=== PATIENT | female | born 1940 | race Caucasian/White ===

== ENCOUNTER → 2018-02-15 03:42 | Outpatient (CLI) | payer MEDICARE, OTHER, SELFPAY ==
[2018-02-15 10:40] LABS: CREATININE 1.22 mg/dL (0.55-1.02); Estimated GFR 42.74 (mL/min/1.73m2)
== END ==
PROVIDERS: PCP Family Medicine; Visit Provider Family Medicine
DX: E78.5 Hyperlipidemia, unspecified (principal)
CPT/HCPCS: 36415; 82565

== ENCOUNTER → 2018-02-18 00:21 | Outpatient (CLI) | payer MEDICARE, OTHER, SELFPAY ==
--- NOTE | 2018-02-18 09:43 | DI.REPORT_ITS ---
SYMPTOM/DIAGNOSIS: LUMBAR RADICULOPATHY M54.16, L2-4 PAIN, LEG PAIN MRI LUMBAR SPINE: Routine noncontrast examination was performed. There is spinal fixation seen at L5-S1. The conus medullaris has a normal appearance and location. At L5-S1 there is no focal disc herniation or central spinal canal stenosis. Mild bilateral neural foraminal stenosis is present. At L4-L5 there is a mild diffuse disc bulge. No focal disc herniation or central spinal canal stenosis is present. No significant neural foraminal stenosis is seen. At L3-L4 there is disc desiccation. End plate degenerative signal changes are present. There is mild diffuse disc bulge. There are hypertrophic changes of the facets and ligamentum flavum. No significant central spinal canal stenosis is present. There is mild narrowing of the neural foramen bilaterally. At L2-L3 there is a diffuse disc bulge. There are hypertrophic changes of the facets and ligamentum flavum causing mild narrowing of the central spinal canal. There is no significant neural foraminal stenosis. At L1-L2 there is a mild diffuse disc bulge. Disc desiccation is present. No focal disc herniation, central spinal canal or neural foraminal stenosis is seen. Following contrast administration no significant abnormal enhancement is identified. IMPRESSION: Multi-level degenerative changes in the lumbar spine resulting in multi-level central spinal canal neural foraminal stenosis as described above.
--- NOTE | 2018-02-18 10:30 | DI.REPORT_ITS ---
SYMPTOM/DIAGNOSIS: SEVERE T11-12 PAIN, THORACIC SPINE PAIN M54.56 MRI THORACIC SPINE: Routine noncontrast examination was performed. There is normal signal in the spinal cord. There is a right convex curvature of the thoracic spine. Mild degenerative changes are seen in the thoracic spine with end plate osteophytes and end plate degenerative signal change noted. No central spinal canal or neural foraminal stenosis is seen in the thoracic spine. There are several small disc bulges seen throughout the thoracic spine. IMPRESSION: 1. No central spinal canal or neural foraminal stenosis is seen in the thoracic spine. 2. Mild to moderate degenerative changes seen in the thoracic spine. 3. Right convex curvature of the thoracic spine.
[2018-02-18] MEDS: Gadoterate meglumine 20 ML VIAL 8 ML IVP (11:35)
== END ==
PROVIDERS: PCP Family Medicine; Visit Provider Family Medicine
DX: M54.16 Radiculopathy, lumbar region (principal); M54.6 Pain in thoracic spine; Z47.89 Encounter for other orthopedic aftercare; M51.26 Other intervertebral disc displacement, lumbar region; M51.16 Intervertebral disc disorders with radiculopathy, lumbar region; M51.14 Intervertebral disc disorders with radiculopathy, thoracic region
CPT/HCPCS: 72146; 72158

== ENCOUNTER → 2018-03-03 09:46 | Outpatient (CLI) | payer MEDICARE, OTHER, SELFPAY ==
[2018-03-08 10:40] LABS: Misc Referral (MAYO) SEE COMMENTS
== END ==
PROVIDERS: PCP Family Medicine; Visit Provider Internal Medicine Hematology & Oncology
DX: C92.10 Chronic myeloid leukemia, BCR/ABL-positive, not having achieved remission (principal)
CPT/HCPCS: 36415; 81206

== ENCOUNTER 2018-03-08 09:00 | Outpatient (RCR) | payer MEDICARE, OTHER, SELFPAY ==
--- NOTE | 2018-02-09 10:47 | IE_ITS ---
Date: February 09, 2018 Referring: Tana Adler M.D. M.D. Diagnosis: acute right sided LBP and right sided thoracic pain SUBJECTIVE: History of Present Illness: Rubina reports an insidious onset of right sided LBP one week ago. She spent the night at a B&B, sleeping on a different bed, and thinks this may have aggravated her symptoms. Cannot really recall any injury per say. Symptoms intensified over two days, to the point where she started having intensifying LBP that turned into radiculopathy in the right LE, down the posterior lateral aspect to her ankle. Pain Rating: At time of I.E. 7/10 and at its worst 9/10 in the past 3 days. Pain Location: Right sided LB, glute/buttock radiating down the posterior lateral thigh to the ankle. Denies any foot symptoms. Current Level of Function: Unable to walk, stand or lift. Also, has discomfort after sitting for greater than 15 minutes. She has resorted to walking with a cane. Has limited ability to lift objects from floor level. She denies any bowel or bladder dysfunction. (-) cough / sneeze. Previous Treatment: N/A Social: Lives in a multi level home with her . They are retired. Comorbidities: GERD, hypertension, diverticulosis, chronic myelocytic leukemia, asthma, hyperlipidemia, impaired renal function, multi nodular goiter, neuropathy, right shoulder pain, thyroid nodule, lumbar fusion L5/S1 Medications: See patient EMR. Quality of Life: __x__ Fair Standardized Measures: MOLBPDQ: __56%__ OBJECTIVE: Posture: The patient presents with decreased lumbar lordosis, level iliac crests and tends to shift her weight in stance to the left LE, but with a (-) lateral shift. Gait: Antalgic with weight bearing on the right and decreased stance phase on the right with use of a cane. She was educated in proper cane use, as she was initially using it in her right hand. Palpation: Pain with PAs to L3/4. Pain with palpation through the glute medius and piriformis on the right. Also, increased tone through the lumbar paraspinals on the right. Hypo mobility detected with PAs through the lower thoracic and upper lumbar spine; T10 through L3. ROM: Active lumbar spine ROM into flexion 6 fingertips to floor with a pulling sensation through the low back, however no reproduction of radiculopathy. Extension 10 with complaints of central LBP without radiculopathy. Side bending 4 fingertips to the lateral knee joint line right ; 2 1/2 fingertips to the lateral knee joint line left. Rotation is 60 bilaterally with tightness reported at end range. Hip ROM is WFL. Strength: 4/5 bilateral LEs with pain with resisted hip flexion and unilateral heel raise on the right. She is able to heel walk and toe walk. Neuro: The patient reports intact sensation to light touch throughout bilateral LEs. DTRs are +2 knee jerk bilaterally and +1 ankle jerk bilaterally. Myotomes are congruent bilaterally; no deficits. Special Tests: (-) dural tension testing with SLR or slump testing. (+) quadrant compression testing on the right. Diagnostics: Xrays reveal interval worsening of degenerative disc changes at L3 /4 and questionable L4/5 compared to xrays in 2016. Treatment: IE: 78207 x1 Unattended estim: 84565 x1 Patient Education: I.E. followed by integrated dry needling (esteban fee for service). The patient read and signed dry needling information and consent for treatment today. She was educated in the definition of dry needling risks and benefits as well as typical response and expected outcomes. Quantitative analysis: right deep radial nerve 2/4, left deep radial nerve 2/4 , right saphenous nerve 3/4; left saphenous nerve 2/4 = 9/16 indicating an average responder to dry needling, needing up to 16 treatment with their effects lasting 4 to 6 months. Homeostatic points used today: bilateral superior cluneal and inferior gluteal 3 as well as symptomatic points: 3 through the glute medius along with the medial and lateral piriformis trigger points with 3 needles on the right. Also , applied estim connecting paraspinal sites L3 through L5 with 2. On the right , estim was applied from L3 to trigger point in the lateral distal hamstring x8 min. She then received moist heat with estim to the low back x10 minutes in prone. Direct treatment time: 11:00 A.M. til 12:00 P.M. ASSESSMENT: Patient is a 77-year-old female, referred for PT services with the diagnosis of acute right sided LBP and right sided sciatica. Patient presents with clinical signs and symptoms consistent with this diagnosis, as demonstrated by the following impairment level findings: impaired joint mobility, motor function, muscle performance and ROM associated with spinal disorder Impairments are contributing to the following functional limitations: as listed above Patient is assessed as: __x__ Low 02350 complexity, based on the following: History: (list): See comorbidities and social history. Examination: (list): See above for functional limitations and impairments. Presentation: Stable and uncomplicated Decision-Making: Low complexity ____ Patient requires skilled PT intervention to remediate the above functional limitations to return to: __x__ Return to full functional mobility Prognosis: ___ __x__ Fair G-Codes (fill in modifier after appropriate code): Patient's primary functional limitation is in the category of: __x__ Mobility - walking and moving around : [id number] Projected goal: __x__ Mobility - walking and moving around: [id number] based on the MOLBPQ STG: __6__ weeks. 1) decrease pain by 50% 2) decrease right LE radiculopathy by 50% 3) patient independent in HEP 4) improve standing tolerance to greater than 15 minutes without pain LTG: __12__ weeks. 1) return to full, painfree functional mobility 2) patient independent in symptom management 3) decrease MOLBPQ to less than 25% PLAN: Patient to be seen 2x per week, for 12 weeks, adjusting frequency of visits per patient symptoms and response to treatment. Treatment to include: Manual therapy - 48183 - soft tissue mobs, integrated dry needling Consider use of ultrasound (57908) to the glute medius, continuous, @1.0 watt per cm sq. Therapeutic exercise - 73223 - core stabilization Unattended estim - 64949- applied w/moist heat for pain control The patient is in agreement with the above POC, and is to be discharged when the above goals have been met. Thank you for this referral. Please do not hesitate to contact me with any questions or concerns regarding this patient's plan of care. Please sign, date and return to our clinic with your approval..................................... Tana Adler M.D.
--- NOTE | 2018-02-11 08:00 | PTTR_ITS ---
DATE: 02/11/18 SUBJECTIVE: Rubina indicates today that she continues to be very uncomfortable. Nights have been particularly miserable for her. States she did travel to dinner yesterday evening and utilized a cold pack the entire trip and on the way home, did have to take a pain pill to tolerate the ride home. States she will be contacting Dr. Adler's office on Wednesday to see if she can go ahead and get the consult to Dr. Freeman started. Manual therapy: ([id number]). Did receive soft tissue mobilization throughout the R upper to low back and buttock, while in L sidelying with pillow between knees and under head. This did include tendon massage along the vertebra and medial scapular border, as well as along the iliac crest and sacral border/ posterior greater troch. Trigger point work throughout the piriformis, gluts, QL region and also cross friction along the mid thoracic and lumbar paraspinal was also performed. Did utilize facial stretching throughout the low back region and buttock while in the same position. * x Electrical Stim Unattended - 11112: Ended with IFC and spot cold to the R low back/buttock with global moist heat throughout the remaining back while in sidelying position x15 mins. Direct treatment time: 20 mins Total treatment time: 35 mins SG/dl
--- NOTE | 2018-02-14 15:48 | PTTR_ITS ---
DATE: 02/14/18 SUBJECTIVE: Rubina states she saw Dr. Adler who is indeed ordering her a MRI as well as setting her up with Dr. Freeman at [facility]. She is having a MRI of both the thoracic and lumbar spines. Reports no change in her symptoms. Still having difficulty sitting and/or standing. Position of comfort is lying down. Typically feels O.K. in the morning when first waking up, but symptoms intensify as she starts walking, performing housework and self ADLs. OBJECTIVE: Manual therapy: ([id number]). Manual distraction via leg pulls followed by gentle Grade 2 and Grade 3 PA mobs to the lower thoracic and lumbar spine, segmental rotational mobs at Grades 2 and 3, L1 through L4. Also, performed soft tissue mobs throughout bilateral lumbar and thoracic paraspinals, iliac crests, QL and PRT through bilateral glute medius and piriformis. * x Electrical Stim Unattended - [id number]: applied to the back x15 minutes in prone. Direct treatment time: 1:10 til 2:00 P.M. Assessment: No significant symptom change. Plan: Continue as indicated above progressing with stabilization supine exercises. MM/gc
--- NOTE | 2018-02-16 09:00 | PTTR_ITS ---
DATE: 02/16/18 Co-treat with supervising PT, Arnaud Marcial. OBJECTIVE: Manual therapy: ([id number]). Mobilization of soft tissue throughout the entire back while in prone. Utilized tendon massage along the iliac crest, lumbar and thoracic vertebrae, medial scap border and sacral border / posterior greater troch, with focus on the right. TPM to the upper traps and rhomboids. CFM to the right lower thoracic paraspinals and gluts. * Ended session with cryotherapy x 10 minutes to entire back and buttocks while in prone, at no charge. Direct treatment time: 15 minutes Total treatment time: 25 minutes, post time spent with supervising PT.
--- NOTE | 2018-02-16 13:38 | PTTR_ITS ---
DATE: 02/16/18 SUBJECTIVE: Rubina states she started her Prednisone taper, and feels 80% improved. Denies any radiculopathy. Still feels a heaviness around her low back region, but has no radiculopathy to speak of. She has a MRI Wednesday, and is looking forward to a consultation with Dr. Celis at [facility] in the next couple of weeks. We had a long discussion regarding symptom presentation regarding her DDD, trying to decrease the inflammation around the nerve roots, as this likely did not happen overnight. If she can get better foraminal clearance by decreasing the inflammation then she may not need to be as aggressively thinking about surgery. If she is able to maintain symptoms with use of Prednisone, and holds up well without surgery she may want to consider having any prescription of Prednisone to take with her to [facility] just in case she has an exacerbation of symptoms. She will discuss this with her PCP. OBJECTIVE: Manual therapy: ([id number]). Right LE distraction via leg pulls followed by Mulligan style SLR. Then performed PA mobs Grades 2 and 3 through the lumbar spine and some sacral decompression. Also, performed bent knee fall outs and bilateral knee to chest in supine. She then rec'd soft tissue mobs performed by the [facility]. For details see her note. Direct treatment time: 30 minutes Assessment: Prednisone is offering excellent symptom reduction in her radiculopathy and central low back pain. We discussed cutting back on her muscle relaxant as well as weaning from her narcotics. She is a little hesitant to do so at this time. Plan: Follow up with Rubina next week 1x as she is decreasing from 2 to 1 tablets for her steroidal taper. Will also be able to review her MRI results. MM/gc
--- NOTE | 2018-02-23 09:00 | PTTR_ITS ---
DATE: 02/23/18 SUBJECTIVE: Rubina states that the Prednisone is wearing off and she is starting to experience more back pain and actually experiencing some L radicular symptoms into her buttock. Uncertain as to whether or not this is related to the way she has compensated with her walking. She has not heard back from Dr. Freeman's office at [facility] for consultation there. Manual therapy: ([id number]). Manual distraction via leg pulls individual LE's, (-) dural tension testing with SLR or slump test on either LE. Does have mild pain with resisted hamstring strength test on the L at 4+/5. Also mild pain with hamstring stretch on L reproducing some of her lower buttock discomfort. We work on some hold/relax hamstring stretching followed by PA mobilizations to the lumbar spine grade 2 and 3 as well as rotational mobilizations in prone. Total treatment time: 30 mins, with continued care with Angelia Marquez PTA ( see her note for specifics) A: Patient reports intensifying symptoms as she is weaning off her Prednisone. Is really anxious to get in with Dr. Freeman as she is convinced she is a surgical candidate and this will correct her issues. I do discuss initiating some postural stabilization which she is agreeable to and will begin this next visit. MM/dl
--- NOTE | 2018-02-23 09:30 | PTTR_ITS ---
DATE: 02/23/18 Co-treat with supervising PT, Arnaud Marcial. OBJECTIVE: Manual therapy: ([id number]). Mobilization of mid to low back / bilateral buttock and left hamstring. This included tendon massage along the thoracic / lumbar vertebrae, iliac crest, sacral borders and posterior greater trochanters. TPM to bilateral QLs, glut med / max and piriformis, and CFM to attachment of left hamstring. Fascial stretching throughout the entire back, buttocks and left hamstrings while in prone. Due to complaints of neck tension in the last few days brief TPM to bilateral upper traps, lev scap and scalenes and gentle soft tissue stretching to these regions was performed while in supine, at no charge. Declined need for cryotherapy at conclusion of session, indicated she was feeling pretty good. Direct treatment time: 25 minutes, with 10 minutes at no charge Total treatment time: 25 minutes
--- NOTE | 2018-03-04 16:00 | PTTR_ITS ---
DATE: 03/04/18 SUBJECTIVE: Indicated she was put on Gabapentin and Symbolia earlier in the week. Not sure if this is any better than what she has been on. Seeing a surgeon at [facility] mid March. OBJECTIVE: Manual therapy: ([id number]). Mobilization of lumbar region consisting of supine unilateral leg pulls, prone grade 1-2 PA mobs and segmental rotational mobs. While in prone patient received STM throughout the mid-low back and buttock regions. This included tendon massage along the lower thoracic / lumbar vertebrae, iliac crest and right sacral border, CFM to lumbar paraspinals and fascial stretching throughout the entire mid-low back and right buttock. Instructed in supine and seated TA activation exercise, having patient hold contraction for 30 seconds each. Given written instructions, see copy of instructions in file. Able to perform this exercise appropriately while in supine while in clinic today without discomfort. * Ended session with cryotherapy x 10 minutes to low back and right buttock. Direct treatment time: 20 minutes Total treatment time: 30 minutes
--- NOTE | 2018-03-08 14:36 | PTTR_ITS ---
DATE: 03/08/18 SUBJECTIVE: Rubina states that she is doing a little better in regards to pain with the new meds. She is looking forward to her appt with the spine clinic. OBJECTIVE: Manual therapy: ([id number]). LE distractions via leg pulls as well as Mulligan SLR. Myofascial leg pulls. She went into prone and received PA mobs at grade I/II. STM t/o entire low back and pelvic brim region and into upper buttocks. CFM over bilateral paraspinals, pelvic brim and sacral borders. Myofascial stretching and tendon massage. She ended with cryo x 10 min while in the prone position. Direct treatment time: 30 min Total treatment time: 40 min
== END 2018-03-11 23:59 | disposition home or self-care (01) ==
LOC: PT 09:00
PROVIDERS: PCP Family Medicine; Referring Provider Family Medicine; Visit Provider Family Medicine
DX: M54.41 Lumbago with sciatica, right side (principal)
CPT/HCPCS: 97014; 97140; 97161; G8978

== ENCOUNTER 2018-04-29 00:34 | Outpatient (CLI) | payer MEDICARE, OTHER, SELFPAY ==
--- NOTE | 2018-04-29 08:36 | DI.MRI_ITS ---
SYMPTOM/DIAGNOSIS: BALANCE PROBLEM, R26.89, ? CERVICAL MYELOPATHY, G95.9, NUMBNESS IN FINGERS, R20.0 CERVICAL SPINE MRI: MRI examination of the cervical spine was performed according to the usual protocol. Current examination is compared with previous examination of 2014. The previous examination is of higher technical quality due to significant motion artifact on today's examination. Note is again made of disc osteophyte complex prominence on the right at C 3-4 with moderate right neural foraminal narrowing. At C 4-5, there is prominence of the disc osteophyte complex and bilateral neural foraminal narrowing, right greater than left. At C 5-6, again there are prominent endplate osteophytes causing bilateral neural foraminal narrowing, no gross central canal spinal stenosis although there is effacement of the anterior CSF space. At C 6-7, there is bilateral neural foraminal narrowing and again effacement of the anterior CSF space without true central canal spinal stenosis. No other significant findings. IMPRESSION: Degenerative changes causing multi level neural foraminal narrowing as described above. Borderline diameter of central spinal canal at C 5-6 and C 6-7. No cervical spinal cord deformity or signal abnormality is seen. No gross interval change from 09/18/2014.
== END 2018-04-29 00:54 ==
PROVIDERS: PCP Family Medicine; Visit Provider Neurological Surgery
DX: R26.89 Other abnormalities of gait and mobility (principal); R20.0 Anesthesia of skin; M50.322 Other cervical disc degeneration at C5-C6 level
CPT/HCPCS: 72141

== ENCOUNTER 2018-06-13 09:29 | Outpatient (CLI) | payer MEDICARE, OTHER, SELFPAY ==
[2018-06-16 14:10] LABS: BCR/ABL1, p210 Result see interpretation; Specimen Type EDTA WHOLE BLOOD
== END 2018-06-13 09:49 ==
PROVIDERS: Nurse Practitioner Family; PCP Family Medicine; Visit Provider Internal Medicine Hematology & Oncology
DX: C92.10 Chronic myeloid leukemia, BCR/ABL-positive, not having achieved remission (principal)
CPT/HCPCS: 36415; 81206

== ENCOUNTER 2018-06-20 10:20 | Outpatient (CLI) | payer MEDICARE, OTHER, SELFPAY ==
[2018-06-20 13:07] LABS: HCT 39.6 % (36.0-46.0); HGB 12.5 g/dL (12.0-15.5); Mean Corp. HGB Concentration 31.6 g/dL (32.0-36.0); Mean Corpuscular Hemoglobin 26.9 pg (27.0-33.0); Mean Corpuscular Volume 85.2 fL (80-95); Mean Platelet Volume 10.2 fL (8.0-11.0); Platelet Count 194 x1000/uL (130-400); RBC 4.65 m/cumm (4.00-5.20); RBC Distribution Width 15.8 % (11.7-14.6); White Blood Cell Count 4.85 k/cumm (4.4-10.8)
[2018-06-20 14:07] LABS: ALT 18 U/L (12-78); AST 27 U/L (15-37); Albumin 3.7 g/dL (3.4-5.0); Alkaline Phosphatase 71 U/L (46-116); BUN 21 mg/dL (7-18); Bilirubin, Total 0.5 mg/dL (0.2-1.0); CREATININE 0.99 mg/dL (0.55-1.02); Calcium 9.3 mg/dL (8.5-10.1); Chloride 103 mmol/L (98-107); Estimated GFR 54.39 (mL/min/1.73m2); Glucose 114 mg/dL (70-100); Potassium 4.3 mmol/L (3.5-5.1); Sodium 141 mmol/L (136-145); TSH (W/Ref FT4) 0.34 uIU/mL (0.358-3.74); Total Protein 6.9 g/dL (6.4-8.2)
[2018-06-20 14:25] LABS: FREE T4 0.98 ng/dL (0.76-1.46)
== END 2018-06-20 10:40 ==
PROVIDERS: PCP Family Medicine; Visit Provider Family Medicine
DX: R53.1 Weakness (principal); R11.2 Nausea with vomiting, unspecified; I10 Essential (primary) hypertension
CPT/HCPCS: 80053; 85027; 84439; 84443

== ENCOUNTER 2018-07-26 01:58 | Outpatient (CLI) | payer MEDICARE, OTHER, SELFPAY ==
[2018-07-28 11:56] LABS: Specimen Type WHOLE BLOOD EDTA
[2018-07-29 10:03] LABS: BCR/ABL1, p210 Result see interpretation
== END 2018-07-26 02:18 ==
PROVIDERS: PCP Family Medicine; Visit Provider Internal Medicine Hematology & Oncology
DX: C92.10 Chronic myeloid leukemia, BCR/ABL-positive, not having achieved remission (principal)
CPT/HCPCS: 36415; 81206

== ENCOUNTER 2018-08-18 02:50 | Outpatient (CLI) | payer MEDICARE, OTHER, SELFPAY ==
--- NOTE | 2018-08-18 | PFT_ITS ---
PULMONARY FUNCTION TEST REPORT Patient identification Rubina Pizarro DATE OF 40 DATE OF SERVICE 08/18/2018 REQUESTING PROVIDER - Tana Adler M.D. INTERPRETATION OF STUDY Spirometry shows mild obstructive airways disease with no bronchodilator response. LUNG VOLUMES - Lung volumes show no evidence of restriction. DIFFUSION CAPACITY- Moderately reduced, which is normal when corrected to alveolar volume. Likely represents a somewhat suboptimal patient effort. AIRWAY RESISTANCE - Normal. IMPRESSION Borderline mild obstructive airways disease with no significant bronchodilator response. There also appears to be moderate diffusion defect, which is normal when corrected to alveolar volume, however, it likely represents a somewhat suboptimal patient effort. When this study was compared to previous one from , the patient has a 520 cc improvement in FVC. FEV1 has improved by 300 cc. Clinical correlation recommended. Lorri Frausto M.D. BO/elizabeth T 08/22/2018
[2018-08-18] MEDS: Inhaler, Assist Device 1 EACH MC (15:25)
[2018-08-18] MEDS: Albuterol HFA 18 GM 200 PUFF INH IH (15:25)
== END 2018-08-18 03:10 ==
PROVIDERS: PCP Family Medicine; Visit Provider Family Medicine
DX: J45.909 Unspecified asthma, uncomplicated (principal); J06.9 Acute upper respiratory infection, unspecified
CPT/HCPCS: 94060; 94150; 94726; 94729

== ENCOUNTER 2018-10-06 00:51 | Outpatient (CLI) | payer MEDICARE, OTHER, SELFPAY ==
[2018-10-06 11:37] LABS: Abs Immature Grans 0.01 k/cumm (0.0-0.09); Absolute Basophil Count 0.02 k/cumm (0.0-0.2); Absolute Monocyte Count 0.25 k/cumm (0.11-0.7); Absolute Neutrophil Count 2.57 k/cumm (1.2-6.7); Basophils % 0.5; Eosinophils % 2.4; HCT 43.3 % (36.0-46.0); HGB 13.7 g/dL (12.0-15.5); Immature Grans % 0.2; Lymphocytes % 28.9; Mean Corp. HGB Concentration 31.6 g/dL (32.0-36.0); Mean Corpuscular Hemoglobin 27.3 pg (27.0-33.0); Mean Corpuscular Volume 86.4 fL (80-95); Mean Platelet Volume 11.1 fL (8.0-11.0); Platelet Count 187 x1000/uL (130-400); RBC 5.01 m/cumm (4.00-5.20); RBC Distribution Width 15.6 % (11.7-14.6); White Blood Cell Count 4.15 k/cumm (4.4-10.8)
[2018-10-06 11:49] LABS: ALT 16 U/L (12-78); AST 20 U/L (15-37); Albumin 3.7 g/dL (3.4-5.0); Alkaline Phosphatase 67 U/L (46-116); BUN 24 mg/dL (7-18); Bilirubin, Total 0.4 mg/dL (0.2-1.0); CREATININE 1.03 mg/dL (0.55-1.02); Chloride 103 mmol/L (98-107); Estimated GFR 51.82 (mL/min/1.73m2); Glucose 204 mg/dL (70-100); Potassium 4.1 mmol/L (3.5-5.1); Sodium 139 mmol/L (136-145); Total Protein 6.9 g/dL (6.4-8.2)
[2018-11-03 09:20] LABS: Specimen Type Peripheral blood
== END 2018-10-06 01:11 ==
PROVIDERS: PCP Family Medicine; Visit Provider Internal Medicine Hematology & Oncology
DX: C92.10 Chronic myeloid leukemia, BCR/ABL-positive, not having achieved remission (principal)
CPT/HCPCS: 80053; 81206; 85025

== ENCOUNTER 2018-10-27 00:06 | Outpatient (CLI) | payer MEDICARE, OTHER, SELFPAY ==
--- NOTE | 2018-10-27 14:42 | DI.US_ITS ---
SYMPTOMS/DIAGNOSIS: THYROID NODULE, E04.1 THYROID NODULE: Thyroid ultrasound was performed according to the usual protocol. Right thyroid lobe measures 42 x 17 x 12 mm. Left thyroid lobe measures 37 x 11 x 18 mm. There is a 4.3 cm in greatest diameter lower pole right thyroid lobe mass with heterogeneous internal appearance and some possible calcifications. This shows mildly increased vascularity. A 10 mm in diameter left thyroid lobe mid lobe mass is also seen, which is heterogeneous in appearance and contains some calcifications. CONCLUSION: Bilateral dominant thyroid nodules containing calcifications. Thyroid carcinoma not excluded. Biopsy recommended.
== END 2018-10-27 00:26 ==
PROVIDERS: PCP Family Medicine; Visit Provider Otolaryngology
DX: E04.1 Nontoxic single thyroid nodule (principal); D44.0 Neoplasm of uncertain behavior of thyroid gland
CPT/HCPCS: 76536

== ENCOUNTER 2018-11-03 02:58 | Outpatient (CLI) | payer MEDICARE, OTHER, SELFPAY ==
[2018-11-03 11:45] LABS: ALT 17 U/L (12-78); AST 20 U/L (15-37); Abs Immature Grans 0.03 k/cumm (0.0-0.09); Absolute Basophil Count 0.03 k/cumm (0.0-0.2); Absolute Eosinophil Count 0.17 k/cumm (0.0-0.7); Absolute Lymphocyte Count 1.72 k/cumm (1.2-3.4); Absolute Monocyte Count 0.39 k/cumm (0.11-0.7); Absolute Neutrophil Count 4.39 k/cumm (1.2-6.7); Albumin 3.5 g/dL (3.4-5.0); Alkaline Phosphatase 54 U/L (46-116); Anion Gap 12.3 mmol/L (3-11); BUN 28 mg/dL (7-18); Basophils % 0.4; Bilirubin, Total 0.4 mg/dL (0.2-1.0); CO2 23.7 mmol/L (21.0-32.0); CREATININE 1.06 mg/dL (0.55-1.02); Calcium 9.2 mg/dL (8.5-10.1); Chloride 104 mmol/L (98-107); Eosinophils % 2.5; Estimated GFR 50.14 (mL/min/1.73m2); Glucose 128 mg/dL (70-100); HCT 40.6 % (36.0-46.0); Immature Grans % 0.4; Lymphocytes % 25.6; Mean Corpuscular Hemoglobin 28.4 pg (27.0-33.0); Mean Corpuscular Volume 88.6 fL (80-95); Mean Platelet Volume 10.8 fL (8.0-11.0); Monocytes % 5.8; Neutrophils % 65.3; Platelet Count 168 x1000/uL (130-400); Potassium 4.1 mmol/L (3.5-5.1); RBC 4.58 m/cumm (4.00-5.20); RBC Distribution Width 15.2 % (11.7-14.6); Sodium 140 mmol/L (136-145); Total Protein 6.7 g/dL (6.4-8.2); White Blood Cell Count 6.73 k/cumm (4.4-10.8)
[2018-11-11 13:38] LABS: Specimen Type Peripheral blood
== END 2018-11-03 03:18 ==
PROVIDERS: PCP Family Medicine; Visit Provider Internal Medicine Hematology & Oncology
DX: C92.10 Chronic myeloid leukemia, BCR/ABL-positive, not having achieved remission (principal)
CPT/HCPCS: 36415; 80053; 81206; 85025

== ENCOUNTER 2018-12-22 02:09 | Outpatient (CLI) | payer MEDICARE, OTHER, SELFPAY ==
[2018-12-28 13:09] LABS: HGB 13.7 g/dL (12.0-15.5); Mean Corp. HGB Concentration 31.9 g/dL (32.0-36.0); Mean Corpuscular Hemoglobin 28.1 pg (27.0-33.0); Mean Corpuscular Volume 88.1 fL (80-95); Platelet Count 178 x1000/uL (130-400); RBC 4.88 m/cumm (4.00-5.20); RBC Distribution Width 14.1 % (11.7-14.6); White Blood Cell Count 5.03 k/cumm (4.4-10.8)
[2018-12-28 13:10] LABS: Albumin 3.6 g/dL (3.4-5.0); Alkaline Phosphatase 77 U/L (46-116); BUN 21 mg/dL (7-18); Bilirubin, Total 0.4 mg/dL (0.2-1.0); CREATININE 1.09 mg/dL (0.55-1.02); Calcium 9.2 mg/dL (8.5-10.1); Estimated GFR 48.55 (mL/min/1.73m2); Glucose 184 mg/dL (70-100); Mean Platelet Volume 10.5 fL (8.0-11.0); Potassium 4.2 mmol/L (3.5-5.1); Sodium 139 mmol/L (136-145); Total Protein 6.9 g/dL (6.4-8.2)
[2018-12-28 13:11] LABS: ALT 15 U/L (12-78); AST 18 U/L (15-37); Anion Gap 10.5 mmol/L (3-11); CO2 25.5 mmol/L (21.0-32.0); Chloride 103 mmol/L (98-107); TSH (W/Ref FT4) 0.46 uIU/mL (0.358-3.74)
[2018-12-29 09:31] LABS: Specimen Type Peripheral blood
== END 2018-12-22 02:29 ==
PROVIDERS: PCP Family Medicine; Visit Provider Internal Medicine Hematology & Oncology
DX: C92.10 Chronic myeloid leukemia, BCR/ABL-positive, not having achieved remission (principal); E04.2 Nontoxic multinodular goiter
CPT/HCPCS: 36415; 80053; 81206; 85027; 84443

== ENCOUNTER → 2018-12-27 08:05 | Outpatient (BNVA) | payer MEDICARE, OTHER, SELFPAY | PROVIDERS: PCP Family Medicine; Referring Provider Family Medicine; Visit Provider Psychiatry & Neurology Neurology | DX: G56.01 Carpal tunnel syndrome, right upper limb (principal); I10 Essential (primary) hypertension | CPT/HCPCS: 95908; 99204; 99214 ==

== ENCOUNTER → 2019-01-23 13:11 | Outpatient (BNVA) | payer MEDICARE, OTHER, SELFPAY | PROVIDERS: PCP Family Medicine; Referring Provider Family Medicine; Visit Provider Student in an Organized Health Care Education/Training Program | DX: G56.01 Carpal tunnel syndrome, right upper limb (principal); M25.531 Pain in right wrist; I10 Essential (primary) hypertension | CPT/HCPCS: 99203; 99214 ==

== ENCOUNTER 2019-02-01 18:10 | Emergency (ER) | payer MEDICARE, OTHER, SELFPAY ==
[2019-02-01 18:16] VITALS: BP 129/74; PULSE 96; RESP 18; TEMP 36.4; O2SAT 96
--- NOTE | 2019-02-01 18:23 | W.ED.GENAD ---
Discharge Plan Disposition Patient Disposition: HOME Condition: Stable Discharge Details Chief Complaint: Orthopedic Clinical Impression: Contusion of left shoulder, Contusion of arm, left Primary Care Provider: Tana Adler ED Provider: Evangelina Merlos Home Meds and New Rx's Prescriptions: Continued duloxetine 60 mg capsule,delayed release(DR/EC) 60 mg PO DAILY Qty: 90 RF: 11 multivitamin 1 EACH tablet 1 ea PO DAILY RF: 0 calcium carbonate-vitamin D3 [Caltrate with Vitamin D3] 1 EACH tablet 1 ea PO BID RF: 0 acetaminophen [Tylenol Extra Strength] 500 MG tablet 2 tab PO TID PRNRF: 0 triamcinolone acetonide 0.1 % cream 1 applic TP BID Qty: 80 RF: 4 potassium chloride 10 mEq capsule, extended release 10 meq PO BID Qty: 180 RF: 12 fluticasone propionate 50 mcg/actuation spray,suspension 1 spray NS BID Qty: 18.2 RF: 12 omeprazole 40 mg capsule,delayed release(DR/EC) 40 mg PO DAILY Qty: 90 RF: 4 trospium 60 mg capsule,extended release 24hr 60 mg PO QAM Qty: 90 RF: 5 estradiol [Vagifem] 10 mcg tablet 10 mcg VG TWICE A WEEK Qty: 24 RF: 4 Discharge Instructions Instructions: Contusion in Adults (ED) Additional Instructions: Rest and ice left shoulder and upper arm as much as possible. Wear the sling for comfort and to encourage rest. Alternate Tylenol and Motrin as needed and directed for pain. If your symptoms do not improve or worsen, follow-up with orthopedics. Return to the emergency department if you develop any significant worsening or new concerning symptoms for reevaluation and possible CT imaging. Referrals: Leighton Clements MD [ [facility] STAFF PHYSICIAN] - Discharge Data Discharge Date/Time-TO BE ENTERED AT DEPARTURE: 02/01/19 19:45 Discharge Physician: Evangelina Merlos Medical Decision Making 78-year-old female presents with left shoulder and upper arm pain status post mechanical fall prior to arrival. Denies head injury, LOC, chest, abdomen, neck, back or other extremity pain or injury. She has chronic neck pain he states is no worse than usual. Significant tenderness to left shoulder and left upper arm without bony deformity. Neurovascularly intact. No midline C-spine tenderness. Left chest nontender. Superficial abrasions to bilateral knees but no bony deformity. We will give a dose of ibuprofen and sent for left humerus x-ray. Tetanus up-to-date. Humerus x-ray negative for fracture. Patient reassessed and states she feels better. Due to patient's significant level pain on arrival, offered a CT of her upper extremity to assess for an occult fracture but she is declining this at this time. She would rather have a sling placed as the treatment is the same likely for humerus fracture or contusion. She states she is followed by Dr. Clements and will follow up with him for reevaluation as needed. She is instructed to alternate Tylenol and Motrin, rest, ice, wear sling and to return here with any concerns. She declined any other additional pain medication. Medical Records Medical records reviewed: Yes I reviewed the patient's medical records. Imaging Data Radiologic Study: Radiologist's impression: XR Left Humerus EXAM DATE/TIME: 02/01/2019 6:31 PM CLINICAL HISTORY: 78 years old, female; Injury or trauma; Fall; Initial encounter; Blunt trauma (contusions or hematomas; Elbow; Left; Injury date: 02/01/2019 TECHNIQUE: Imaging protocol: XR Left humerus Views: 2 or more views. COMPARISON: US LEFT EXTREMITY ULTRASOUND 03/12/2017 11:10 FINDINGS: Bones/joints: There is degenerative changes of the acromioclavicular joint. There is degenerative changes of the glenohumeral joint with inferior projecting osteophytes. There is heterotopic bone along the medial aspect of the proximal humerus. Soft tissues: Normal. IMPRESSION: 1. No evidence for acute bony injury humerus. 2. Degenerative changes of the glenohumeral joint and the acromioclavicular joint. HPI General Mode of arrival: wheelchair. Date/Time Provider Initiated Documentation: 02/01/19 18:16. Limitations to Documentation: no limitations. Information obtained by: patient. HPI Narrative: Patient is a 78-year-old female presents the ED with complaint of left shoulder pain since a mechanical fall at home just prior to arrival. Patient states she was walking when she was trying to bring her puppies inside and lost her footing and fell in the gravel driveway on her left shoulder. She denies head injury, LOC, vomiting, chest pain, abdominal pain, neck or back pain. She admits to abrasions to both knees but denies any significant knee pain. She is unsure of her tetanus status. Related Data Home Medications Medication Instructions Recorded Confirmed calcium carbonate-vitamin D3 1 ea PO BID 11/14/12 02/02/19 [Caltrate with Vitamin D3] multivitamin 1 ea PO DAILY 11/14/12 02/02/19 acetaminophen [Tylenol Extra 2 tab PO TID PRN 08/17/16 02/02/19 Strength] triamcinolone acetonide 0.1 % 1 applic TP BID #80 gm 08/06/18 02/02/19 topical cream potassium chloride 10 mEq 10 meq PO BID #180 tab 09/15/18 02/02/19 capsule,extended release fluticasone propionate 50 1 spray NS BID #18.2 gm 10/10/18 02/02/19 mcg/actuation nasal spray,suspension omeprazole 40 mg capsule,delayed 40 mg PO DAILY #90 tab-cap 10/24/18 02/02/19 release duloxetine 60 mg capsule,delayed 60 mg PO DAILY #90 tab-cap 11/08/18 02/02/19 release trospium 60 mg capsule,extended 60 mg PO QAM #90 cap 12/14/18 02/02/19 release 24 hr estradiol 10 mcg vaginal tablet 10 mcg VG TWICE A WEEK #24 tab-cap 12/15/18 02/02/19 Previous Rx's Medication Instructions Recorded triamcinolone acetonide 0.1 % 1 applic TP BID #80 gm 08/06/18 topical cream potassium chloride 10 mEq 10 meq PO BID #180 tab 09/15/18 capsule,extended release fluticasone propionate 50 1 spray NS BID #18.2 gm 10/10/18 mcg/actuation nasal spray,suspension omeprazole 40 mg capsule,delayed 40 mg PO DAILY #90 tab-cap 10/24/18 release duloxetine 60 mg capsule,delayed 60 mg PO DAILY #90 tab-cap 11/08/18 release trospium 60 mg capsule,extended 60 mg PO QAM #90 cap 12/14/18 release 24 hr estradiol 10 mcg vaginal tablet 10 mcg VG TWICE A WEEK #24 tab-cap 12/15/18 Allergies Allergy/AdvReac Type Severity Reaction Status Date / Time iodine Allergy Intermediate hives, IV Verified 02/02/19 13:30 black flies Allergy Severe Hives/swell Uncoded 02/01/19 18:22 ing General Stated Complaint: Orthopedic DEANNA: 3 Review of Systems Review of Systems All systems reviewed & are unremarkable except as noted in HPI and below Constitutional Reports as per HPI, Denies chills and Denies fever(s) Eyes Denies blurry vision ENT Denies dizziness, Denies sore throat and Denies throat swelling Cardiovascular Denies chest pain and Denies dyspnea Respiratory Denies cough and Denies dyspnea Gastrointestinal Denies abdominal pain, Denies diarrhea and Denies vomiting Genitourinary Denies hematuria and Denies dysuria Musculoskeletal Denies back pain and Denies numbness Comments: L shoulder and upper arm pain Integumentary/Breasts Denies lesions and Denies rash Neurologic Denies dizziness, Denies focal weakness and Denies numbness Allergic/Immunologic Denies throat swelling [facility] Medical History (Updated 02/02/19 @ 13:41 by Fawn Andrew) Abnormal ECG (Resolved) 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) Asthma Asthma (Chronic 09/13/12) Atrophic vaginitis (Chronic) Campylobacter diarrhea (Resolved 05/18/16) Carpal tunnel syndrome (Resolved) Carpal tunnel syndrome (Chronic 06/10/02) Carpal tunnel syndrome of right wrist (Acute) 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) Chronic myeloid leukemia in remission (Chronic) Depressive disorder (Chronic) Diverticulosis of colon without diverticulitis (Chronic 11/08/08) Elevated fasting glucose (Resolved 05/07/14) Enteritis due to Campylobacter species (Resolved 05/18/16) Essential hypertension (Chronic 11/15/12) Facet arthropathy, lumbar (Resolved 08/07/14) Gastroesophageal reflux disease with esophagitis (Chronic) H/O sigmoidoscopy (Resolved) History of infection of total joint prosthesis of knee Hyperlipidemia (Chronic 11/15/12) Impaired fasting glucose (Chronic 05/07/14) Impaired renal function disorder (Chronic) Knee pain (Resolved 06/10/03) Leg edema, left (Chronic 12/02/17) Lumbar disc disease with radiculopathy (Chronic 11/19/14) Lung nodule seen on imaging study (Resolved 03/27/14) Mass of wrist (Chronic) Meniere disease (Resolved) Menieres disease (Chronic) Multinodular goiter (Chronic 04/11/14) Nausea & vomiting (Resolved) Neuropathy (Chronic 06/24/15) Other diseases of stomach and duodenum (Resolved 09/29/17) Other specified arthropathy, other specified sites (Resolved) Plantar fasciitis (Resolved) Plantar fasciitis (Chronic 03/18/10) PMR (polymyalgia rheumatica) (Resolved) Polymyalgia rheumatica (Chronic 06/10/07) Pyogenic arthritis of knee (Resolved) Sepsis (Resolved) Shoulder pain (Resolved 06/10/03) Thyroid nodule (Chronic 09/30/17) Tubular adenoma of colon (Chronic 06/28/14) Surgical History (Updated 02/02/19 @ 13:41 by Fawn Andrew) Appendectomy Arthroplasty of knee BACK SURGERY (~11/2014) Cholecystectomy (~1985) Colonoscopy - MAC (09/29/17) EGD - MAC (09/29/17) H/O arthroscopy of knee (Resolved) H/O surgical procedure (Resolved) Hysterectomy, Laproscopic (~1972) Replacement of total knee joint Rotator Cuff Repair (~2004) S/P appendectomy (Resolved) S/P cholecystectomy (Resolved) S/P laparoscopic hysterectomy (Resolved) S/P right rotator cuff repair (Resolved) S/P tonsillectomy and adenoidectomy (Resolved) S/P total knee replacement (Resolved) Sigmoidoscopy (~2000) Status post appendectomy (Resolved) Status post cholecystectomy (Resolved) Status post laparoscopic hysterectomy (Resolved) Status post rotator cuff repair (Resolved) Status post tonsillectomy and adenoidectomy (Resolved) Status post total bilateral knee replacement (Resolved) Status post total knee replacement (Resolved) Tonsillectomy and adenoidectomy Family History (Updated 02/02/19 @ 13:41 by Fawn Andrew) Mother Dementia Cancer Father Heart disease Hyperlipidemia Sister No problems noted. Brother No problems noted. Maternal Grandfather No problems noted. Paternal Grandfather No problems noted. Maternal Grandmother Neoplasm Grandmother No problems noted. Son No problems noted. Daughter No problems noted. Social History Smoking/Tobacco Use Status: Never Alcohol Intake: current Alcohol Intake frequency: a few times a week Alcohol type: wine and hard liquor Drug use: Never Substance use type: does not use Caregiver/Support person: No Household members: spouse Housing: house Pets and animals: Yes Pets and animals: dog(s) Sexually active: Yes Do you think of yourself as: straight/heterosexual Current gender identity: female What is your relationship status?: How often do you talk on the phone with friends or family?: three or more times per week How often do you get together with friends or relatives?: decline to answer How often do you attend anabaptism or caodaism services?: decline to answer Do you belong to any clubs or organized social groups?: yes Panel score (0-1 are the most socially isolated patients): 3 What type of physical activity do you participate in: none Frequency: does not exercise Leann/Yazidi: Pentecostal Special leann needs: No Do you feel safe at home: Yes Do you feel safe in your relationship?: Yes Exam Const General: cooperative, healthy appearing and no acute distress HENMT Head: normal to inspection Face and sinus: normal facial exam Eyes General: appearance normal, both eyes and all related structures EOM: EOM intact bilaterally Neck Neck: normal visual inspection and No submandibular swelling Lymphatic: no lymphadenopathy noted Chest Chest: normal inspection of the chest and no tenderness Resp Effort & Inspection: normal respiratory effort and able to speak in complete sentences Auscultation: clear to auscultation bilaterally Cardio Rate: regular rate Rhythm: regular rhythm GI Inspection: normal to inspection Palpation: soft, not firm, not rigid and nontender Auscultation: normal bowel sounds Skin General skin exam: no rashes or lesions noted Neuro General: alert, awake and oriented x3 Cognition: normal cognition Speech: speech normal Motor: muscle tone normal throughout Sensory Exam: no sensory deficits noted Extrem Other: Tenderness to palpation left anterior and lateral shoulder as well as left upper proximal and distal arm. Psych Appearance: grossly normal Mental Status: mental status grossly normal Speech and Movement: speech and movement normal Affect: normal affect Course Vital Signs Temperature 97.5 F L 02/01/19 18:16 Pulse 96 H 02/01/19 18:16 Respiratory Rate 18 02/01/19 18:16 Blood Pressure 129/74 02/01/19 18:16 Pulse Oximetry 96 02/01/19 18:16 Temperature 97.5 F L 02/01/19 18:16 Temperature Source Temporal Artery Scan 02/01/19 18:16 Pulse 96 H 02/01/19 18:16 Respiratory Rate 18 02/01/19 18:16 Blood Pressure 129/74 02/01/19 18:16 Pulse Oximetry 96 02/01/19 18:16 Oxygen Delivery Method Room Air 02/01/19 18:16 Oxygen Flow Rate 0 02/01/19 18:16
[2019-02-01] MEDS: Ibuprofen 600 MG TAB PO (18:41)
--- NOTE | 2019-02-01 18:55 | DI.RAD_ITS ---
SYMPTOM/DIAGNOSIS: S/P FALL ON TO LT SHOULDER, R/O FRACTURE LEFT HUMERUS: No fracture IMPRESSION: Degenerative changes of the shoulder. No acute abnormality.
[2019-02-01 19:08] VITALS: BP 139/77; PULSE 84; RESP 20; O2SAT 98
--- NOTE | 2019-02-01 19:10 | DI.VRAD_ITS ---
EXAM: XR Left Humerus EXAM DATE/TIME: 02/01/2019 6:31 PM CLINICAL HISTORY: 78 years old, female; Injury or trauma; Fall; Initial encounter; Blunt trauma (contusions or hematomas; Elbow; Left; Injury date: 02/01/2019 TECHNIQUE: Imaging protocol: XR Left humerus Views: 2 or more views. COMPARISON: US LEFT EXTREMITY ULTRASOUND 03/12/2017 11:10 FINDINGS: Bones/joints: There is degenerative changes of the acromioclavicular joint. There is degenerative changes of the glenohumeral joint with inferior projecting osteophytes. There is heterotopic bone along the medial aspect of the proximal humerus. Soft tissues: Normal. IMPRESSION: 1. No evidence for acute bony injury humerus. 2. Degenerative changes of the glenohumeral joint and the acromioclavicular joint. Dictated and Authenticated by: Lian Rousseau MD. Ordering:GILL Hutchinson MD
[2019-02-01 19:37] VITALS: BP 107/70; PULSE 85; RESP 16; O2SAT 95
== END 2019-02-01 19:45 | disposition home or self-care (01) ==
PROVIDERS: Emergency Provider Physician Assistant; PCP Family Medicine
DX: S40.022A Contusion of left upper arm, initial encounter (principal); S40.012A Contusion of left shoulder, initial encounter; W18.30XA Fall on same level, unspecified, initial encounter; S80.211A Abrasion, right knee, initial encounter; S80.212A Abrasion, left knee, initial encounter; I10 Essential (primary) hypertension
CPT/HCPCS: 99283; 73060; L3650

== ENCOUNTER 2019-02-09 10:44 | Day surgery (SDC) | payer MEDICARE, OTHER, SELFPAY ==
--- NOTE | 2019-02-09 09:55 | W.PM.DSUDISC ---
Discharge Plan Disposition Patient Disposition: HOME Condition: Good Discharge Details Reason For Visit: Right Carpal Tunnel Syndrome Attending Provider: Leighton Clements Primary Care Provider: Tana Adler Home Meds and New Rx's Prescriptions: New hydrocodone-acetaminophen 5-325 mg tablet 1 tab PO Q6H PRN (Reason: severe pain) Qty: 4 RF: 0 acetaminophen 500 mg tablet 500 mg PO Q6H PRN (Reason: pain) Qty: 60 RF: 0 ibuprofen 600 mg tablet 600 mg PO TID PRN (Reason: pain) Qty: 60 RF: 0 Continued duloxetine 60 mg capsule,delayed release(DR/EC) 60 mg PO DAILY Qty: 90 RF: 11 multivitamin 1 EACH tablet 1 ea PO DAILY RF: 0 calcium carbonate-vitamin D3 [Caltrate with Vitamin D3] 1 EACH tablet 1 ea PO BID RF: 0 acetaminophen [Tylenol Extra Strength] 500 MG tablet 2 tab PO TID PRNRF: 0 triamcinolone acetonide 0.1 % cream 1 applic TP BID Qty: 80 RF: 4 potassium chloride 10 mEq capsule, extended release 10 meq PO BID Qty: 180 RF: 12 fluticasone propionate 50 mcg/actuation spray,suspension 1 spray NS BID Qty: 18.2 RF: 12 omeprazole 40 mg capsule,delayed release(DR/EC) 40 mg PO DAILY Qty: 90 RF: 4 trospium 60 mg capsule,extended release 24hr 60 mg PO QAM Qty: 90 RF: 5 estradiol [Vagifem] 10 mcg tablet 10 mcg VG TWICE A WEEK Qty: 24 RF: 4 Discharge Instructions Stand Alone Forms: Tyree Freeman Tunnel Release Referrals: Leighton Clements MD [ [facility] STAFF PHYSICIAN] - Activity:: Elevate Remove Dressings/Wound Care:: 48 hours Shower/Bathe:: 48 hours Diet:: As Tolerated DS: Diagnosis Discharge Diagnosis (1) Carpal tunnel syndrome of right wrist: Status: Acute
[2019-02-09 11:06] VITALS: BP 139/86; PULSE 99; RESP 16; TEMP 36.3; O2SAT 97
[2019-02-09] MEDS: Lactated Ringers 1,000 ML 80 ML IV (11:36)
[2019-02-09] MEDS: ceFAZolin 2 GM/50 ML BAG IVPB (12:50)
[2019-02-09] MEDS: Lidocaine 1% Pres-Free 5 ML VIAL (13:01)
[2019-02-09] MEDS: Sodium Bicarbonate 50 MEQ/50 ML VIAL (13:01)
[2019-02-09 13:52] VITALS: BP 145/89; PULSE 84; RESP 16; TEMP 36.5; O2SAT 97
[2019-02-09] MEDS: HYDROcodone 5/Acetaminophen 325 TAB PO (13:58)
[2019-02-09 14:28] VITALS: BP 150/93; PULSE 81; RESP 14
--- NOTE | 2019-02-10 07:26 | W.PM.OP ---
Date of service: 02/09/19 Time of Service: 14:26 Operative Note DATE OF PROCEDURE: 02/10/19 PRE-OP DIAGNOSIS: Right Carpal Tunnel Syndrome POST-OP DIAGNOSIS: same PROCEDURE: Right Endoscopic Carpal Tunnel Release SURGEON: Leighton Clements ANESTHESIA: GETLucio ESTIMATED BLOOD LOSS: 0 PATHOLOGY: none sent TOURNIQUET TIME: 6 COMPLICATIONS: None Patient was transported to: same day Patient's condition: stable Indications: I have seen Rubina in clinic for symptoms of carpal tunnel syndrome. The numbness, tingling, and pain limited function. Clinical exam findings with nerve conduction tests confirmed the diagnosis of carpal tunnel syndrome. Nonoperative measures such as bracing, time, activity modifications had been tried but disability and pain persisted. I discussed carpal tunnel release with the patient. I reviewed the risks of the procedure to include, but not limited to, bleeding, infection, pain, stiffness, incomplete release, damage to nerves or vessels, persistent numbness, recurrence. Despite these risks, the patient elected to proceed. Findings: There was tightened carpal tunnel. This was dilated and released successfully with the endoscopic with increased space within the tunnel. The antebrachial fascia was released proximally freeing the median nerve at the wrist. Procedure Description: Rubina was greeted in the preoperative holding area where the correct side was identified and marked. The consent was reviewed with the patient and signed. The history and physical was updated. All questions were answered. Rubina was taken back to the operating room. The patient was placed into the supine position on the operating room table with the right arm on an arm board. A nonsterile tourniquet was placed high onto the arm. All bony prominences were well padded. Prophylactic antibiotics in the form of cefazolin were administered. The right arm was then prepped with Chloraprep and draped in a standard fashion with stockinette and extremity drape. A timeout to confirm correct identity, side and site, procedure, allergies, anesthesia, and medical concerns was performed. The surgical site was marked in the volar wrist creases in line with the radial border of the fourth ray. This area was anesthetized with approximately 6cc of 1% Lidocaine. The limb was then exsanguinated with an Esmarch. The skin was incised with a 15 blade, approximately 1cm. The skin only was cut and the deeper tissue was dissected bluntly with a tenotomy scissor, avoiding passing nerve and venous structures. The fascia was penetrated and opened bluntly. A two-prong skin hook was placed under this proximal fascial edge. A series of hamate finders were used to identify and dilate the carpal tunnel. Synovial elevator was used to free synovial attachments to the underside of the transverse carpal ligament. My thumb was kept in the palm to elsy the distal extent of the carpal tunnel and correctly position the hand. The Microaire endoscope was inserted without difficulty and without resistance. Excellent visualization showed horizontally running fibers of the transverse carpal ligament (TCL). The distal extent of the TCL was visualized and the end of the scope palpated with the thumb. The blade was elevated and withdrawn from distal to proximal. The TCL was split into two flaps. The endoscope was reinserted to confirm complete release and any remnant ligament was incised. The scope was withdrawn and the proximal aspect of the carpal tunnel was grossly inspected and appeared release with the median nerve visible. The antebrachial fascia at the level of the wrist was then freed from the overlying skin and then the underlying median nerve with blunt dissection. This was transected longitudinally for about 3cm proximal to the wrist incision. The wound was then irrigated with easy flow of irrigant distally and proximally. The incision was closed with a single 4-0 Nylon suture. The wound was dressed with Xeroform, Gauze, Kerlix and Darrian. The tourniquet was deflated with the initial dressing and held with some pressure. Blood flow returned easily to all digits with capillary refill less than 2 seconds. The patient tolerated the procedure well and was returned to the Same Day Surgery area in a stable condition suffering no known complication.
== END 2019-02-09 14:49 | disposition home or self-care (01) ==
LOC: SUR 10:45
PROVIDERS: PCP Family Medicine; Visit Provider Student in an Organized Health Care Education/Training Program
PROC: 01N54ZZ Release Median Nerve, Percutaneous Endoscopic Approach (ICD-10-PCS; CPT 29848; principal; 2019-02-09 12:15)
DX: G56.01 Carpal tunnel syndrome, right upper limb (principal); I10 Essential (primary) hypertension; K21.9 Gastro-esophageal reflux disease without esophagitis
CPT/HCPCS: 29848; J0690; L3650

== ENCOUNTER → 2019-02-17 09:23 | Outpatient (BNVA) | payer MEDICARE, OTHER, SELFPAY | PROVIDERS: PCP Family Medicine; Referring Provider Family Medicine; Visit Provider Student in an Organized Health Care Education/Training Program | DX: G56.01 Carpal tunnel syndrome, right upper limb (principal); M75.82 Other shoulder lesions, left shoulder; W18.30XA Fall on same level, unspecified, initial encounter | CPT/HCPCS: 20610; 99213; J1040 ==

== ENCOUNTER 2019-02-28 02:13 | Outpatient (CLI) | payer MEDICARE, OTHER, SELFPAY ==
[2019-03-15 15:45] LABS: Indication for Study See Comments
[2019-03-15 15:46] LABS: BCR-ABL1 p210 FusionTranscript See Comments; Specimen Type Peripheral blood
[2019-03-15 15:47] LABS: BCR-ABL1 Interpretation See Comments
[2019-03-15 15:48] LABS: Limitations and Disclaimers See Comments
== END 2019-02-28 02:33 ==
LOC: LOS 02:13 → LBO 10:25
PROVIDERS: PCP Family Medicine; Visit Provider Nurse Practitioner Family
DX: C92.10 Chronic myeloid leukemia, BCR/ABL-positive, not having achieved remission (principal)
CPT/HCPCS: 36415; 81206

== ENCOUNTER 2019-03-09 22:50 | Outpatient (REF) | payer MEDICARE, OTHER, SELFPAY ==
[2019-03-09 19:22] LABS: Bilirubin Negative (Negative); Blood Trace-intact (Negative); Clarity Cloudy (Clear); Glucose Negative (Negative); Ketones Trace mg/dL (Negative); Leukocyte Esterase Moderate (Negative); Nitrite Positive (Negative); Specific Gravity 1.025 (1.005-1.025); Urobilinogen 0.2 EU/dL (Up TO 0.2); pH 5.5 (5-8)
[2019-03-09 19:55] LABS: Bacteria Packed HPF (Negative); C & S Indicated? Yes; WBC >50 HPF (0-5)
== END 2019-03-09 23:10 ==
LOC: LBN 22:50
PROVIDERS: PCP Family Medicine; Visit Provider Family Medicine
DX: R30.0 Dysuria (principal)
CPT/HCPCS: 87077; 81003; 81015; 87086; 87186

== ENCOUNTER 2019-03-24 09:48 | Outpatient (CLI) | payer MEDICARE, OTHER, SELFPAY ==
--- NOTE | 2019-03-24 14:18 | DI.MRI_ITS ---
SYMPTOMS/DIAGNOSIS: ACUTE WORSENING CERVICALGIA, BRISK UPPER EXTREMITY DEEP TENDON REFLEXES, ATAXIA, LEFT ARM SYMPTOMS, ? CERVICAL MYELOPATHY MRI OF THE CERVICAL SPINE: Comparison is made with April,. T1, T2, STIR and T2 3D sagittal and gradient-echo axial sequences were performed. The exam is somewhat limited by patient motion. The C2-3 level is unremarkable. There are degenerative changes around the dens. There are endplate osteophytes and facet degenerative changes throughout. There is right neural foraminal narrowing at C3-4. At C4-5, there are osteophytes, which are eccentric to the right and cause bilateral neural foraminal narrowing, right greater than left. At C5-6, there is severe bilateral neural foraminal narrowing. At C6-7, there is also severe bilateral neural foraminal narrowing. No disc herniation is seen at any level. There is no significant central canal stenosis. The cord signal appears normal. A hemangioma is seen at T2. IMPRESSION: Stable degenerative disc changes and facet degenerative changes causing multilevel neural foraminal narrowing.
== END 2019-03-24 10:08 ==
PROVIDERS: PCP Family Medicine; Visit Provider Nurse Practitioner Family
DX: M54.2 Cervicalgia (principal); R27.0 Ataxia, unspecified; R29.2 Abnormal reflex; M47.812 Spondylosis without myelopathy or radiculopathy, cervical region
CPT/HCPCS: 72141

== ENCOUNTER → 2019-04-03 09:31 | Outpatient (BNVA) | payer MEDICARE, OTHER, SELFPAY | PROVIDERS: PCP Family Medicine; Referring Provider Family Medicine; Visit Provider Student in an Organized Health Care Education/Training Program | DX: Z98.890 Other specified postprocedural states (principal); M75.82 Other shoulder lesions, left shoulder | CPT/HCPCS: 99213 ==

== ENCOUNTER 2019-05-08 01:49 | Outpatient (CLI) | payer MEDICARE, OTHER, SELFPAY ==
--- NOTE | 2019-05-08 16:26 | DI.DEXA_ITS ---
EXAM: XR DEXA BONE DENSITY W/WO FRANCESCA INDICATION: on prednisone Z79.52 SQL SSRS SSIS DEVELOPER USE OF STEROIDS, M51.16 INTERVERTEBRAL DISC. COMPARISON: LUMBAR SPINE COMPLETE from 02/07/2018 XR humerus LT from 02/01/2019 TECHNIQUE: 2D digital imaging was performed. FINDINGS: The lateral spine shows anterior wedging of the T12 vertebral body. Posterior spinal surgery is seen at L5-S1. Evaluation of the left hip shows a total T-score of 0.1 and a Z-score of 2.1. This is wi thin normal limits. This compares with a total T-score of 2.2 from 2007. Evaluation of the lumbar s pine shows a total T-score of 1.9 and a Z-score 4.5. This is also within normal limits. This compar es with a total T-score of 0.9 from 2007. IMPRESSION: No evidence of osteoporosis.No compression fracture deformities.
== END 2019-05-08 02:09 ==
PROVIDERS: PCP Family Medicine; Visit Provider Family Medicine
DX: M51.16 Intervertebral disc disorders with radiculopathy, lumbar region (principal); Z79.52 Long term (current) use of systemic steroids; Z98.890 Other specified postprocedural states
CPT/HCPCS: 77080

== ENCOUNTER 2019-05-23 09:52 | Outpatient (CLI) | payer MEDICARE, OTHER, SELFPAY ==
--- NOTE | 2019-05-23 06:00 | DI.RAD_ITS ---
EXAM: XR PAIN CLINIC CERVICAL SP 2V CLINICAL HISTORY: cervical medial branch clock#1 left, cervical spondylosis TECHNIQUE: Realtime digital imaging was performed. Fluoro time: 23.1 sec, 5.26 mGy COMPARISON: No exams were available for comparison FINDINGS: Fluoroscopy was utilized by Dr. Fletcher during the performance of a cervical medial branch block. Please refer to the procedure report for complete details.
[2019-05-23 09:55] VITALS: BP 112/71; PULSE 55; RESP 16; TEMP 36.5; O2SAT 96
--- NOTE | 2019-05-23 10:10 | PDOC.PAIN ---
Pain Clinic Procedure Note Procedure Note Procedure Note: PROCEDURE NOTE CERVICAL MEDIAL BRANCH BLOCKS Date of Service: May 23, 2019 Patient: BOYD HOLLOWAY Provider: MD VALERY SANDOVALCy HOLLOWAY has been referred [facility] for cervical medial branch blocks. Pre-operative diagnosis: cervical spondylosis Post-operative diagnosis: same as above COMMENTS: patient has worsening neck pain with radiation to trapezius with neck extension BOYD was interviewed and the medical record were reviewed. There were no medical, pharmacologic, radiographic or other structural contraindications to attempting fluoroscopically guided local anesthetic cervical medial branch blocks. Risks and potential side effects were discussed. We also discussed the potential benefit(s) of the procedure with BOYD, and her voiced concerns were addressed. After she was completely informed about the procedure, the printed consent form was signed. A standard time-out procedure was performed. BOYD was placed in the lateral decubitus position on the fluoroscopy table with the effected side up. Automated blood pressure cuff and pulse oximeter were applied. The skin entry points for approaching the anatomic target points of the segmental medial branches of Left C4, C5, C6 were identified with fluoroscopy and marked. The skin at the target site area was thoroughly prepared with Chlorhexadine. The skin was then drapped. Next, a 25 gauge 1.5 spinal needle was placed under fluoroscopic guidance down on to the target point (the articular pillar) for each respective segmental medial branch. Position was confirmed in A/P and leteral views. Aspiration revealed no blood or clear fluid. Due to documented omnipaque allergy, no contrast was used for this procedure. Next, 0.25 ml of preservative-free 0.5% bupivicaine was injected at each level. BOYD's vital signs were stable throughout the procedure and were as recorded in the docflowsheet by the nursing staff. Provacative testing using the Modified Greenfield's facet loading test Left side Directly before the block VAS (0-10) = 10/10 5 minutes after the block VAS (0-10) = 0/10 Percentage relief obtained with this diagnostic block 100% Any improved physical functioning directly after the blocks? able to rotate her neck and extend her neck without pain on the left side Follow up plans and appointments were discussed with BOYD. BOYD was instructed to keep careful note of how the usual pain was modified by these injections. Specifically, the patient was asked to keep a pain diary for the next 24 hours using a numeric pain scale of 0-10 and report these results at the follow-up visit. Post procedure instruction was given as documented in the nursing documentation and having met discharge criteria, she was discharged from the [facility]. Based on the medial branches blocked today, if they patient has adequate relief and we are able to proceed to radiofrequency ablation, the treatment should result in the denervation of the Left C4-5, C5-6. We would expect to denervate a total of 2 facets during the radiofrequency ablation. COMMENTS: She will call back with her 0-4 hour post-procedure pain scores. I personally performed the entire procedure. Donnie Fletcher MD ABPN-subspecialty board certification in Pain Medicine Attending Physician - Pain Management
[2019-05-23 10:44] VITALS: BP 118/75; PULSE 87; RESP 16; O2SAT 99
[2019-05-23] MEDS: Bupivacaine 0.5% Pres-Free 10 ML VIAL IJ (10:48)
== END 2019-05-23 10:12 ==
PROVIDERS: PCP Family Medicine; Visit Provider Internal Medicine
DX: M47.812 Spondylosis without myelopathy or radiculopathy, cervical region (principal)
CPT/HCPCS: 64490; 64491; 72040

== ENCOUNTER 2019-06-20 13:07 | Outpatient (CLI) | payer MEDICARE, OTHER, SELFPAY ==
[2019-06-20 13:12] VITALS: BP 127/62; PULSE 58; RESP 16; TEMP 36.6; O2SAT 99
--- NOTE | 2019-06-20 13:41 | PDOC.PAIN_ITS ---
Pain Clinic Procedure Note Procedure Note Procedure Note: CERVICAL MEDIAL BRANCH BLOCKS BOYD HOLLOWAY has been referred to the [facility] for cervical medial branch blocks. pre-operative diagnosis: cervical spondylosis without radiculopathy or myelopathy post-operative diagnosis: cervical spondylosis without radiculopathy or myelopathy COMMENTS: patient received significant pain relief from prior left sided cervical medial branch nerve block. Patient was interviewed and the medical record reviewed. There were no medical, pharmacologic, radiographic or other structural contraindications to attempting fluoroscopically guided local anesthetic cervical medial branch blocks. Risks and expected side effects as well as potential benefit of the procedure were reviewed and voiced concerns addressed. The printed consent form was signed and witnessed. Standard time-out procedure was performed. Patient was placed in the lateral decubitus position on the fluoroscopy table and automated blood pressure cuff and pulse oximeter applied. The skin entry po ints for approaching the anatomic target points of the segmental medial branches of left C4, C5, C6 were identified with fluoroscopy and marked. Following thorough Chlorhexadine preparation of the skin and draping and 1% lidocaine infiltration of the skin entry points and subcutaneous tissues, a 25 gauge spinal needle was placed under fluoroscopic guidance down on to the target point for each respective segmental medial branch. Position was confirmed in A/P and leteral views. Due to iodine allergy, no omnipaque was used. This revealed appropriate spread and no vascular uptake. At each point 0.3ml 2% lidocaine was injected. Vital signs were stable throughout the procedure and were as recorded in the docflowsheet by the nursing staff. Follow up plans and appointments were discussed and patient was instructed to keep careful note of how the usual pain was modified by these injections. Specifically, the patient was asked to keep a pain diary for the next 24 hours using a numeric pain scale of 0-10 and report these results at the follow-up visit. Post procedure instruction was given as documented in the nursing documentation and having met discharge criteria, and was discharged from the [facility]. Based on the medial branches blocked today, if they patient has adequate relief and we are able to proceed to radiofrequency ablation, the treatment should result in the denervation of the left C4-5, C5-6. We would expect to denervate a total of 2 facets during the radiofrequency ablation. COMMENTS: patient tolerated procedure well without issue. Post-procedure pain level reported as 0 out of 10. Donnie Fletcher MD Pain Management CC: Tana Adler MD, DC
--- NOTE | 2019-06-20 14:44 | DI.RAD_ITS ---
EXAM: XR PAIN CLINIC CERVICAL SP 2V CLINICAL HISTORY: Cervical Medical Branch Block #2 L. TECHNIQUE: Fluoroscopy was provided for the referring physician for guidance with performing injecti on procedure. COMPARISON: No exams were available for comparison FINDINGS: Please see procedure note for details. Fluoro Time: 60.4 seconds
[2019-06-20 14:52] VITALS: BP 103/79; PULSE 92; RESP 16; O2SAT 95
[2019-06-20] MEDS: Lidocaine 2% Pres-Free 5 ML VIAL IJ (14:54)
== END 2019-06-20 13:27 ==
PROVIDERS: PCP Family Medicine; Visit Provider Internal Medicine
DX: M47.812 Spondylosis without myelopathy or radiculopathy, cervical region (principal)
CPT/HCPCS: 64490; 64491; 72040

== ENCOUNTER 2019-06-27 08:12 | Outpatient (CLI) | payer MEDICARE, OTHER, SELFPAY ==
[2019-06-27 08:22] VITALS: BP 110/70; PULSE 68; RESP 18; TEMP 36.3; O2SAT 94
--- NOTE | 2019-06-27 08:56 | PDOC.PAIN ---
Pain Clinic Procedure Note Procedure Note Procedure Note: Cervical Radiofrequency with Coolief Machine PROCEDURE NOTE Date of Service: June 27, 2019 Patient: BOYD HOLLOWAY Provider: Donnie Fletcher Pre Operative Diagnosis: cervical spondylosis Post Operative Diagnosis: same as above PROCEDURE: 1. C4-5 facet joint radiofrequency denervation 2. C5-6 facet joint radiofrequency denervation BOYD HOLLOWAY was brought to the operating room and placed on the exam table in a comfortable prone position. The place for the needle placement was obtained by manual palpation as well as radiographic confirmation. The sterile field was prepped by chlorhexidine and sterile drapes. Local anesthesia, both superficial and deep was provided by local infiltration of 5 ml Lidocaine 1%. Using fluoroscopic guidance, A 17g 50mm radiofrequency introducer needle with a 2 mm active tip was placed overlying the left C4 cervical vertebra from the posterior approach and was advanced until bony contact was felt with the articular pillar. The needle was walked off the pillar, maintaining contact with the bone. Attempted aspiration revealed no blood or cerebrospinal fluid. Radiographs were then made in AP and lateral. Motor testing was then performed with 2.0 volts and no upper extremity motor stimulation was observed. 1 cc of the 2% Lidocaine was injected through the RF needle. A radiofrequency lesion of the left medial branch of C4 was then performed at 80 degrees Celsius for 2 minutes and 30 seconds. The same procedure was repeated for left C5 and C6 medial branches. POST PROCEDURE EVALUATION: patient tolerated procedure without issue. She received a total of 1mg of IV Versed and 50mcg of IV Fentanyl. Follow up plans and appointments were discussed with the BOYD . Post procedure instruction was given as documented in nursing documentation and having met discharge criteria, BOYD was discharged from the [facility]. COMMENTS: No complications. F/U with our office as needed. I personally performed this entire procedure. Donnie Fletcher MD Attending Physician
[2019-06-27] MEDS: Lactated Ringers 1,000 ML 80 ML IV (09:00)
[2019-06-27] MEDS: fentaNYL 100 MCG/2 ML VIAL IVP ×2 (09:13→09:24)
[2019-06-27] MEDS: Midazolam 2 MG/2 ML VIAL IVP (09:13)
[2019-06-27 09:45] VITALS: BP 147/89; PULSE 88; RESP 15; O2SAT 100
[2019-06-27] MEDS: Dexamethasone Sod. Phos./Pres-Free 10 MG/ML VIAL IJ (09:57)
[2019-06-27] MEDS: Lidocaine 2% Pres-Free 5 ML VIAL IJ (09:57)
--- NOTE | 2019-06-27 10:23 | DI.RAD_ITS ---
EXAM: XR PAIN CLINIC CERVICAL SP 2V CLINICAL HISTORY: Dx: Cervical Spondylosis,CERVICAL RADIOFREQUENCY ABLATION TECHNIQUE: Fluoroscopy was provided for the referring physician for guidance with performing injecti on procedure. COMPARISON: No exams were available for comparison FINDINGS: Please see procedure note for details. FLUORO TIME: 53.7 seconds
== END 2019-06-27 08:32 ==
PROVIDERS: PCP Family Medicine; Visit Provider Internal Medicine
DX: M47.812 Spondylosis without myelopathy or radiculopathy, cervical region (principal)
CPT/HCPCS: 64634; 64633; 72040; J2250; J3010

== ENCOUNTER 2019-07-14 01:49 | Outpatient (CLI) | payer MEDICARE, OTHER, SELFPAY ==
[2019-07-14 09:58] LABS: Abs Immature Grans 0.01 k/cumm (0.0-0.09); Absolute Basophil Count 0.02 k/cumm (0.0-0.2); Absolute Eosinophil Count 0.19 k/cumm (0.0-0.7); Absolute Lymphocyte Count 1.46 k/cumm (1.2-3.4); Absolute Monocyte Count 0.42 k/cumm (0.11-0.7); Absolute Neutrophil Count 3.63 k/cumm (1.2-6.7); Basophils % 0.3; Eosinophils % 3.3; HCT 42.3 % (36.0-46.0); HGB 13.7 g/dL (12.0-15.5); Immature Grans % 0.2 %; Lymphocytes % 25.5; Mean Corp. HGB Concentration 32.4 g/dL (32.0-36.0); Mean Corpuscular Hemoglobin 29.3 pg (27.0-33.0); Mean Corpuscular Volume 90.6 fL (80-95); Mean Platelet Volume 10.5 fL (8.0-11.0); Monocytes % 7.3; Neutrophils % 63.4; Platelet Count 196 x1000/uL (130-400); RBC 4.67 m/cumm (4.00-5.20); RBC Distribution Width 14.3 % (11.7-14.6); White Blood Cell Count 5.73 k/cumm (4.4-10.8)
[2019-07-14 11:38] LABS: ALT 15 U/L (14-59); AST 20 U/L (15-37); Albumin 3.7 g/dL (3.4-5.0); Alkaline Phosphatase 67 U/L (46-116); Anion Gap 10.6 mmol/L (3-11); BUN 26 mg/dL (7-18); Bilirubin, Total 0.5 mg/dL (0.2-1.0); CO2 25.4 mmol/L (21.0-32.0); CREATININE 0.92 mg/dL (0.55-1.02); Calcium 9.2 mg/dL (8.5-10.1); Chloride 106 mmol/L (98-107); Estimated GFR 59.04 (mL/min/1.73m2); Glucose 146 mg/dL (74-106); Potassium 4.4 mmol/L (3.5-5.1); Sodium 142 mmol/L (136-145)
[2019-07-18 18:12] LABS: BCR/ABL1, p210 Result see interpretation
== END 2019-07-14 02:09 ==
PROVIDERS: PCP Family Medicine; Visit Provider Internal Medicine Hematology & Oncology
DX: C92.10 Chronic myeloid leukemia, BCR/ABL-positive, not having achieved remission (principal)
CPT/HCPCS: 36415; 80053; 81206; 85025

== ENCOUNTER 2019-08-16 11:06 | Emergency (ER) | payer MEDICARE, OTHER, SELFPAY ==
[2019-08-16] VITALS (53 sets, daily range): BP systolic 77–129; BP diastolic 31–94; PULSE 138–165; RESP 2–30; TEMP 33–36.6; O2SAT 82–99
--- NOTE | 2019-08-16 11:39 | DI.RAD_ITS ---
EXAM: XR PORTABLE CHEST AP INDICATION: SOB. COMPARISON: CHEST 2 VIEWS PA,LAT from 11/30/2015 THORACIC SPINE from 02/07/2018 TECHNIQUE: 2D digital imaging was performed. FINDINGS: The heart size is at the upper limits of normal. There is prominence of the pulmonary vasculature. Infiltrates are seen in the lower lobes bilaterally. The left costophrenic angle is obscured and a s mall pleural effusion cannot be excluded. No pneumothorax is identified. There is a mild right conv ex scoliosis of the thoracic spine. Degenerative changes are seen in the shoulders bilaterally. IMPRESSION: Prominence of the pulmonary vasculature and left pleural effusion. This may represent pulmonary bre a. Bilateral basilar infiltrates. This may represent atelectasis or pneumonia.
[2019-08-16] MEDS: diphenhydrAMINE 50 MG/ML VIAL (11:46)
[2019-08-16] MEDS: methylPREDNISolone SUCC 125 MG VIAL (11:46)
[2019-08-16] MEDS: FAMOTIDINE 20 MG/50 ML BAG (11:47)
[2019-08-16 11:51] LABS: BE (Venous) -1.8 mmol/L (-3-3); HCO3 (Venous) 24 mmol/L (22-28); O2 Sat (Venous) 38 % (70-80); TCO2 (Venous) 23 mmol/L (22-29); pCO2 (Venous) 46 mm/Hg (34-47); pH (Venous) 7.33 (7.35-7.45); pO2 (Venous) 25 mm/Hg (28-44)
[2019-08-16 11:53] LABS: Lactate 1.7 mmol/L (0.6-1.4)
[2019-08-16] MEDS: Ondansetron 4 MG/2 ML VIAL (11:55)
--- NOTE | 2019-08-16 11:56 | ED.GENADUL_ITS ---
Discharge Plan Disposition Patient Disposition: [facility] Condition: Critical Discharge Details Chief Complaint: SOB Clinical Impression: Pleural effusion, Tachycardia, Breath shortness Primary Care Provider: Tana Adler ED Provider: John Adkins Home Meds and New Rx's Prescriptions: No Action duloxetine 60 mg capsule,delayed release(DR/EC) 60 mg PO DAILY Qty: 90 RF: 11 fluticasone propionate 50 mcg/actuation spray,suspension 1 spray NS BID PRNRF: 0 multivitamin 1 EACH tablet 1 ea PO DAILY RF: 0 calcium carbonate-vitamin D3 [Caltrate with Vitamin D3] 1 EACH tablet 1 ea PO BID RF: 0 potassium chloride 10 mEq capsule, extended release 10 meq PO BID Qty: 180 RF: 12 omeprazole 40 mg capsule,delayed release(DR/EC) 40 mg PO DAILY Qty: 90 RF: 4 estradiol [Vagifem] 10 mcg tablet 10 mcg VG TWICE A WEEK Qty: 24 RF: 4 diclofenac sodium 1 % gel 4 gm TP QID PRN (Reason: neck pain) 6 Days Qty: 100 RF: 11 Shingrix Adjuvant Component-PF Suspension 1 ml IM ONCE Qty: 0.5 RF: 1 acetaminophen 500 mg tablet 500 mg PO Q6H PRN (Reason: pain) Qty: 60 RF: 0 ibuprofen 600 mg tablet 600 mg PO TID PRN (Reason: pain) Qty: 60 RF: 0 triamcinolone acetonide 0.1 % cream 1 applic TP BID PRNRF: 0 Medical Decision Making This is a 79-year-old female with a past medical history of previous leukemia which is been in remission for a few years, mild asthma for which she takes no breathing treatments, mild reflux, hypertension high cholesterol who also has atrophic vaginitis and gets intravaginal estrogen pills. She presents today for evaluation of notable shortness of breath for the last 2 to 3 days, is mild 24 to 48 hours ago however over the last 24 hours it became significantly worse with severe shortness of breath even with sitting upright or trying to move. She denies any red flags of long trips surgeries or procedures. She does have a family history of blood clots. She does admit to mild fevers nightly, but none during the day. Cough is nonproductive. Exam demonstrates notably dyspneic patient, oxygen saturations in the are in the mid 80s. Pulse is in the 160s. EKG shows sinus tachycardia. Bedside ultrasound although limited does show evidence of notable distention of the right ventricle and right atria, as well as left ventricle for that matter. Reduced ejection fraction is present, elevated heart rate. No pericardial effusion. IVC measurement demonstrates an IVC 3 cm which transitions to 2.8 cm on inspiration. Differential is broad, ACS potential but I feel that there likely is heart strain potentially secondary to pulmonary embolism. Recurrence of her leukemia with her night sweats is certainly also on the differential. Pneumonia and bronchitis is of concern to. We will give a 250 cc bolus and reassess for change, will give a breathing treatment, started on supplemental oxygen get a CT for further assessment. I am going to hold off on cardiac rate management with medication at this time for concern that this may potentially lead to worsening blood pressures. 1:[address] scan demonstrates notable evidence of large pleural effusions, worse on the right than the left. There is also evidence of pulmonary edema. No evidence of pulmonary embolism. Laboratory work-up shows negative influenza testing, no white count, normal hemoglobin. Electrolytes stable. Lactate only 1.7. Troponin is normal, proBNP only slightly elevated at 3800, TSH normal. With the notable pleural effusion I feel this is likely the cause of her shortness of breath. Thoracentesis was performed after speaking with the surgeon Dr. Whalen. I was able to get 800 cc of clear yellow pleural fluid off. Concerned that this may certainly be a malignant effusion with a history of leukemia. The patient has a notable subjective improvement of her symptoms after this. Oxygenation improved. She still remains tachycardic. We will add 2.5 mg of IV metoprolol. We will admit the patient. 2:57 PM This patient's work of breathing is notably improved, her oxygenation still remains tenuous. Oxygen saturations are in the mid 90s currently. She is on high flow on 4 L. The patient feels much better at this time. Unfortunately the patient's heart rate did not improve with this at all. Blood pressure remained unchanged. Although she is feeling much better subjectively. The patient was given 2.5 mg metoprolol, however this did not change her heart rate. It did bring her blood pressure down notably to the high 90s. We decided to hold off on any additional rate control. The patient's laboratory work-up is otherwise unremarkable. We did speak with hospitalist here, and unfortunately we have no ICU beds that are currently available. We have contacted [facility] and I spoke with the resident classification and treatment director Dr. Hung, as well as the fellow Dr. Mckenzie, he agrees with the assessment and plan. Additionally they agreed on holding off any additional rate control at this time, and agreed to hold off on adenosine. Patient will be transferred to the ICU. I have extensively reviewed the treatment plan with the patient. I have addressed all patient concerns at this time. I have also discussed the plan with the admitting physician and they agree with the current assessment and plan and have agreed to assume responsibility for the patient. All parties demonstrate verbal understanding and agreement with our assessment and plan at this time. At time of transfer the patient was reassessed and continued to show no signs requiring requiring intubation, or rapidly declining mental status. The patient is appropriate for transfer to the higher level of care. For transport. EKG 11: 14 Rate 163, TN 90, QTc 425, QRS 92, sinus tachycardia, no significant ST elevation or depression, does appear to be inverted T waves in V5 and V6, no evidence of STEMI. Exam type: diagnostic Indication for exam: Tachycardia, fluid assessment Views obtained and pictures saved: subxiphoid view of the IVC as it enters the right atrium on inspiration and exhalation. Diameter was measured approximately 2 cm from the atrial caval junction. Findings and interpretations: all views were adequate. The IVC measures 3 cm and collapses <50% indicating the CVP is estimated at >20 mmhg. >20 CVP = >2.5cm with no change on inspiration The patient tolerated the procedure well and there were no complications. FINDINGS: The heart size is at the upper limits of normal. There is prominence of the pulmonary vasculature. Infiltrates are seen in the lower lobes bilaterally. The left costophrenic angle is obscured and a small pleural effusion cannot be excluded. No pneumothorax is identified. There is a mild right convex scoliosis of the thoracic spine. Degenerative changes are seen in the shoulders bilaterally. IMPRESSION: Prominence of the pulmonary vasculature and left pleural effusion. This may represent pulmonary edema. Bilateral basilar infiltrates. This may represent atelectasis or pneumonia. IMPRESSION: 1. No evidence of pulmonary embolism. 2. Cardiomegaly. Bilateral pleural effusions. Findings suspicious for congestive heart failure. 3. Bilateral basilar pulmonary infiltrates. This may represent pulmonary edema or pneumonia. 4. Findings were discussed with the Emergency Department on the date of the examination. 5. Indeterminate hypodensities in the liver. Follow-up as clinically appropriate. Incidental finding. FINDINGS: The heart size and pulmonary vasculature are stable. The bilateral basilar infiltrates are unchanged. There is a persistent left pleural effusion. No pneumothorax is identified. There is a right convex scoliosis of the thoracic spine. IMPRESSION: No evidence of a pneumothorax following thoracentesis. HPI General Date/Time Provider Initiated Documentation: 08/16/19 11:14 . HPI Narrative: This is a 79-year-old female who has a past medical history of previous leukemia for which she has been in remission for few years, asthma, hypertension, previous high cholesterol no longer on cholesterol medicines, who presents today for evaluation of cough, shortness of breath over the last 2 to 3 days that is notably worsened over the last 24 hours. Cough is relatively nonproductive. Shortness of breath was only mild before, however yesterday became severe with even sitting up or walking at all. She denies any previous DVTs or blood clots, but does have a family history of it. She denies long trips surgeries or procedures. She does admit to some mild achiness in her legs bilaterally. She denies hemoptysis, vomiting or diarrhea. She admits to mild chest achiness but no significant chest pain. She does admit to a chest tightness when she does try to breathe though. She denies any history of symptoms like this in the past. She denies previous cardiac disease. She denies any other complaints at this time. Of note she does have an IV contrast allergy that occurred 40 years ago and all she had was hives, no angioedema or difficulty breathing. Related Data Home Medications Medication Instructions Recorded Confirmed calcium carbonate-vitamin D3 1 ea PO BID 11/14/12 08/16/19 [Caltrate with Vitamin D3] multivitamin 1 ea PO DAILY 11/14/12 08/16/19 potassium chloride 10 mEq 10 meq PO BID #180 tab 09/15/18 08/16/19 capsule,extended release omeprazole 40 mg capsule,delayed 40 mg PO DAILY #90 tab-cap 10/24/18 08/16/19 release duloxetine 60 mg capsule,delayed 60 mg PO DAILY #90 tab-cap 04/30/19 02/05/20 release estradiol 10 mcg vaginal tablet 10 mcg VG TWICE A WEEK #24 tab-cap 12/15/18 08/16/19 acetaminophen 500 mg PO Q6H PRN #60 tab 02/09/19 08/16/19 ibuprofen 600 mg PO TID PRN #60 tab 02/09/19 08/16/19 diclofenac sodium 1 % topical gel 4 gm TP QID PRN 6 Days #100 gm 04/12/19 08/16/19 fluticasone propionate 50 1 spray NS BID PRN gm 04/25/19 08/16/19 mcg/actuation nasal spray,suspension adjuvant AS01B (PF)vial 1 of 2 1 ml IM ONCE #0.5 ml 07/25/19 08/16/19 triamcinolone acetonide 1 applic TP BID PRN 08/16/19 08/16/19 Previous Rx's Medication Instructions Recorded potassium chloride 10 mEq 10 meq PO BID #180 tab 09/15/18 capsule,extended release omeprazole 40 mg capsule,delayed 40 mg PO DAILY #90 tab-cap 10/24/18 release duloxetine 60 mg capsule,delayed 60 mg PO DAILY #90 tab-cap 11/08/18 release estradiol 10 mcg vaginal tablet 10 mcg VG TWICE A WEEK #24 tab-cap 12/15/18 acetaminophen 500 mg PO Q6H PRN #60 tab 02/09/19 ibuprofen 600 mg PO TID PRN #60 tab 02/09/19 diclofenac sodium 1 % topical gel 4 gm TP QID PRN 6 Days #100 gm 04/12/19 adjuvant AS01B (PF)vial 1 of 2 1 ml IM ONCE #0.5 ml 07/25/19 Allergies Allergy/AdvReac Type Severity Reaction Status Date / Time iodine Allergy Intermediate hives, IV Verified 08/16/19 12:24 black flies Allergy Severe Hives/swell Uncoded 08/16/19 12:24 ing General Stated Complaint: SOB DEANNA: 2 Review of Systems All systems reviewed & are unremarkable except as noted in HPI and below PFSH Medical History (Updated 08/16/19 @ 15:20 by John Adkins DO) Abnormal ECG (Resolved) 02/23/13 Asthma 02/02/19: Pt denies having asthma. 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 -BR Facet arthropathy, lumbar (Resolved 08/07/14) Gastroesophageal reflux disease with esophagitis (Chronic) H/O sigmoidoscopy (Resolved) 07/12/00 History of infection of total joint prosthesis of knee Hyperlipidemia (Chronic 11/15/12) Impaired fasting glucose (Resolved 05/07/14) Impaired renal function disorder (Chronic) Knee pain (Resolved 06/10/03) S/P knee replacement Leg edema, left (Chronic 12/02/17) Lumbar disc disease with radiculopathy (Chronic 11/19/14) fusion planned 11/23 Lung nodule seen on imaging study (Resolved 03/27/14) negative CT 04/2014 Mass of wrist (Resolved) 02/02/19: Skin tag to left wrist that was removed, per pt. -BR Meniere disease (Resolved) occasional episodes Menieres disease (Inactive) Multinodular goiter (Chronic 04/11/14) calcified mass - bx recommmended 04/24 Nausea & vomiting (Resolved) Neuropathy (Chronic 06/24/15) Other diseases of stomach and duodenum (Resolved 09/29/17) 09/29/17-FOCAL INTESTINAL METAPLASIA;DR. CEBALLOS Other specified arthropathy, other specified sites (Resolved) 08/07/14 facet arthropathy, lumbar Plantar fasciitis (Resolved) 03/18/10 Plantar fasciitis (Chronic 03/18/10) PMR (polymyalgia rheumatica) (Resolved) 06/10/07 on prednisone Polymyalgia rheumatica (Inactive 06/10/07) Pyogenic arthritis of knee (Resolved) 12/13/16 due to unspecified organism, unspecified unilaterally Sepsis (Resolved) Shoulder pain (Resolved 06/10/03) right shoulder bursitis; AC DJD; Left MRI:full thickness right rotator cuff tear Thyroid nodule (Inactive 09/30/17) Tubular adenoma of colon (Chronic 06/28/14) Weakness (Inactive) Surgical History (Updated 07/25/19 @ 05:51 by Tana Adler MD, DC) Appendectomy Arthroplasty of knee B/L BACK SURGERY (~11/2014) Rods placed Carpal tunnel syndrome of right wrist (Resolved 02/10/19) Cholecystectomy (~1985) Colonoscopy - MAC (09/29/17) 05/28/14 EGD - MAC (09/29/17) H/O arthroscopy of knee (Resolved) B/L H/O surgical procedure (Resolved) A. ROTATOR CUFF SURGERY B. APPENDECTOMY C. HYSTERECTOMY D. CHOLECYSTECTOMY E. BILATERAL KNEE REPLACEMENT F. BACK SURGERY Hysterectomy, Laproscopic (~1972) Replacement of total knee joint B/L, LEFT WITH REVISION 04/2014 Rotator Cuff Repair (~2004) (Right) S/P appendectomy (Resolved) S/P cholecystectomy (Resolved) 07/12/85 S/P laparoscopic hysterectomy (Resolved) S/P right rotator cuff repair (Resolved) 07/12/04 S/P tonsillectomy and adenoidectomy (Resolved) S/P total knee replacement (Resolved) LEFT Sigmoidoscopy (~2000) Status post appendectomy (Resolved) Status post cholecystectomy (Resolved) Status post laparoscopic hysterectomy (Resolved) Status post rotator cuff repair (Resolved) Status post tonsillectomy and adenoidectomy (Resolved) Status post total bilateral knee replacement (Inactive) Status post total knee replacement (Resolved) LEFT Tonsillectomy and adenoidectomy Family History (Updated 02/02/19 @ 13:41 by Fawn Andrew) Mother , 91 Dementia Cancer 02/02/19: Pt denies cancer in mother. -BR Father , [place] at age 57. Heart disease [place] Hyperlipidemia Sister No problems noted. Brother No problems noted. Maternal Grandfather No problems noted. Paternal Grandfather No problems noted. Maternal Grandmother Neoplasm BREAST Grandmother No problems noted. Son No problems noted. Daughter No problems noted. Social History Smoking/Tobacco Use Status: Never Alcohol Intake: current Alcohol Intake frequency: a few times a week Alcohol type: wine Drug use: Never Substance use type: does not use Details: last night wine 1 glass Caregiver/Support person: No Household members: spouse Housing: house Pets and animals: Yes Pets and animals: dog(s) Sexually active: Yes Do you think of yourself as: straight/heterosexual Current gender identity: female What is your relationship status?: How often do you talk on the phone with friends or family?: three or more times per week How often do you get together with friends or relatives?: decline to answer How often do you attend alevism or mormonism services?: decline to answer Do you belong to any clubs or organized social groups?: yes Panel score (0-1 are the most socially isolated patients): 3 What type of physical activity do you participate in: none Frequency: does not exercise Leann/Restorationist: Roman Catholic Special leann needs: No Do you feel safe at home: Yes Do you feel safe in your relationship?: Yes Exam Narrative Exam Narrative: 1.Const: Well-nourished, Well-developed, appearing stated age 2.Eyes: PERRL, no conjunctival injection, and symmetrical lids. 3.ENT: Atraumatic external nose and ears. Moist MM. Neck: Symmetric, trachea midline, No thyromegaly. 4.CVS: +S1/S2, No murmurs or gallops. Peripheral pulses 2+ and equal in all extremities. Brisk capillary refill in all extremities. 5.RESP: Notable respiratory distress, shortness of breath with the slightest exertion. However she is able to speak in full sentences well. Clear to auscultation bilaterally. No wheezes rales or rhonchi 6.GI: Soft, Nontender/Nondistended, No hepatosplenomegaly. No guarding or rebound. 7.MSK: Normocephalic/Atraumatic, Extremities w/o deformity or ttp No cyanosis or clubbing, Normal movement of all extremities, trace +1 pitting edema bilaterally. No calf tenderness. 8.Skin: Warm, Dry. No rashes or lesions. 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 Sensation grossly intact, no focal neurologic deficits. 10.Psych: (AAO) x3. Appropriate mood and affect Course Vital Signs Vital signs: Vital Signs Temperature 36.6 C 08/16/19 11:13 Pulse 161 H 08/16/19 11:13 Respiratory Rate 29 H 08/16/19 11:13 Blood Pressure 119/87 08/16/19 11:13 Pulse Oximetry 93 L 08/16/19 11:13 Temperature 36.6 C 08/16/19 11:13 Temperature Source Skin 08/16/19 11:13 Pulse 161 H 08/16/19 11:13 Respiratory Rate 25 H 08/16/19 11:24 Respiratory Effort 08/16/19 11:24 Respiratory Depth Shallow 08/16/19 11:24 Respiratory Pattern Tachypnea 08/16/19 11:24 Blood Pressure 119/87 08/16/19 11:13 Blood Pressure Position Sitting 08/16/19 11:13 Pulse Oximetry 93 L 08/16/19 11:13 Oxygen Delivery Method Room Air 08/16/19 11:13 Oxygen Flow Rate 0 08/16/19 11:13 Lab/Test Results Lab/Test Results: 08/16/19 11:34 Nasopharynx Influenza Types A,B Antigen - Pending 08/16/19 11:30 Blood Blood Culture - Pending 08/16/19 11:30 Blood Blood Culture - Pending Laboratory Tests Range/Units 08/16/19 08/16/19 11:23 11:23 VBG pH (7.35-7.45) 7.33 L VBG pCO2 (34-47) mm/Hg 46 VBG pO2 (28-44) mm/Hg 25 L VBG HCO3 (22-28) mmol/L 24 VBG Total CO2 (22-29) mmol/L 23 VBG O2 Saturation (70-80) % 38 L VBG Base Excess (-3-3) mmol/L -1.8 Lactate (0.6-1.4) mmol/L 1.7 H Procedures Other Description: Thoracentesis Procedure: Thoracentesis Indication: Pleural Effusion A time-out was completed verifying correct patient, procedure, site, positioning, and special equipment if applicable. The patient?s right side was prepped and draped in a sterile manner after the appropriate infiltration level was confirmed by ultrasound. 1% lidocaine was used anesthetize the surrounding skin. A finder needle was then used to locate fluid and clear yellow fluid was obtained. A 10-blade scalpel used to make the incision. The thoracentesis catheter was then threaded without difficulty. The patient had 800 mL of clear yellow fluid removed. A post-procedure chest x-ray was ordered and the fluid will be sent for several studies. Estimated Blood Loss: 1ml The patient tolerated the procedure well and there were no complications.
[2019-08-16 12:02] LABS: Abs Immature Grans 0.01 k/cumm (0.0-0.09); Absolute Basophil Count 0.04 k/cumm (0.0-0.2); Absolute Eosinophil Count 0.15 k/cumm (0.0-0.7); Absolute Lymphocyte Count 1.28 k/cumm (1.2-3.4); Absolute Monocyte Count 0.55 k/cumm (0.11-0.7); Absolute Neutrophil Count 6.57 k/cumm (1.2-6.7); Basophils % 0.5; Eosinophils % 1.7; HCT 41.4 % (36.0-46.0); Immature Grans % 0.1 %; Lymphocytes % 14.9; Mean Corp. HGB Concentration 31.4 g/dL (32.0-36.0); Mean Corpuscular Hemoglobin 28.7 pg (27.0-33.0); Mean Corpuscular Volume 91.4 fL (80-95); Mean Platelet Volume 11.7 fL (8.0-11.0); Monocytes % 6.4; Neutrophils % 76.4; Platelet Count 227 x1000/uL (130-400); RBC 4.53 m/cumm (4.00-5.20); RBC Distribution Width 14.4 % (11.7-14.6)
[2019-08-16] MEDS: Normal Saline 500 ML IV (12:04)
--- NOTE | 2019-08-16 12:13 | DI.CT_ITS ---
EXAM: CT CHEST PE CTA CLINICAL HISTORY: RIGHT HEART STRAIN, HYPOXIC, CP. TECHNIQUE: Imaging Protocol: Axial CT angiography was performed with multi-slice acquisition and mu lti-planar and/or 3D reconstructions. CONTRAST MATERIAL: Intravenous: Omnipaque 350 Contrast volume:100 mL COMPARISON: ABD PELVIS WITH CONTRAST from 08/19/2009 XR PORTABLE CHEST AP from 08/16/2019 FINDINGS: Pulmonary Arteries: No evidence of filling defect to suggest pulmonary emboli. Tracheobronchial tree: Patent where visualized. Mediastinum and Cristin: No dominant adenopathy or fluid collection. Pulmonary parenchyma: Bilateral basilar infiltrates. No architectural distortion. Pleura: Moderately large bilateral pleural effusions. No pneumothorax. Heart: Moderate cardiomegaly. Mild coronary artery calcification. No significant pericardial effusi on. No evidence of right heart strain. Aorta: Thoracic aorta non-dilated. Upper abdomen: Hypodensities in the liver, which are indeterminate. Bones: Degenerative changes. IMPRESSION: 1. No evidence of pulmonary embolism. 2. Cardiomegaly. Bilateral pleural effusions. Findings suspicious for congestive heart failure. 3. Bilateral basilar pulmonary infiltrates. This may represent pulmonary edema or pneumonia. 4. Findings were discussed with the Emergency Department on the date of the examination. 5. Indeterminate hypodensities in the liver. Follow-up as clinically appropriate. Incidental finding . DATA REPOSITORY: All CT scans at this facility are submitted to the National Radiology Data Registry (NRDR) Dose Index Registry (DIR) with the [employer] (ACR). RADIATION OPTIMIZATION: All CT scans at this facility use at least one of these dose optimization te chniques: automated exposure control; mA and/or kV adjustment per patient size (includes targeted exa ms where dose is matched to clinical indication); or iterative reconstruction.
[2019-08-16 12:16] LABS: INR 1.1 (0.9-1.1); PTT Activated 26.1 sec (21.0-31.4); Prothrombin Time 11.2 sec (9.3-11.0)
[2019-08-16 12:17] LABS: ALT 20 U/L (14-59); AST 22 U/L (15-37); Albumin 3.8 g/dL (3.4-5.0); Alkaline Phosphatase 67 U/L (46-116); Anion Gap 11.2 mmol/L (3-11); BUN 19 mg/dL (7-18); Bilirubin, Total 0.8 mg/dL (0.2-1.0); CO2 24.8 mmol/L (21.0-32.0); CREATININE 0.98 mg/dL (0.55-1.02); Calcium 9.1 mg/dL (8.5-10.1); Chloride 106 mmol/L (98-107); Estimated GFR 54.75 (mL/min/1.73m2); Glucose 196 mg/dL (74-106); NT-proBNP 3849 pg/mL (<300); Potassium 3.8 mmol/L (3.5-5.1); Sodium 142 mmol/L (136-145); Total Protein 7.3 g/dL (6.4-8.2); Troponin I < 0.05 ng/Ml (<0.06)
[2019-08-16] MEDS: Omnipaque 350 MG/ML 100 ML BTL IJ (12:19)
[2019-08-16] MEDS: Normal Saline - Diluent 50 ML VIAL IV (12:20)
[2019-08-16] MEDS: Albuterol/Ipratropium 3 ML UPD VIAL UPD (12:45)
[2019-08-16] MEDS: Metoprolol 5 MG/5 ML VIAL 2.5 MG IVP (13:50)
[2019-08-16 14:00] LABS: Source PLEURAL
[2019-08-16 14:01] LABS: Clarity CLOUDY; Nucleated Cells 477 /MM3 (0-0)
--- NOTE | 2019-08-16 14:02 | DI.RAD_ITS ---
EXAM: XR PORTABLE CHEST AP INDICATION: POST RIGHT-SIDED THORACENTESIS. COMPARISON: XR PORTABLE CHEST AP from 08/16/2019 TECHNIQUE: 2D digital imaging was performed. FINDINGS: The heart size and pulmonary vasculature are stable. The bilateral basilar infiltrates are unchanged . There is a persistent left pleural effusion. No pneumothorax is identified. There is a right con vex scoliosis of the thoracic spine. IMPRESSION: No evidence of a pneumothorax following thoracentesis.
[2019-08-16 14:05] LABS: Mononuclear Cells 89 % (0-0); Other Cells 2 0 (0-0); Polynuclear Cells 9 % (0-0)
[2019-08-16 14:58] LABS: Troponin I < 0.05 ng/Ml (<0.06)
[2019-08-16 22:17] LABS: Glucose, Fluid 169 mg/dL (See Note)
[2019-08-17 16:55] LABS: Amylase, BF 15 U/L; Fluid Type PLEURAL
[2019-08-17 16:56] LABS: Fluid Type PLEURAL
== END 2019-08-16 15:42 | disposition short-term general hospital (02) ==
PROVIDERS: Emergency Provider Student in an Organized Health Care Education/Training Program; PCP Family Medicine
DX: J90 Pleural effusion, not elsewhere classified (principal); R00.0 Tachycardia, unspecified; R06.02 Shortness of breath; J45.909 Unspecified asthma, uncomplicated; I10 Essential (primary) hypertension
CPT/HCPCS: 32554; 36410; 36415; 71275; 80053; 82805; 87040; 87449; 89051; 93005; 94640; 96374; 96375; 99285; 71045; 81373; 82150; 83605; 83880; 84157; 84443; 84484; 85025; 85610; 85730; 87070; 87205; 93010; J1200; J2405; J2930; J3490; J7620

== ENCOUNTER 2019-09-04 11:27 | Observation (INO) | payer MEDICARE, OTHER, SELFPAY ==
[2019-09-04] VITALS (105 sets, daily range): BP systolic 63–111; BP diastolic 21–74; PULSE 60–154; RESP 12–30; TEMP 36.1–36.8; O2SAT 88–100
--- NOTE | 2019-09-04 11:45 | DI.RAD_ITS ---
EXAM: XR PORTABLE CHEST AP CLINICAL HISTORY: SOB, CP, afib RVR, recent pleural effusions TECHNIQUE: COMPARISON: XR PORTABLE CHEST AP from 08/16/2019 FINDINGS: Examination is compared to prior film of August 16. Previously noted left pleural effusion appear s smaller or absent on today's frontal film. Mild cardiomegaly noted. Lungs are grossly clear as vi sualized. IMPRESSION: No evidence of acute process. PA and lateral views would be more helpful in evaluating any possible residual pleural effusion.
[2019-09-04 12:00] LABS: Abs Immature Grans 0.01 k/cumm (0.0-0.09); Absolute Basophil Count 0.02 k/cumm (0.0-0.2); Absolute Eosinophil Count 0.12 k/cumm (0.0-0.7); Absolute Lymphocyte Count 1.46 k/cumm (1.2-3.4); Absolute Monocyte Count 0.45 k/cumm (0.11-0.7); Absolute Neutrophil Count 3.66 k/cumm (1.2-6.7); Basophils % 0.3; Eosinophils % 2.1; HCT 41.7 % (36.0-46.0); HGB 13.7 g/dL (12.0-15.5); Immature Grans % 0.2 %; Lymphocytes % 25.5; Mean Corp. HGB Concentration 32.9 g/dL (32.0-36.0); Mean Corpuscular Hemoglobin 29.1 pg (27.0-33.0); Mean Corpuscular Volume 88.7 fL (80-95); Mean Platelet Volume 11.4 fL (8.0-11.0); Monocytes % 7.9; Platelet Count 227 x1000/uL (130-400); RBC Distribution Width 13.9 % (11.7-14.6); White Blood Cell Count 5.72 k/cumm (4.4-10.8)
[2019-09-04] MEDS: Normal Saline 1,000 ML 30 ML IV (12:00)
[2019-09-04 12:20] LABS: PTT Activated 25.5 sec (21.0-31.4); Prothrombin Time 10.4 sec (9.3-11.0)
[2019-09-04 12:21] LABS: ALT 18 U/L (14-59); AST 19 U/L (15-37); Albumin 3.6 g/dL (3.4-5.0); Alkaline Phosphatase 58 U/L (46-116); Anion Gap 10.6 mmol/L (3-11); BUN 36 mg/dL (7-18); Bilirubin, Total 0.4 mg/dL (0.2-1.0); CO2 25.4 mmol/L (21.0-32.0); Chloride 107 mmol/L (98-107); Estimated GFR 47.91 (mL/min/1.73m2); Glucose 195 mg/dL (74-106); NT-proBNP 4834 pg/mL (<300); Potassium 4.3 mmol/L (3.5-5.1); Sodium 143 mmol/L (136-145); Total Protein 7.4 g/dL (6.4-8.2)
[2019-09-04 12:29] LABS: Troponin I < 0.05 ng/Ml (<0.06)
[2019-09-04] MEDS: Propofol 200 MG/20 ML VIAL 70 MG IVP (12:36)
--- NOTE | 2019-09-04 12:41 | ED.GENADUL_ITS ---
Discharge Plan Disposition Patient Disposition: [facility] INPATIENT Condition: Improving Discharge Details Chief Complaint: Dizzy/Sync Clinical Impression: Atrial fibrillation with rapid ventricular response, Acute hypotension Admit Date/Time: 09/04/19 12:56 Admit Provider: Juan Pablo Rosario Attending Provider: Juan Pablo Rosario Primary Care Provider: Tana Adler ED Provider: John Adkins Discharge Data Discharge Date/Time-TO BE ENTERED AT DEPARTURE: 09/04/19 14:33 Medical Decision Making Upon my evaluation, this patient had a high probability of imminent or life- threatening deterioration, which required my direct attention, intervention, and personal management. I have personally provided 45 minutes of critical care time exclusive of time spent on separately billable procedures. Time includes review of laboratory data, radiology results, discussion with consultants, and monitoring for potential decompensation. Interventions were performed as documented. Patient has history of atrial fibrillation new onset, she was seen here over 2 weeks ago, notable pleural effusions which were drained, eventually transferred to [facility] with continued A. fib with RVR unresponsive to metoprolol, esmolol drip, or digoxin. She was eventually cardioverted there 2 weeks ago. Started on Eliquis. 7 days ago her home metoprolol dose was decreased from 50 to 25 mg. Last night she became dizzy palpitations mild central chest pain. On arrival to the ED heart rate in the 180s, pressure low. Known EF of 35%. Bedside ultrasound showed no pericardial effusion, pleural effusion, or other abnormalities. Discussed case with Dr. juares, decision was made for cardioversion. Successfully cardioverted with 50 mg of propofol and 120 J synchronized. Return to sinus rhythm. Patient feeling better, blood pressure soft. Given 250 cc bolus. Discussed case with hospitalist Dr. Rosario, I have extensively reviewed the treatment plan with the patient. I have addressed all patient concerns at this time. I have also discussed the plan with the admitting physician and they agree with the current assessment and plan and have agreed to assume responsibility for the patient. All parties demonstrate verbal understanding and agreement with our assessment and plan at this time. Time out was taken to identify the correct patient, procedure, and site. Risks and benefits were discussed with the patient and consent was obtained. The cardioversion pads are placed in the front to back orientation overlying the heart. After appropriate analgesia and anesthesia are obtained, the defibrillator is synchronized to the patient's heart rhythm. 120 J of energy are delivered and the patient's rhythm converted to normal sinus. The patient tolerated the procedure. There were no complications. A post cardioversion EKG is obtained which shows normal sinus rhythm FINDINGS: Examination is compared to prior film of August 16. Previously noted left pleural effusion appears smaller or absent on today's frontal film. Mild cardiomegaly noted. Lungs are grossly clear as visualized. IMPRESSION: No evidence of acute process. PA and lateral views would be more helpful in evaluating any possible residual pleural effusion. Ordered By: John Adkins DO EKG 11: 34 Rate 161, atrial fibrillation with rapid ventricular response, no significant ST elevations or depressions, no evidence of STEMI. EKG 12: 46 Rate 104, sinus tachycardia, no significant ST elevations or depressions, inverted T wave is present in V1. Sinus rhythm post cardioversion. HPI General Date/Time Provider Initiated Documentation: 09/04/19 11:29 . HPI Narrative: Pleasant 79-year-old female who presents for palpitations and lightheadedness. 3 weeks ago I personally saw the patient here in the ED, she had 2 very large pleural effusions, 1 of which was drained, persistent A. fib with a heart rate in the 150s unresponsive to metoprolol, she was eventually transferred to [facility] where she failed metoprolol secondary to notable drops in pressure, esmolol drip, digoxin, eventually requiring subsequent electrical cardioversion which she handled very well. She was started on metoprolol at home, 7 days ago she had her metoprolol dose cut from 50 mg to 25 mg. She has been taking Eliquis daily as directed without missing any doses. She presents today for evaluation of mild chest pain that occurred last night when she was standing up, in association with mild lightheadedness. She denies any significant shortness of breath fever, chills, significant crushing chest pain, especially in comparison with her last visit. She denies any vomiting or diarrhea and has been taking all of her medications as directed. No other complaints at this time. No other modifying factors. Related Data Home Medications Medication Instructions Recorded Confirmed calcium carbonate-vitamin D3 1 ea PO DAILY 11/14/12 09/04/19 [Caltrate with Vitamin D3] multivitamin 1 ea PO DAILY 11/14/12 09/04/19 omeprazole 40 mg capsule,delayed 40 mg PO DAILY #90 tab-cap 10/24/18 09/04/19 release duloxetine 60 mg capsule,delayed 60 mg PO DAILY #90 tab-cap 11/08/18 09/04/19 release estradiol 10 mcg vaginal tablet 10 mcg VG TWICE A WEEK #24 tab-cap 12/15/18 09/04/19 acetaminophen 500 mg PO Q6H PRN #60 tab 02/09/19 09/04/19 fluticasone propionate 50 1 spray NS BID PRN gm 04/25/19 09/04/19 mcg/actuation nasal spray,suspension adjuvant AS01B (PF)vial 1 of 2 1 ml IM ONCE #0.5 ml 07/25/19 08/28/19 triamcinolone acetonide 1 applic TP BID PRN 08/16/19 09/04/19 apixaban 5 mg tablet 5 mg PO BID 08/28/19 09/04/19 cetirizine 10 mg tablet 10 mg PO DAILY tab 08/28/19 09/04/19 furosemide 20 mg tablet 10 mg PO DAILY tab 08/28/19 09/04/19 lisinopril 5 mg tablet 5 mg PO DAILY 08/28/19 09/04/19 metoprolol succinate 25 mg 25 mg PO DAILY 08/28/19 09/04/19 tablet,extended release 24 hr Previous Rx's Medication Instructions Recorded omeprazole 40 mg capsule,delayed 40 mg PO DAILY #90 tab-cap 10/24/18 release duloxetine 60 mg capsule,delayed 60 mg PO DAILY #90 tab-cap 11/08/18 release estradiol 10 mcg vaginal tablet 10 mcg VG TWICE A WEEK #24 tab-cap 12/15/18 acetaminophen 500 mg PO Q6H PRN #60 tab 02/09/19 adjuvant AS01B (PF)vial 1 of 2 1 ml IM ONCE #0.5 ml 07/25/19 Allergies Allergy/AdvReac Type Severity Reaction Status Date / Time iodine Allergy Intermediate hives, IV Verified 09/04/19 13:11 black flies Allergy Severe Hives/swell Uncoded 09/04/19 13:11 ing General Stated Complaint: Dizzy/Sync DEANNA: 2 Review of Systems All systems reviewed & are unremarkable except as noted in HPI and below PFSH Medical History (Updated 09/04/19 @ 16:14 by John Adkins DO) Abnormal ECG (Resolved) 02/23/13 Asthma 02/02/19: Pt denies having asthma. 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 -BR Facet arthropathy, lumbar (Resolved 08/07/14) Gastroesophageal reflux disease with esophagitis (Chronic) H/O sigmoidoscopy (Resolved) 07/12/00 History of infection of total joint prosthesis of knee Hyperlipidemia (Chronic 11/15/12) Impaired fasting glucose (Resolved 05/07/14) Impaired renal function disorder (Chronic) Knee pain (Resolved 06/10/03) S/P knee replacement Leg edema, left (Chronic 12/02/17) Lumbar disc disease with radiculopathy (Chronic 11/19/14) fusion planned 11/23 Lung nodule seen on imaging study (Resolved 03/27/14) negative CT 04/2014 Mass of wrist (Resolved) 02/02/19: Skin tag to left wrist that was removed, per pt. -BR Meniere disease (Resolved) occasional episodes Menieres disease (Inactive) Multinodular goiter (Chronic 04/11/14) calcified mass - bx recommmended 04/24 Nausea & vomiting (Resolved) Neuropathy (Chronic 06/24/15) Other diseases of stomach and duodenum (Resolved 09/29/17) 09/29/17-FOCAL INTESTINAL METAPLASIA;DR. CEBALLOS Other specified arthropathy, other specified sites (Resolved) 08/07/14 facet arthropathy, lumbar Plantar fasciitis (Resolved) 03/18/10 Plantar fasciitis (Chronic 03/18/10) PMR (polymyalgia rheumatica) (Resolved) 06/10/07 on prednisone Polymyalgia rheumatica (Inactive 06/10/07) Pyogenic arthritis of knee (Resolved) 06/23/16 due to unspecified organism, unspecified unilaterally Sepsis (Resolved) Shoulder pain (Resolved 06/10/03) right shoulder bursitis; AC DJD; Left MRI:full thickness right rotator cuff tear Thyroid nodule (Inactive 09/30/17) Tubular adenoma of colon (Chronic 06/28/14) Weakness (Inactive) Surgical History (Updated 07/25/19 @ 05:51 by Tana Adler MD, DC) Appendectomy Arthroplasty of knee B/L BACK SURGERY (~11/2014) Rods placed Carpal tunnel syndrome of right wrist (Resolved 02/10/19) Cholecystectomy (~1985) Colonoscopy - MAC (09/29/17) 05/28/14 EGD - MAC (09/29/17) H/O arthroscopy of knee (Resolved) B/L H/O surgical procedure (Resolved) A. ROTATOR CUFF SURGERY B. APPENDECTOMY C. HYSTERECTOMY D. CHOLECYSTECTOMY E. BILATERAL KNEE REPLACEMENT F. BACK SURGERY Hysterectomy, Laproscopic (~1972) Replacement of total knee joint B/L, LEFT WITH REVISION 04/2014 Rotator Cuff Repair (~2004) (Right) S/P appendectomy (Resolved) S/P cholecystectomy (Resolved) 07/12/85 S/P laparoscopic hysterectomy (Resolved) S/P right rotator cuff repair (Resolved) 07/12/04 S/P tonsillectomy and adenoidectomy (Resolved) S/P total knee replacement (Resolved) LEFT Sigmoidoscopy (~2000) Status post appendectomy (Resolved) Status post cholecystectomy (Resolved) Status post laparoscopic hysterectomy (Resolved) Status post rotator cuff repair (Resolved) Status post tonsillectomy and adenoidectomy (Resolved) Status post total bilateral knee replacement (Inactive) Status post total knee replacement (Resolved) LEFT Tonsillectomy and adenoidectomy Family History (Updated 02/02/19 @ 13:41 by Fawn Andrew) Mother , 91 Dementia Cancer 02/02/19: Pt denies cancer in mother. -BR Father , [place] at age 57. Heart disease [place] Hyperlipidemia Sister No problems noted. Brother No problems noted. Maternal Grandfather No problems noted. Paternal Grandfather No problems noted. Maternal Grandmother Neoplasm BREAST Grandmother No problems noted. Son No problems noted. Daughter No problems noted. Social History Smoking/Tobacco Use Status: Never Alcohol Intake: current Alcohol Intake frequency: a few times a week Alcohol type: wine Drug use: Never Substance use type: does not use Details: last night wine 1 glass Caregiver/Support person: No Household members: spouse Housing: house Pets and animals: Yes Pets and animals: dog(s) Sexually active: Yes Do you think of yourself as: straight/heterosexual Current gender identity: female What is your relationship status?: How often do you talk on the phone with friends or family?: three or more times per week How often do you get together with friends or relatives?: decline to answer How often do you attend buddhist or gnosticism services?: decline to answer Do you belong to any clubs or organized social groups?: yes Panel score (0-1 are the most socially isolated patients): 3 What type of physical activity do you participate in: none Frequency: does not exercise Leann/Orthodoxy: Orthodox Special leann needs: No Do you feel safe at home: Yes Do you feel safe in your relationship?: Yes Exam Narrative Exam Narrative: 1.Const: Well-nourished, Well-developed, appearing stated age 2.Eyes: PERRL, no conjunctival injection, and symmetrical lids. 3.ENT: Atraumatic external nose and ears. Moist MM. Neck: Symmetric, trachea midline, No thyromegaly. 4.CVS: +S1/S2, No murmurs or gallops. Peripheral pulses 2+ and equal in all extremities. Brisk capillary refill in all extremities. 5.RESP: Unlabored respiratory effort. Clear to auscultation bilaterally. No wheezes rales or rhonchi 6.GI: Soft, Nontender/Nondistended, No hepatosplenomegaly. No guarding or rebound. 7.MSK: Normocephalic/Atraumatic, Extremities w/o deformity or ttp No cyanosis or clubbing, Normal movement of all extremities 8.Skin: Warm, Dry. No rashes or lesions. 9.Neuro: will call order clerk II-XII grossly intact. Sensation grossly intact, no focal neurologic deficits. 10.Psych: (AAO) x3. Appropriate mood and affect Course Vital Signs Vital signs: Vital Signs Temperature 36.1 C L 09/04/19 11:34 Pulse 148 H 09/04/19 11:34 Respiratory Rate 18 09/04/19 11:34 Blood Pressure 102/65 09/04/19 11:34 Pulse Oximetry 97 09/04/19 11:34 Temperature 36.1 C L 09/04/19 11:34 Temperature Source Skin 09/04/19 11:34 Pulse 84 09/04/19 12:16 Pulse 121 H 09/04/19 12:16 Respiratory Rate 16 09/04/19 12:16 Blood Pressure 111/72 09/04/19 12:16 Blood Pressure Mean 81 09/04/19 12:16 Blood Pressure Position Sitting 09/04/19 11:34 Pulse Oximetry 99 09/04/19 12:16 Respiratory End-tidal CO2 26 09/04/19 12:16 Oxygen Delivery Method Room Air 09/04/19 11:48 Oxygen Flow Rate 0 09/04/19 11:48 Lab/Test Results Lab/Test Results: Laboratory Tests Range/Units 09/04/19 09/04/19 09/04/19 11:35 11:35 11:35 WBC (4.4-10.8) k/cumm 5.72 RBC (4.00-5.20) m/cumm 4.70 Hgb (12.0-15.5) g/dL 13.7 Hct (36.0-46.0) % 41.7 MCV (80-95) fL 88.7 MCH (27.0-33.0) pg 29.1 MCHC (32.0-36.0) g/dL 32.9 RDW (11.7-14.6) % 13.9 Plt Count (130-400) x1000/uL 227 MPV (8.0-11.0) fL 11.4 H Immature Gran % % 0.2 Neutrophils % 64.0 Lymphocytes % 25.5 Monocytes % 7.9 Eosinophils % 2.1 Basophils % 0.3 Absolute Neutrophils (1.2-6.7) k/cumm 3.66 Absolute Lymphocytes (1.2-3.4) k/cumm 1.46 Absolute Monocytes (0.11-0.7) k/cumm 0.45 Absolute Eosinophils (0.0-0.7) k/cumm 0.12 Absolute Basophils (0.0-0.2) k/cumm 0.02 PT (9.3-11.0) sec 10.4 INR (0.9-1.1) 1.0 APTT (21.0-31.4) sec 25.5 Sodium (136-145) mmol/L 143 Potassium (3.5-5.1) mmol/L 4.3 Chloride (98-107) mmol/L 107 Carbon Dioxide (21.0-32.0) mmol/L 25.4 Anion Gap (3-11) mmol/L 10.6 BUN (7-18) mg/dL 36 H Creatinine (0.55-1.02) mg/dL 1.10 H Estimated GFR/1.73 m2 (mL/min/1.73m2) 47.91 Glucose (74-106) mg/dL 195 H Calcium (8.5-10.1) mg/dL 10.0 Total Bilirubin (0.2-1.0) mg/dL 0.4 AST (15-37) U/L 19 ALT (14-59) U/L 18 Alkaline Phosphatase (46-116) U/L 58 Troponin I (<0.06) ng/Ml < 0.05 NT-Pro-B Natriuret Pep (<300) pg/mL 4834 H Total Protein (6.4-8.2) g/dL 7.4 Albumin (3.4-5.0) g/dL 3.6 Procedures Other Description: Time out was taken to identify the correct patient, procedure, and site. Risks and benefits were discussed with the patient and consent was obtained. The cardioversion pads are placed in the front to back orientation overlying the heart. After appropriate analgesia and anesthesia are obtained with 50 mg of propofol, the defibrillator is synchronized to the patient's heart rhythm. 150 J of energy are delivered and the patient's rhythm converted to normal sinus. The patient tolerated the procedure. There were no complications. A post cardioversion EKG is obtained which shows normal sinus rhythm.
--- NOTE | 2019-09-04 12:42 | RESPIRATORY ---
RT called to ER for a cardioversion, sucking and Ambu bad hooked up pre procedure. At 12:34 pre-procedure: HR 105-136, SpO2 98% on 2L, RR 16-24, CO2 24-29 and BP 83/58. Post cardiorversion: HR 100, SpO2 98% CO2 27, RR 21 and BP 92/49 @ 12:40.
[2019-09-04] MEDS: Normal Saline 250 ML IV ×2 (12:54→13:42)
--- NOTE | 2019-09-04 15:40 | W.PM.HP.N ---
Date of service: 09/04/19 Time of Service: 15:40 Assessment and Plan Assessment and plan (1) Atrial fibrillation with rapid ventricular response: Status: Acute Assessment and plan: Patient is now status post DCC cardioversion. She is chronically anticoagulated with Eliquis. I will start her on amiodarone at 400 mg p.o. twice daily for maintenance of sinus rhythm. Patient is agreeable to short-term treatment with amiodarone pending further evaluation by cardiology. Patient may be a candidate for catheter ablation. Is unclear as to whether or not she is a candidate for mitral valve repair as well. I spoke with Dr. Rodrick Bradford regarding her care and he will see her in the morning for cardiology consultation. 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 Is unclear as to whether or not she is a candidate for mitral valve repair. She had a cardiac catheterization that showed no hemodynamically significant obstructive disease. I will have her follow-up with cardiology to determine her candidacy for mitral valve repair. During her hospitalization at [facility] was felt that some of her cardiomyopathy may been tachycardia mediated. Would be worthwhile performing a repeat echocardiogram once she is remained in sinus rhythm for some time. To see how much of her ejection fraction improves with maintenance of sinus rhythm. Qualifiers: Cardiomyopathy type: other Qualified Code(s): I42.8 - Other cardiomyopathies (3) Mitral regurgitation: Status: Chronic Assessment and plan: Await cardiology evaluation to determine appropriateness for mitral valve repair Qualifiers: Cardiac valve disease etiology: etiology unspecified Qualified Code(s): I34.0 - Nonrheumatic mitral (valve) insufficiency History of Present Illness History of Present Illness Chief Complaint: Palpitations dizziness and dyspnea Narrative: 79-year-old female with a past medical history of paroxysmal atrial fibrillation and nonischemic cardiomyopathy secondary to severe mitral regurgitation. She was transferred to an [facility] from [facility] after presenting in acute congestive heart failure and rapid atrial fibrillation. She was noted to be hypoxemic with oxygen saturation in the 80s. Patient is atrial fibrillation was managed in our emergency department IV Lopressor. Surgery was consulted regarding the large right pleural effusion for which patient underwent thoracentesis. Patient was subsequently transferred to [facility] for further management was performed. Patient was hospitalized from August 16, 2019 through August 23, 2019 for which her CHF was managed with IV and subsequently oral Lasix. Her atrial fibrillation was attempted to be controlled with an esmolol drip which was discontinued due to hypotension she was then loaded with digoxin and she actually went from atrial flutter at 2-1 to a variable atrial flutter heart rate in the 70s to 100 teens. She was started on low-dose captopril. Formal TTE showed left ventricular ejection fraction of 30% with global hypokinesis and dilated LV. She also has severe mitral rotation. Because of her difficult to control atrial flutter she underwent cardioversion and was started on anticoagulation prior to the cardioversion including heparin infusion which was transition to Lovenox and subsequently she was placed on apixaban. She remained in normal sinus rhythm post cardioversion and her digoxin was discontinued. She was then started on oral metoprolol. During her hospitalization she was seen by Dr. Michael Turner who performed a cardiac catheterization on August 21, 2019 this demonstrated non-hemodynamically significant obstructive coronary artery disease, with her left main coronary free of disease in her LAD showing 40% single discrete stenosis in the midsegment LAD. Circumflex is small. RCA shows this 20% single discrete stenosis in the midsegment. Patient now presents the emergency department with acute onset of diaphoresis dizziness nausea and palpitations. She was found to be in rapid atrial fibrillation with a heart rate in the 180s and systolic blood pressure in the 80s. She underwent DCC cardioversion in the emergency department by Dr. John Adkins. Laboratory work-up included a CBC that was unremarkable. CMP was also unremarkable except for glucose of 195. Magnesium was low at 1.4 for which she is receiving a 4 g bolus. Troponin levels were less than 0.05?2 sets. proBNP was elevated at 4800. And her TSH is low at 0.01. She is now admitted overnight on observation for treatment of her recurrent rapid atrial fibrillation. I discussed her case with Dr. Rodrick Bradford regarding antidysrhythmic therapy. Were to start the patient on amiodarone 400 mg p.o. twice daily. Patient did have some reservations because she had a friend whose developed blindness from high deposits from amiodarone. I explained the patient's options including loading dose of Tikosyn which would require 3-day stay only monitor for QTC prolongation. I suggested short-term use of amiodarone therapy until cardiology can reevaluate her for candidacy for an ablation therapy and/or mitral regurgitation repair Review of Systems All systems reviewed & are unremarkable except as noted in HPI and below [facility] Medical History Abnormal ECG (Resolved) 02/23/13 Asthma 02/02/19: Pt denies having asthma. 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 -BR Facet arthropathy, lumbar (Resolved 08/07/14) Gastroesophageal reflux disease with esophagitis (Chronic) H/O sigmoidoscopy (Resolved) 07/12/00 History of infection of total joint prosthesis of knee Hyperlipidemia (Chronic 11/15/12) Impaired fasting glucose (Resolved 05/07/14) Impaired renal function disorder (Chronic) Knee pain (Resolved 06/10/03) S/P knee replacement Leg edema, left (Chronic 12/02/17) Lumbar disc disease with radiculopathy (Chronic 11/19/14) fusion planned 11/23 Lung nodule seen on imaging study (Resolved 03/27/14) negative CT 04/2014 Mass of wrist (Resolved) 02/02/19: Skin tag to left wrist that was removed, per pt. -BR Meniere disease (Resolved) occasional episodes Menieres disease (Inactive) Multinodular goiter (Chronic 04/11/14) calcified mass - bx recommmended 04/24 Nausea & vomiting (Resolved) Neuropathy (Chronic 06/24/15) Other diseases of stomach and duodenum (Resolved 09/29/17) 09/29/17-FOCAL INTESTINAL METAPLASIA;DR. CEBALLOS Other specified arthropathy, other specified sites (Resolved) 08/07/14 facet arthropathy, lumbar Plantar fasciitis (Resolved) 03/18/10 Plantar fasciitis (Chronic 03/18/10) PMR (polymyalgia rheumatica) (Resolved) 06/10/07 on prednisone Polymyalgia rheumatica (Inactive 06/10/07) Pyogenic arthritis of knee (Resolved) 06/23/16 due to unspecified organism, unspecified unilaterally Sepsis (Resolved) Shoulder pain (Resolved 06/10/03) right shoulder bursitis; AC DJD; Left MRI:full thickness right rotator cuff tear Thyroid nodule (Inactive 09/30/17) Tubular adenoma of colon (Chronic 06/28/14) Weakness (Inactive) Surgical History Appendectomy Arthroplasty of knee B/L BACK SURGERY (~11/2014) Rods placed Carpal tunnel syndrome of right wrist (Resolved 02/10/19) Cholecystectomy (~1985) Colonoscopy - MAC (09/29/17) 05/28/14 EGD - MAC (09/29/17) H/O arthroscopy of knee (Resolved) B/L H/O surgical procedure (Resolved) A. ROTATOR CUFF SURGERY B. APPENDECTOMY C. HYSTERECTOMY D. CHOLECYSTECTOMY E. BILATERAL KNEE REPLACEMENT F. BACK SURGERY Hysterectomy, Laproscopic (~1972) Replacement of total knee joint B/L, LEFT WITH REVISION 04/2014 Rotator Cuff Repair (~2004) (Right) S/P appendectomy (Resolved) S/P cholecystectomy (Resolved) 07/12/85 S/P laparoscopic hysterectomy (Resolved) S/P right rotator cuff repair (Resolved) 07/12/04 S/P tonsillectomy and adenoidectomy (Resolved) S/P total knee replacement (Resolved) LEFT Sigmoidoscopy (~2000) Status post appendectomy (Resolved) Status post cholecystectomy (Resolved) Status post laparoscopic hysterectomy (Resolved) Status post rotator cuff repair (Resolved) Status post tonsillectomy and adenoidectomy (Resolved) Status post total bilateral knee replacement (Inactive) Status post total knee replacement (Resolved) LEFT Tonsillectomy and adenoidectomy Family History Mother , 91 Dementia Cancer 02/02/19: Pt denies cancer in mother. -BR Father , [place] at age 57. Heart disease [place] Hyperlipidemia Sister No problems noted. Brother No problems noted. Maternal Grandfather No problems noted. Paternal Grandfather No problems noted. Maternal Grandmother Neoplasm BREAST Grandmother No problems noted. Son No problems noted. Daughter No problems noted. Social History Smoking/Tobacco Use Status: Never Alcohol Intake: current Alcohol Intake frequency: a few times a week Alcohol type: wine Drug use: Never Substance use type: does not use Details: last night wine 1 glass Caregiver/Support person: No Household members: spouse Housing: house Pets and animals: Yes Pets and animals: dog(s) Sexually active: Yes Do you think of yourself as: straight/heterosexual Current gender identity: female What is your relationship status?: How often do you talk on the phone with friends or family?: three or more times per week How often do you get together with friends or relatives?: decline to answer How often do you attend judaism or hindu services?: decline to answer Do you belong to any clubs or organized social groups?: yes Panel score (0-1 are the most socially isolated patients): 3 What type of physical activity do you participate in: none Frequency: does not exercise Leann/Hinduism: Jainism Special leann needs: No Do you feel safe at home: Yes Do you feel safe in your relationship?: Yes Meds Home Medications and Allergies Home Medications Medication Instructions Recorded Confirmed Type calcium carbonate-vitamin D3 1 ea PO DAILY 11/14/12 09/04/19 History [Caltrate with Vitamin D3] multivitamin 1 ea PO DAILY 11/14/12 09/04/19 History omeprazole 40 mg capsule,delayed 40 mg PO DAILY #90 tab-cap 10/24/18 09/04/19 Rx release duloxetine 60 mg capsule,delayed 60 mg PO DAILY #90 tab-cap 11/08/18 09/04/19 Rx release estradiol 10 mcg vaginal tablet 10 mcg VG TWICE A WEEK #24 tab-cap 12/15/18 09/04/19 Rx acetaminophen 500 mg PO Q6H PRN #60 tab 02/09/19 09/04/19 Rx fluticasone propionate 50 1 spray NS BID PRN gm 04/25/19 09/04/19 History mcg/actuation nasal spray,suspension adjuvant AS01B (PF)vial 1 of 2 1 ml IM ONCE #0.5 ml 07/25/19 08/28/19 Rx triamcinolone acetonide 1 applic TP BID PRN 08/16/19 09/04/19 History apixaban 5 mg tablet 5 mg PO BID 08/28/19 09/04/19 History cetirizine 10 mg tablet 10 mg PO DAILY tab 08/28/19 09/04/19 History furosemide 20 mg tablet 10 mg PO DAILY tab 08/28/19 09/04/19 History lisinopril 5 mg tablet 5 mg PO DAILY 08/28/19 09/04/19 History metoprolol succinate 25 mg 25 mg PO DAILY 08/28/19 09/04/19 History tablet,extended release 24 hr Allergies Allergy/AdvReac Type Severity Reaction Status Date / Time iodine Allergy Intermediate hives, IV Verified 09/04/19 13:11 black flies Allergy Severe Hives/swell Uncoded 09/04/19 13:11 ing Exam Narrative Exam Narrative: Elderly female who is alert and oriented person place time circumstance lying in bed in semi-parnell position. HEENT is unremarkable. Neck is supple nontender no JVD no thyromegaly no cervical lymphadenopathy. Lungs are clear to auscultation. Heart is regular with a harsh grade 3 to grade 4/6 holosystolic murmur over the apex with no thrill or heave. Abdomen soft and nontender with normal active bowel sounds no organomegaly no palpable masses no bruits. Lower extremities without peripheral cyanosis or edema. Neurologic exam grossly intact. Results Imaging Chest x-ray: report reviewed EKG: image reviewed Labs Result diagrams: 09/04/19 11:35 09/04/19 11:35 Labs: Laboratory Results - last 24 hr 09/04/19 09/04/19 09/04/19 11:35 11:35 11:35 WBC 5.72 RBC 4.70 Hgb 13.7 Hct 41.7 MCV 88.7 MCH 29.1 MCHC 32.9 RDW 13.9 Plt Count 227 MPV 11.4 H Immature Gran % 0.2 Neutrophils % 64.0 Lymphocytes % 25.5 Monocytes % 7.9 Eosinophils % 2.1 Basophils % 0.3 Absolute Neutrophils 3.66 Absolute Lymphocytes 1.46 Absolute Monocytes 0.45 Absolute Eosinophils 0.12 Absolute Basophils 0.02 PT 10.4 INR 1.0 APTT 25.5 Sodium 143 Potassium 4.3 Chloride 107 Carbon Dioxide 25.4 Anion Gap 10.6 BUN 36 H Creatinine 1.10 H Estimated GFR/1.73 m2 47.91 Glucose 195 H Calcium 10.0 Total Bilirubin 0.4 AST 19 ALT 18 Alkaline Phosphatase 58 Troponin I < 0.05 NT-Pro-B Natriuret Pep 4834 H Total Protein 7.4 Albumin 3.6 Last Vital Signs Temp 36.7 C 09/04/19 14:28 Pulse 99 H 09/04/19 14:28 Resp 19 09/04/19 14:28 BP 93/50 L 09/04/19 14:28 Pulse Ox 99 09/04/19 14:28
[2019-09-04 15:44] LABS: Troponin I < 0.05 ng/Ml (<0.06)
[2019-09-04 16:08] LABS: Magnesium 1.4 mg/dL (1.8-2.4)
[2019-09-04 16:43] LABS: TSH 0.01 uIU/mL (0.36-3.74)
[2019-09-04] MEDS: MAGNESIUM SULFATE 4 GM/100 ML BAG IVPB (16:56)
--- NOTE | 2019-09-04 17:58 | INITIAL_ITS ---
Care Management Initial Assess REASON FOR HOSPITALIZATION:: AFIB with [facility] PAST MEDICAL HISTORY/PAST SURGICAL HISTORY:: Abnormal ECG, asthma, atrophic vaginitis, campylobacter diarrhea, carpal tunnel syndrome, cervical disc disorder with myelopathy, chronic myeloid leukemia in remission, depressive disorder, diverticulosis of colon without diverticulitis, elevated fasting glucose, enteritis due to campylobacter species, essential hypertension, facet arthropathy, lumbar, GERD with esophagitis, sigmoidoscopy, total knee joint prosthesis infection, impaired renal function disorder, lumbar disc disease with radiculopathy, meniere disease, multinodular goiter, nausea and vomitting, neuropathy, plantar fascitis, PMR, pyogenic knee arthritis, tubular adenoma of colon, weakness, thyroid nodule, appendectomy, back surgery with katelynn placement, carpal tunnel syndrome of right wrist, cholecystectomy, colonoscopy, EGD, rota tor cuff surgery, laparoscopic hysterectomy, replacement of total knee joints bilaterally, T&A PREVIOUS FUNCTIONAL STATUS/SOCIAL/FAMILY SUPPORTS:: Rubina resides in [place] with her , Reuben and their dogs. They moved to [place] about 20 yrs ago when they retired. They have two adult sons and and two daughters who all live out of state, but they maintain phone contact. She is usually active and independent despite chronic LBP, but she had marked deterioration in her functional status and has frequent falls. CURRENT FUNCTIONAL STATUS:: Rubina is currently admitted observation to ICU for parental IV ABX and further monitoring. Per MD, she may discharge home with giselle with close follow up with Dr. Steinberg. will continue to follow and assess Rubina for further discharge considerations. ADVANCE DIRECTIVES:: Document on file at [facility], Reuben as agent, daughter Park Toussaint as alternate. Has patient been provided with information about the portal?: Yes Did the patient sign up for the portal?: No CODE STATUS:: Full Code INSURANCE COVERAGE / FINANCIAL ISSUES:: Medicare. for Life CURRENT HOME/COMMUNITY SERVICES/EQUIPMENT:: Privately hired homemaker, walker, crutches and raised toilet seat. PRIMARY CARE PHYSICIAN:: Tana Adler MD POTENTIAL DISCHARGE NEEDS:: PT/OT evaluations. Follow up appointments. PATIENT/FAMILY EDUCATION NEEDS:: Discuss Ask Me Three questions with patient to assure patient understanding of reason for hospitalization and knowledge of what to do for self care at home. Review discharge instructions regarding meds and activity levels. ANTICIPATED BARRIERS TO DISCHARGE:: None identified at this time. TRANSPORTATION:: Via private vehicle with with her PLAN:: Rubina will return home when ready per MD. Anticipate she will be evaluated by PT/OT prior to discharge to evaluate skilled service need. She will follow up with her PCP, Dr. Steinberg, and plan of care as prescribed. She will transport via private vehicle with her .
[2019-09-04] MEDS: Amiodarone 200 MG TAB 400 MG PO (19:55)
[2019-09-04] MEDS: Acetaminophen 325 MG TAB PO (19:56)
[2019-09-04] MEDS: Apixaban 5 MG TAB PO (23:32)
[2019-09-04] MEDS: Normal Saline Flush 10 ML SYR (23:33)
[2019-09-05] VITALS (11 sets, daily range): BP systolic 95–109; BP diastolic 49–59; PULSE 79–103; RESP 12–24; TEMP 36.7–37.2; O2SAT 84–98
[2019-09-05] MEDS: Omeprazole 20 MG CAPCR PO (08:09)
[2019-09-05] MEDS: Apixaban 5 MG TAB PO (08:09)
[2019-09-05] MEDS: Amiodarone 200 MG TAB 400 MG PO (08:09)
--- NOTE | 2019-09-05 08:39 | W.CARDCONSUL ---
Date of service: 09/05/19 Time of Service: 08:39 Assessment and Plan Assessment and plan (1) Mitral regurgitation: Status: Chronic Assessment and plan: 1. Nonischemic cardiomyopathy. Likely multifactorial as she has nonobstructive coronary disease, and exposure to chemotherapy remotely as well as this history of atrial fibrillation and atrial flutter. She also has moderate to severe mitral regurgitation which is likely secondary to a cardiomyopathy. ?Continue metoprolol ?Continue lisinopril with hope of increasing this dose as outpatient ?Will plan to start spironolactone as an outpatient ?We will discuss mitral regurgitation below. 2. Moderate to severe mitral regurgitation: It is unclear if this is primary or secondary MR. Her LV is not significantly dilated. She does have significant trouble with fluid but this is primarily in the setting of A. fib with RVR. I think it would be worth having her see the valve team down at [facility] especially in the setting of likely receiving an atrial fibrillation ablation. ?When she follows up in clinic we will discuss these referrals ?Continue furosemide ?Beta-marcus as above 3. History of atrial flutter as well as atrial fibrillation on this admission. Per the [facility] notes she was atrial flutter and EKG certainly confirms that. Here on this admission is very much irregular and likely atrial fibrillation instead. We discussed the potential options of antiarrhythmics versus ablation as she really does not tolerate a fast heart rate very well at all. She agreed to start amiodarone in the short-term with a plan for ablation eventually. ?Start amiodarone load (I usually do 400 mg twice daily x1 week then 400 mg daily x1 week then 200 mg daily onwards). ?She will need a TSH, AST and ALT as well as an eye examination and PFTs at the initiation of amiodarone. Some of this can be done as an outpatient. ?We will see patient in clinic and discuss referral for ablation at that point. Please have patient see me in the next 3 to 4 weeks as an outpatient new visit. Qualifiers: Cardiac valve disease etiology: etiology unspecified Qualified Code(s): I34.0 - Nonrheumatic mitral (valve) insufficiency (2) Atrial fibrillation with rapid ventricular response: Status: Acute (3) Cardiomyopathy: Status: Acute Qualifiers: Cardiomyopathy type: other Qualified Code(s): I42.8 - Other cardiomyopathies History of Present Illness History of Present Illness Chief Complaint: Dizziness Narrative: Ms. Pizarro is a 79-year-old female with past medical history significant for atrial fibrillation, nonischemic cardiomyopathy (ejection fraction 30-35%%), severe mitral regurgitation and CKD who was recently admitted to [facility] with severe shortness of breath. Briefly she came to the emergency room here at [facility] and was found to be hypoxic. She had a thoracentesis done and drained 800 cc of fluid. She was also found to be in A. Flutter with RVR so she was given an metoprolol bolus and became hypotensive. She was then transferred to [facility] on BiPAP. There she was cardioverted with success and diuresed. She was started on digoxin which was stopped before discharge. Coronary catheterization showed nonobstructive coronary disease. It was felt that her cardiomyopathy was due either to tachycardia or remote history of chemotherapy. She was discharged home and did well for about 10 days but was readmitted to the hospital here with recurrence of atrial fibrillation (not flutter this time). She was successfully cardioverted in the emergency room but brought in for observation. She has now been in normal sinus rhythm for over 24 hours and is feeling well. She currently denies palpitations lightheadedness or dizziness. She has no shortness of breath. She says her lower extremity edema has improved. Review of Systems All systems reviewed & are unremarkable except as noted in HPI and below PFSH Medical History Abnormal ECG (Resolved) 02/23/13 Asthma 02/02/19: Pt denies having asthma. 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 -BR Facet arthropathy, lumbar (Resolved 08/07/14) Gastroesophageal reflux disease with esophagitis (Chronic) H/O sigmoidoscopy (Resolved) 07/12/00 History of infection of total joint prosthesis of knee Hyperlipidemia (Chronic 11/15/12) Impaired fasting glucose (Resolved 05/07/14) Impaired renal function disorder (Chronic) Knee pain (Resolved 06/10/03) S/P knee replacement Leg edema, left (Chronic 12/02/17) Lumbar disc disease with radiculopathy (Chronic 11/19/14) fusion planned 11/23 Lung nodule seen on imaging study (Resolved 03/27/14) negative CT 04/2014 Mass of wrist (Resolved) 02/02/19: Skin tag to left wrist that was removed, per pt. -BR Meniere disease (Resolved) occasional episodes Menieres disease (Inactive) Multinodular goiter (Chronic 04/11/14) calcified mass - bx recommmended 04/24 Nausea & vomiting (Resolved) Neuropathy (Chronic 06/24/15) Other diseases of stomach and duodenum (Resolved 09/29/17) 09/29/17-FOCAL INTESTINAL METAPLASIA;DR. CEBALLOS Other specified arthropathy, other specified sites (Resolved) 08/07/14 facet arthropathy, lumbar Plantar fasciitis (Resolved) 03/18/10 Plantar fasciitis (Chronic 03/18/10) PMR (polymyalgia rheumatica) (Resolved) 06/10/07 on prednisone Polymyalgia rheumatica (Inactive 06/10/07) Pyogenic arthritis of knee (Resolved) 06/23/16 due to unspecified organism, unspecified unilaterally Sepsis (Resolved) Shoulder pain (Resolved 06/10/03) right shoulder bursitis; AC DJD; Left MRI:full thickness right rotator cuff tear Thyroid nodule (Inactive 09/30/17) Tubular adenoma of colon (Chronic 06/28/14) Weakness (Inactive) Surgical History Appendectomy Arthroplasty of knee B/L BACK SURGERY (~11/2014) Rods placed Carpal tunnel syndrome of right wrist (Resolved 02/10/19) Cholecystectomy (~1985) Colonoscopy - MAC (09/29/17) 05/28/14 EGD - MAC (09/29/17) H/O arthroscopy of knee (Resolved) B/L H/O surgical procedure (Resolved) A. ROTATOR CUFF SURGERY B. APPENDECTOMY C. HYSTERECTOMY D. CHOLECYSTECTOMY E. BILATERAL KNEE REPLACEMENT F. BACK SURGERY Hysterectomy, Laproscopic (~1972) Replacement of total knee joint B/L, LEFT WITH REVISION 04/2014 Rotator Cuff Repair (~2004) (Right) S/P appendectomy (Resolved) S/P cholecystectomy (Resolved) 07/12/85 S/P laparoscopic hysterectomy (Resolved) S/P right rotator cuff repair (Resolved) 07/12/04 S/P tonsillectomy and adenoidectomy (Resolved) S/P total knee replacement (Resolved) LEFT Sigmoidoscopy (~2000) Status post appendectomy (Resolved) Status post cholecystectomy (Resolved) Status post laparoscopic hysterectomy (Resolved) Status post rotator cuff repair (Resolved) Status post tonsillectomy and adenoidectomy (Resolved) Status post total bilateral knee replacement (Inactive) Status post total knee replacement (Resolved) LEFT Tonsillectomy and adenoidectomy Family History Mother , 91 Dementia Cancer 02/02/19: Pt denies cancer in mother. -BR Father , [place] at age 57. Heart disease [place] Hyperlipidemia Sister No problems noted. Brother No problems noted. Maternal Grandfather No problems noted. Paternal Grandfather No problems noted. Maternal Grandmother Neoplasm BREAST Grandmother No problems noted. Son No problems noted. Daughter No problems noted. Social History Smoking/Tobacco Use Status: Never Alcohol Intake: current Alcohol Intake frequency: a few times a week Alcohol type: wine Drug use: Never Substance use type: does not use Details: last night wine 1 glass Caregiver/Support person: No Household members: spouse Housing: house Pets and animals: Yes Pets and animals: dog(s) Sexually active: Yes Do you think of yourself as: straight/heterosexual Current gender identity: female What is your relationship status?: How often do you talk on the phone with friends or family?: three or more times per week How often do you get together with friends or relatives?: decline to answer How often do you attend scientologist or latter-day services?: decline to answer Do you belong to any clubs or organized social groups?: yes Panel score (0-1 are the most socially isolated patients): 3 What type of physical activity do you participate in: none Frequency: does not exercise Leann/Scientology: Spiritism Special leann needs: No Do you feel safe at home: Yes Do you feel safe in your relationship?: Yes Exam Const General: comfortable and no acute distress [facility] Head: normocephalic and atraumatic Eyes General: appearance normal, both eyes and all related structures Resp Effort & Inspection: normal respiratory effort Auscultation: clear to auscultation bilaterally Cardio Jugular venous pressure: no JVD Palpation: normal PMI Rate: regular rate Rhythm: regular rhythm Heart Sounds: S1 normal and murmur systolic holo and III/ GI Palpation: soft Auscultation: normoactive bowel sounds Skin General skin exam: no rashes or lesions noted Extrem General: normal to inspection and no clubbing, cyanosis or edema Psych Appearance: grossly normal Results Last Vital Signs Temp 36.7 C 09/05/19 03:10 Pulse 87 09/05/19 02:00 Resp 15 09/05/19 02:00 BP 97/57 L 09/05/19 02:00 Pulse Ox 88 L 09/05/19 02:00 Labs Result diagrams: 09/04/19 11:35 09/04/19 11:35 Labs: Laboratory Results - last 24 hr 09/04/19 09/04/19 09/04/19 11:35 11:35 11:35 WBC 5.72 RBC 4.70 Hgb 13.7 Hct 41.7 MCV 88.7 MCH 29.1 MCHC 32.9 RDW 13.9 Plt Count 227 MPV 11.4 H Immature Gran % 0.2 Neutrophils % 64.0 Lymphocytes % 25.5 Monocytes % 7.9 Eosinophils % 2.1 Basophils % 0.3 Absolute Neutrophils 3.66 Absolute Lymphocytes 1.46 Absolute Monocytes 0.45 Absolute Eosinophils 0.12 Absolute Basophils 0.02 PT 10.4 INR 1.0 APTT 25.5 Sodium 143 Potassium 4.3 Chloride 107 Carbon Dioxide 25.4 Anion Gap 10.6 BUN 36 H Creatinine 1.10 H Estimated GFR/1.73 m2 47.91 Glucose 195 H Calcium 10.0 Magnesium Total Bilirubin 0.4 AST 19 ALT 18 Alkaline Phosphatase 58 Troponin I < 0.05 NT-Pro-B Natriuret Pep 4834 H Total Protein 7.4 Albumin 3.6 TSH 09/04/19 09/04/19 09/04/19 15:08 15:08 15:08 WBC RBC Hgb Hct MCV MCH MCHC RDW Plt Count MPV Immature Gran % Neutrophils % Lymphocytes % Monocytes % Eosinophils % Basophils % Absolute Neutrophils Absolute Lymphocytes Absolute Monocytes Absolute Eosinophils Absolute Basophils PT INR APTT Sodium Potassium Chloride Carbon Dioxide Anion Gap BUN Creatinine Estimated GFR/1.73 m2 Glucose Calcium Magnesium 1.4 L Total Bilirubin AST ALT Alkaline Phosphatase Troponin I < 0.05 NT-Pro-B Natriuret Pep Total Protein Albumin TSH 0.01 L 09/05/19 06:25 WBC RBC Hgb Hct MCV MCH MCHC RDW Plt Count MPV Immature Gran % Neutrophils % Lymphocytes % Monocytes % Eosinophils % Basophils % Absolute Neutrophils Absolute Lymphocytes Absolute Monocytes Absolute Eosinophils Absolute Basophils PT INR APTT Sodium Potassium Chloride Carbon Dioxide Anion Gap BUN Creatinine Estimated GFR/1.73 m2 Glucose Calcium Magnesium 2.0 Total Bilirubin AST ALT Alkaline Phosphatase Troponin I NT-Pro-B Natriuret Pep Total Protein Albumin TSH
--- NOTE | 2019-09-05 09:12 | W.PM.PROGNOT ---
Date of Service Date of service: 09/05/19 Time of Service: 09:12 Assessment and Plan Assessment and plan (1) Atrial fibrillation with rapid ventricular response: Status: Acute Assessment and plan: Discharge home on amiodarone 400 mg p.o. twice daily for 2 weeks and 400 mg daily. Further adjustment to be determined by cardiology. Continue current anticoagulation with apixaban continue current dose of Toprol-XL 25 mg daily. (2) Mitral regurgitation: Status: Chronic Assessment and plan: Further evaluation for surgical repair to be determined at follow-up with her marine chronometer assembler. Qualifiers: Cardiac valve disease etiology: etiology unspecified Qualified Code(s): I34.0 - Nonrheumatic mitral (valve) insufficiency (3) Cardiomyopathy: Status: Acute Assessment and plan: Consider repeat echocardiogram in 3 to 4 weeks after she is remained in sinus rhythm to evaluate for any improvement in her cardiomyopathy. If she elects for mitral valve repair she will need a ODESSA anyway. Qualifiers: Cardiomyopathy type: other Qualified Code(s): I42.8 - Other cardiomyopathies Subjective Subjective Interval history since last seen: Patient denies any further episodes of shortness of breath dizziness lightheadedness nor any chest pain. She has been up ambulating around the intensive care unit as well as the medical/surgical floor. Review of her telemetry demonstrates a brief run of PSVT versus A. fib at a rate of about 150 bpm that lasted about 12 seconds for which she was asymptomatic. This occurred around 7:20 AM. I reviewed her case with Dr. Rodrick Bradford, marine chronometer assembler from [place]. He agrees the patient should be discharged home on tapering doses of amiodarone starting at 400 mg twice a day for 2 weeks then 400 mg daily. Patient will follow-up with Dr. Bradford in 2 weeks to discuss ablation treatment of her atrial fibrillation and consideration of mitral valve repair. Exam Narrative Exam Narrative: Pleasant elderly female who is sitting up in bed currently asymptomatic. She is alert and oriented person place time circumstance. Lungs are clear to auscultation. Heart is regular with a harsh systolic murmur over the apex. Abdomen soft and nontender. Extremities without peripheral cyanosis or edema. Objective Objective Clinical Data: Abnormal lab results 09/04/19 09/04/19 09/04/19 Range/Units 11:35 11:35 15:08 MPV 11.4 H (8.0-11.0) fL BUN 36 H (7-18) mg/dL Creatinine 1.10 H (0.55-1.02) mg/dL Glucose 195 H (74-106) mg/dL Magnesium (1.8-2.4) mg/dL NT-Pro-B Natriuret Pep 4834 H (<300) pg/mL TSH 0.01 L (0.36-3.74) uIU/mL 09/04/19 Range/Units 15:08 MPV (8.0-11.0) fL BUN (7-18) mg/dL Creatinine (0.55-1.02) mg/dL Glucose (74-106) mg/dL Magnesium 1.4 L (1.8-2.4) mg/dL NT-Pro-B Natriuret Pep (<300) pg/mL TSH (0.36-3.74) uIU/mL Vital Signs Temperature 36.7 C 09/05/19 03:10 Temperature Source Temporal Artery Scan 09/05/19 03:10 Pulse 92 H 09/05/19 08:13 Pulse 92 H 09/05/19 08:13 Respiratory Rate 16 09/05/19 08:13 Respiratory Effort Non-Labored 09/05/19 03:10 Respiratory Depth Normal 09/05/19 03:10 Respiratory Pattern Normal 09/05/19 03:10 Blood Pressure 105/53 L 09/05/19 08:13 Blood Pressure Mean 62 09/05/19 08:13 Blood Pressure Position Supine 09/05/19 03:10 Pulse Oximetry 95 09/05/19 08:56 Respiratory End-tidal CO2 24 09/04/19 13:16 Oxygen Delivery Method Room Air 09/05/19 08:56 Oxygen Flow Rate 0 09/05/19 08:56 Pain Level 0 09/05/19 03:10 Intake & Output 09/04/19 09/04/19 09/05/19 11:59 23:59 11:59 Intake Total 1128.167 / 1128.167 Output Total 825 / 825 800 / 800 Balance 303.167 / 303.167 -800 / -800 Weight 73.6 kg 73.6 kg Intake: IV 628.167 / 628.167 Oral 500 / 500 Output: Urine 825 / 825 800 / 800 Other: Urine Color Yellow Yellow Urine Appearance Clear Clear Urine Odor Normal Normal Comment mixed in stool Stool Occult Blood Negative Stool Size Small Stool Characteristics Soft Formed Voiding Methods Bedside Commode Bedside Commode Laboratory Results WBC 5.72 k/cumm (4.4-10.8) 09/04/19 11:35 RBC 4.70 m/cumm (4.00-5.20) 09/04/19 11:35 Hgb 13.7 g/dL (12.0-15.5) 09/04/19 11:35 Hct 41.7 % (36.0-46.0) 09/04/19 11:35 MCV 88.7 fL (80-95) 09/04/19 11:35 MCH 29.1 pg (27.0-33.0) 09/04/19 11:35 MCHC 32.9 g/dL (32.0-36.0) 09/04/19 11:35 RDW 13.9 % (11.7-14.6) 09/04/19 11:35 Plt Count 227 x1000/uL (130-400) 09/04/19 11:35 MPV 11.4 fL (8.0-11.0) H 09/04/19 11:35 Immature Gran % 0.2 % 09/04/19 11:35 Neutrophils % 64.0 09/04/19 11:35 Lymphocytes % 25.5 09/04/19 11:35 Monocytes % 7.9 09/04/19 11:35 Eosinophils % 2.1 09/04/19 11:35 Basophils % 0.3 09/04/19 11:35 Absolute Neutrophils 3.66 k/cumm (1.2-6.7) 09/04/19 11:35 Absolute Lymphocytes 1.46 k/cumm (1.2-3.4) 09/04/19 11:35 Absolute Monocytes 0.45 k/cumm (0.11-0.7) 09/04/19 11:35 Absolute Eosinophils 0.12 k/cumm (0.0-0.7) 09/04/19 11:35 Absolute Basophils 0.02 k/cumm (0.0-0.2) 09/04/19 11:35 PT 10.4 sec (9.3-11.0) 09/04/19 11:35 INR 1.0 (0.9-1.1) 09/04/19 11:35 APTT 25.5 sec (21.0-31.4) 09/04/19 11:35 Sodium 143 mmol/L (136-145) 09/04/19 11:35 Potassium 4.3 mmol/L (3.5-5.1) 09/04/19 11:35 Chloride 107 mmol/L (98-107) 09/04/19 11:35 Carbon Dioxide 25.4 mmol/L (21.0-32.0) 09/04/19 11:35 Anion Gap 10.6 mmol/L (3-11) 09/04/19 11:35 BUN 36 mg/dL (7-18) H 09/04/19 11:35 Creatinine 1.10 mg/dL (0.55-1.02) H 09/04/19 11:35 Estimated GFR/1.73 m2 47.91 (mL/min/1.73m2) 09/04/19 11:35 Glucose 195 mg/dL (74-106) H 09/04/19 11:35 Calcium 10.0 mg/dL (8.5-10.1) 09/04/19 11:35 Magnesium 2.0 mg/dL (1.8-2.4) 09/05/19 06:25 Total Bilirubin 0.4 mg/dL (0.2-1.0) 09/04/19 11:35 AST 19 U/L (15-37) 09/04/19 11:35 ALT 18 U/L (14-59) 09/04/19 11:35 Alkaline Phosphatase 58 U/L (46-116) 09/04/19 11:35 Troponin I < 0.05 ng/Ml (<0.06) 09/04/19 15:08 NT-Pro-B Natriuret Pep 4834 pg/mL (<300) H 09/04/19 11:35 Total Protein 7.4 g/dL (6.4-8.2) 09/04/19 11:35 Albumin 3.6 g/dL (3.4-5.0) 09/04/19 11:35 TSH 0.01 uIU/mL (0.36-3.74) L 09/04/19 15:08
--- NOTE | 2019-09-05 10:43 | W.NUTCONSULT ---
Date of service: 09/05/19 Time of Service: 10:43 Nutritional Consult ASSESSMENT: 79 year old female admitted with a fib, cardiomyopathy and CHF. Following Heart Healthy Diet with adequate intake. BMI wnl for age. Not considered at nutritional risk at this time. MONITORING AND EVALUATION: po intake, weight, labs Time Spent in Nutritional Counseling and Treatment: 0 time spent face to face
--- NOTE | 2019-09-05 12:35 | W.PM.DS.N ---
Date of service: 09/05/19 Time of Service: 12:35 DS: Diagnosis Discharge Diagnosis (1) Atrial fibrillation with rapid ventricular response: Status: Acute Asessment and Plan: Patient underwent DCC cardioversion for her rapid atrial fibrillation due to symptomatic hypotension associated with a heart rate of 180. This was performed the emergency department. Patient was monitored overnight with serial troponin levels that came back negative for acute coronary syndrome. Consultation was obtained with Dr. Rodrick Bradford and it was agreed to start the patient on amiodarone therapy to maintain sinus rhythm. Patient will take amiodarone 4 mg twice a day for 2 weeks then decrease the dose to 4 mg once a day. She will follow-up with Dr. Rodrick Bradford in the next 2 weeks to discuss catheter ablation of her atrial fibrillation pathway and to discuss mitral valve repair. Patient is to remain on her current dose of apixaban and Toprol-XL. (2) Mitral regurgitation: Status: Chronic Asessment and Plan: Follow-up as above. (3) Cardiomyopathy: Status: Acute Asessment and Plan: Continue home dose of furosemide and lisinopril. Repeat echocardiogram will be performed as an outpatient at the ediphone operator discretion. Patient will certainly need a ODESSA before any planning of the mitral valve repair. Discharge Plan Disposition Patient Disposition: HOME Condition: Improving Discharge Details Chief Complaint: Dizzy/Sync Clinical Impression: Atrial fibrillation with rapid ventricular response, Acute hypotension Reason For Visit: AFBRADLEY W RVR Admit Date/Time: 09/04/19 12:56 Admit Provider: Juan Pablo Rosario Attending Provider: Juan Pablo Rosario Primary Care Provider: Tana Adler ED Provider: John Adkins Hospital Course Hospital Course: Patient has a history of paroxysmal atrial fibrillation and nonischemic cardiomyopathy secondary to severe mitral regurgitation. She had a recent hospitalization at [facility] in which she presented with the acute congestive heart failure and rapid A. fib. She underwent DCC cardioversion at [facility] after being started on digoxin. That was discontinued prior to discharge. See my history and physical examination report for details. This hospitalization she presented with recurrent atrial fibrillation with rapid rate in the 180s and systolic pressure in the 80s. She underwent DCC cardioversion in the emergency department. Serial troponin levels were negative. proBNP was elevated at 4800 although clinically she did not appear to be in CHF. She was started on amiodarone 4 mg p.o. BID and monitored overnight. Dr. Rodrick Bradford was consulted from cardiology who agreed to follow-up with her in 2 weeks. He did briefly discuss with her benefits of catheter ablation of her atrial fibrillation/atrial flutter. I discussed with the patient initiation of Tikosyn as opposed to amiodarone. She had some reservations about the amiodarone due to a friend's who developed blindness from deposits in his eyes from amiodarone therapy. She did not want to stay in the hospital for 3-day stay while we initiated and monitored for any pro arrhythmias from Tikosyn. She was agreeable to short-term treatment with amiodarone pending catheter ablation. She will discuss mitral valve repair with Dr. Bradford upon follow-up. Home Meds and New Rx's Prescriptions: New amiodarone 400 mg tablet 400 mg PO DIRECTED Qty: 60 RF: 0 Continued duloxetine 60 mg capsule,delayed release(DR/EC) 60 mg PO DAILY Qty: 90 RF: 11 metoprolol succinate 25 mg tablet extended release 24 hr 25 mg PO DAILY RF: 0 furosemide 20 mg tablet 10 mg PO DAILY RF: 0 Eliquis 5 mg tablet 5 mg PO BID RF: 0 lisinopril 5 mg tablet 5 mg PO DAILY RF: 0 cetirizine 10 mg tablet 10 mg PO DAILY RF: 0 fluticasone propionate 50 mcg/actuation spray,suspension 1 spray NS BID PRNRF: 0 multivitamin 1 EACH tablet 1 ea PO DAILY RF: 0 calcium carbonate-vitamin D3 [Caltrate with Vitamin D3] 1 EACH tablet 1 ea PO DAILY RF: 0 omeprazole 40 mg capsule,delayed release(DR/EC) 40 mg PO DAILY Qty: 90 RF: 4 estradiol [Vagifem] 10 mcg tablet 10 mcg VG TWICE A WEEK Qty: 24 RF: 4 Shingrix Adjuvant Component-PF Suspension 1 ml IM ONCE Qty: 0.5 RF: 1 acetaminophen 500 mg tablet 500 mg PO Q6H PRN (Reason: pain) Qty: 60 RF: 0 triamcinolone acetonide 0.1 % cream 1 applic TP BID PRNRF: 0 Discharge Instructions Instructions: Atrial Fibrillation (DC), Electrophysiology Study (DC), Minimally Invasive Maze Procedure (DC) Additional Instructions: Begin amiodarone 400 mg twice a day for the next 2 weeks then decrease dose to 400 mg once a day. Follow-up with Dr. Rodrick Bradford, ediphone operator from [facility] at the specialty clinic in [facility]. His office will call you for an appointment date and time. Activity:: Activity as Tolerated Equipment/Supplies:: No Equipment Needed Diet:: As Tolerated Discharge Orders Discharge Orders: Discharge Order (Routine); Ordered 09/05/19 Ordered By: Juan Pablo Rosario DS: Summary Status at Discharge Functional status at discharge: independent ambulation Overall status at discharge: patient is back to baseline Mental Status: mental status grossly normal Speech and Movement: speech and movement normal Mood: congruent mood Affect: normal affect Exam Narrative Exam Narrative: Pleasant elderly female who is sitting up in bed currently asymptomatic. She is alert and oriented person place time circumstance. Lungs are clear to auscultation. Heart is regular with a harsh systolic murmur over the apex. Abdomen soft and nontender. Extremities without peripheral cyanosis or edema. Psych Mental Status: mental status grossly normal Speech and Movement: speech and movement normal Mood: congruent mood Affect: normal affect DS: Data Vitals/I&O Vitals and I&O: Vital Signs Temperature 36.7 C 09/05/19 03:10 Temperature Source Temporal Artery Scan 09/05/19 09:00 Pulse 92 H 09/05/19 08:13 Pulse 92 H 09/05/19 08:13 Respiratory Rate 16 09/05/19 08:13 Respiratory Effort Non-Labored 09/05/19 09:00 Respiratory Depth Normal 09/05/19 09:00 Respiratory Pattern Normal 09/05/19 09:00 Blood Pressure 105/53 L 09/05/19 08:13 Blood Pressure Mean 62 09/05/19 08:13 Blood Pressure Position Supine 09/05/19 09:00 Pulse Oximetry 95 09/05/19 08:56 Respiratory End-tidal CO2 24 09/04/19 13:16 Oxygen Delivery Method Room Air 09/05/19 09:00 Oxygen Flow Rate 0 09/05/19 09:00 Pain Level 0 09/05/19 09:00 Intake & Output 09/04/19 09/05/19 09/05/19 23:59 11:59 23:59 Intake Total 1128.167 / 1128.167 240 / 240 Output Total 825 / 825 1100 / 1100 Balance 303.167 / 303.167 -860 / -860 Weight 73.6 kg Intake: IV 628.167 / 628.167 Oral 500 / 500 240 / 240 Output: Urine 825 / 825 1100 / 1100 Other: Urine Color Yellow Pale Yellow Urine Appearance Clear Clear Urine Odor Normal Normal Comment mixed in stool Stool Occult Blood Negative Stool Size Small Stool Characteristics Soft Formed Voiding Methods Bedside Commode Bedside Commode Data Completed and Pending Labs on day of discharge: Labs from last 24 hours 09/05/19 09/04/19 09/04/19 06:25 15:08 15:08 Magnesium 2.0 1.4 L Troponin I TSH 0.01 L 09/04/19 15:08 Magnesium Troponin I < 0.05 TSH [facility] Medical History Abnormal ECG (Resolved) 02/23/13 Asthma 02/02/19: Pt denies having asthma. 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 -BR Facet arthropathy, lumbar (Resolved 08/07/14) Gastroesophageal reflux disease with esophagitis (Chronic) H/O sigmoidoscopy (Resolved) 07/12/00 History of infection of total joint prosthesis of knee Hyperlipidemia (Chronic 11/15/12) Impaired fasting glucose (Resolved 05/07/14) Impaired renal function disorder (Chronic) Knee pain (Resolved 06/10/03) S/P knee replacement Leg edema, left (Chronic 12/02/17) Lumbar disc disease with radiculopathy (Chronic 11/19/14) fusion planned 11/23 Lung nodule seen on imaging study (Resolved 03/27/14) negative CT 04/2014 Mass of wrist (Resolved) 02/02/19: Skin tag to left wrist that was removed, per pt. -BR Meniere disease (Resolved) occasional episodes Menieres disease (Inactive) Multinodular goiter (Chronic 04/11/14) calcified mass - bx recommmended 04/24 Nausea & vomiting (Resolved) Neuropathy (Chronic 06/24/15) Other diseases of stomach and duodenum (Resolved 09/29/17) 09/29/17-FOCAL INTESTINAL METAPLASIA;DR. CEBALLOS Other specified arthropathy, other specified sites (Resolved) 08/07/14 facet arthropathy, lumbar Plantar fasciitis (Resolved) 03/18/10 Plantar fasciitis (Chronic 03/18/10) PMR (polymyalgia rheumatica) (Resolved) 06/10/07 on prednisone Polymyalgia rheumatica (Inactive 06/10/07) Pyogenic arthritis of knee (Resolved) 06/23/16 due to unspecified organism, unspecified unilaterally Sepsis (Resolved) Shoulder pain (Resolved 06/10/03) right shoulder bursitis; AC DJD; Left MRI:full thickness right rotator cuff tear Thyroid nodule (Inactive 09/30/17) Tubular adenoma of colon (Chronic 06/28/14) Weakness (Inactive) Surgical History Appendectomy Arthroplasty of knee B/L BACK SURGERY (~11/2014) Rods placed Carpal tunnel syndrome of right wrist (Resolved 02/10/19) Cholecystectomy (~1985) Colonoscopy - MAC (09/29/17) 05/28/14 EGD - MAC (09/29/17) H/O arthroscopy of knee (Resolved) B/L H/O surgical procedure (Resolved) A. ROTATOR CUFF SURGERY B. APPENDECTOMY C. HYSTERECTOMY D. CHOLECYSTECTOMY E. BILATERAL KNEE REPLACEMENT F. BACK SURGERY Hysterectomy, Laproscopic (~1972) Replacement of total knee joint B/L, LEFT WITH REVISION 04/2014 Rotator Cuff Repair (~2004) (Right) S/P appendectomy (Resolved) S/P cholecystectomy (Resolved) 07/12/85 S/P laparoscopic hysterectomy (Resolved) S/P right rotator cuff repair (Resolved) 07/12/04 S/P tonsillectomy and adenoidectomy (Resolved) S/P total knee replacement (Resolved) LEFT Sigmoidoscopy (~2000) Status post appendectomy (Resolved) Status post cholecystectomy (Resolved) Status post laparoscopic hysterectomy (Resolved) Status post rotator cuff repair (Resolved) Status post tonsillectomy and adenoidectomy (Resolved) Status post total bilateral knee replacement (Inactive) Status post total knee replacement (Resolved) LEFT Tonsillectomy and adenoidectomy Family History Mother , 91 Dementia Cancer 02/02/19: Pt denies cancer in mother. -BR Father , [place] at age 57. Heart disease [place] Hyperlipidemia Sister No problems noted. Brother No problems noted. Maternal Grandfather No problems noted. Paternal Grandfather No problems noted. Maternal Grandmother Neoplasm BREAST Grandmother No problems noted. Son No problems noted. Daughter No problems noted. Social History Smoking/Tobacco Use Status: Never Alcohol Intake: current Alcohol Intake frequency: a few times a week Alcohol type: wine Drug use: Never Substance use type: does not use Details: last night wine 1 glass Caregiver/Support person: No Household members: spouse Housing: house Pets and animals: Yes Pets and animals: dog(s) Sexually active: Yes Do you think of yourself as: straight/heterosexual Current gender identity: female What is your relationship status?: How often do you talk on the phone with friends or family?: three or more times per week How often do you get together with friends or relatives?: decline to answer How often do you attend methodist or jew services?: decline to answer Do you belong to any clubs or organized social groups?: yes Panel score (0-1 are the most socially isolated patients): 3 What type of physical activity do you participate in: none Frequency: does not exercise Leann/Samaritan: Anabaptist Special leann needs: No Do you feel safe at home: Yes Do you feel safe in your relationship?: Yes
--- NOTE | 2019-09-05 16:10 | PDOC.CMDIS ---
LACE Index Scoring Tool - Questions: Length of Stay (in days): 1 Acuity (Admit via E.D.?): Yes Comorbidities: Any Tumor E.D. Visits: 3 - Answers: Total Score: 9 Risk of Readmission: Low Risk Care Management Discharge Reason for Hospitalization: AFIB with RVR Discharge Plan: Rubina will return home when ready per MD. She will follow up with her PCP, cardiology, and plan of care as prescribed. She will transport via private vehicle with her . Patient/Family Education Needs: Review discharge instructions, discuss Ask Me Three.
== END 2019-09-05 13:40 | disposition home or self-care (01) ==
LOC: ER 13:42 → ICU 14:32
PROVIDERS: Admitting Provider Internal Medicine; Emergency Provider Student in an Organized Health Care Education/Training Program; PCP Family Medicine; Visit Provider Internal Medicine
DX: I48.0 Paroxysmal atrial fibrillation (principal); I34.0 Nonrheumatic mitral (valve) insufficiency; I42.8 Other cardiomyopathies; Z79.01 Long term (current) use of anticoagulants; R09.02 Hypoxemia; E83.42 Hypomagnesemia; F32.9 Major depressive disorder, single episode, unspecified; K21.0 Gastro-esophageal reflux disease with esophagitis; E78.5 Hyperlipidemia, unspecified
CPT/HCPCS: 36415; 80053; 93005; 96361; 96374; 99215; 99223; 99225; 99239; 99255; 99291; 71045; 83735; 83880; 84443; 84484; 85025; 85610; 85730; 93010; 99217; 99220; J2704; J3475

== ENCOUNTER 2019-09-11 10:46 | Outpatient (CLI) | payer MEDICARE, OTHER, SELFPAY ==
[2019-09-11 13:48] LABS: Hemoglobin A1C 7.5 % (3.8-5.6)
[2019-09-11 13:50] LABS: ALT 15 U/L (14-59); AST 15 U/L (15-37); Albumin 3.7 g/dL (3.4-5.0); Alkaline Phosphatase 59 U/L (46-116); Anion Gap 11.5 mmol/L (3-11); BUN 34 mg/dL (7-18); Bilirubin, Total 0.3 mg/dL (0.2-1.0); CO2 26.5 mmol/L (21.0-32.0); CREATININE 1.03 mg/dL (0.55-1.02); Calcium 9.6 mg/dL (8.5-10.1); Chloride 104 mmol/L (98-107); Cholesterol 201 mg/dL (<200); Estimated GFR 51.69 (mL/min/1.73m2); Glucose 116 mg/dL (74-106); HDL Cholesterol 33 mg/dL (40-60); Magnesium 1.5 mg/dL (1.8-2.4); Potassium 4.2 mmol/L (3.5-5.1); Sodium 142 mmol/L (136-145); Total Protein 6.7 g/dL (6.4-8.2); Triglyceride 522 mg/dL (<150)
[2019-09-11 14:01] LABS: TSH (W/Ref FT4) < 0.01 uIU/mL (0.36-3.74)
[2019-09-11 14:22] LABS: FREE T4 1.84 ng/dL (0.76-1.46)
[2019-09-11 14:23] LABS: LDL CHOLESTEROL 93 mg/dL (<100)
[2019-09-12 17:01] LABS: T3,Free 5.3 pg/mL (2.8-5.3)
[2019-09-12 17:15] LABS: T3, Total 149 ng/dL (97-169)
[2019-09-13 11:13] LABS: Thyroglobulin Antibody <15 U/mL (<=60)
[2019-09-21 17:31] LABS: Thyroid Stimulating Immunoglob <1.0 TSI index (<=1.3)
== END 2019-09-11 11:06 ==
PROVIDERS: PCP Family Medicine; Visit Provider Family Medicine
DX: F32.9 Major depressive disorder, single episode, unspecified; I48.91 Unspecified atrial fibrillation; R06.02 Shortness of breath; R73.09 Other abnormal glucose; E05.90 Thyrotoxicosis, unspecified without thyrotoxic crisis or storm; N25.9 Disorder resulting from impaired renal tubular function, unspecified
CPT/HCPCS: 36415; 80053; 80061; 83721; 83036; 83735; 84439; 84443; 84445; 84480; 84481; 86800

== ENCOUNTER 2019-09-22 01:57 | Outpatient (CLI) | payer MEDICARE, OTHER, SELFPAY ==
[2019-09-22 12:28] LABS: TSH (W/Ref FT4) 0.01 uIU/mL (0.36-3.74)
[2019-09-22 12:45] LABS: FREE T4 1.17 ng/dL (0.76-1.46)
== END 2019-09-22 02:17 ==
PROVIDERS: PCP Family Medicine; Visit Provider Family Medicine
DX: E05.90 Thyrotoxicosis, unspecified without thyrotoxic crisis or storm (principal)
CPT/HCPCS: 36415; 84439; 84443

== ENCOUNTER 2019-10-26 08:51 | Outpatient (CLI) | payer MEDICARE, OTHER, SELFPAY | END 2019-10-26 09:11 | PROVIDERS: PCP Family Medicine; Visit Provider Internal Medicine Cardiovascular Disease | DX: I34.0 Nonrheumatic mitral (valve) insufficiency (principal); I48.91 Unspecified atrial fibrillation; I10 Essential (primary) hypertension | CPT/HCPCS: 99204; 99215; 93005; 93010 ==

== ENCOUNTER 2019-12-06 01:08 | Outpatient (CLI) | payer MEDICARE, OTHER, SELFPAY ==
--- NOTE | 2019-12-06 10:26 | DI.US_ITS ---
APPROVED REPORT EXAM: Comprehensive 2D, Doppler, and color-flow Echocardiogram Patient Location: Out-Patient Car Rental Sales Assistant: Lindsay Chamorro RDCS (AE) Indications: Mitral regurgitation, Atrial fibrillation, Cardiomyopathy Other Information Study Quality: Good Conclusion The patient is in normal sinus rhythm with a heart rate of 62. Left Ventricle : The left ventricle is normal size. The left ventricular systolic function is normal. The left ventricular ejection fraction is within the normal range. There is normal left ventricular wall thickness. There is normal LV segmental wall motion. Transmitral Doppler flow pattern suggests i mpaired LV relaxation. LVEF is 45-50%. Right Ventricle : The right ventricle is normal size. The right ventricular systolic function is norm al. The RVSP is 22.6mmHg. Atria : The left atrium size is normal. The right atrium size is normal. Valves: There is mild mitral regurgitation. Please see remainder of study for additional results. Compared to echocardiogram from [facility] dated 08/22/2019: The patient's ejection fraction has increased from 35% to 45-50%. The patient's mitral regurgitation is also improved from a moderat e to severe to now mild. Wall motion Left Ventricle The left ventricle is normal size. The left ventricular systolic function is normal. The left ventric ular ejection fraction is within the normal range. There is normal left ventricular wall thickness. T here is normal LV segmental wall motion. Transmitral Doppler flow pattern suggests impaired LV relaxa tion. There is no ventricular septal defect visualized. LVEF is 45-50%. Right Ventricle The right ventricle is normal size. The right ventricular systolic function is normal. The RVSP is 22 .6mmHg. Atria The left atrium size is normal. The right atrium size is normal. The interatrial septum is intact wit h no evidence for an atrial septal defect. Aortic Valve The Aortic valve is sclerotic. Aortic valve is trileaflet. No hemodynamically significant valvular ao rtic stenosis. No aortic regurgitation is present. Mitral Valve There is mitral annular calcification. No evidence of mitral valve stenosis. Mild mitral regurgitatio n. Tricuspid Valve The tricuspid valve is normal in structure. There is no tricuspid valve stenosis. Trace to mild tricu spid regurgitation. Pulmonic Valve The pulmonary valve is normal in structure. There is no pulmonic valvular stenosis. Trace pulmonic re gurgitation. Great Vessels The aortic root is normal in size. The ascending aorta is normal in size. Pericardium There is no pericardial effusion. 2D Dimensions IVSD d PLAX 1.00 cm F: 0.6-1.0 LV Vol A2C d MOD 67.2 mL LVPW d PLAX 1.02 cm F: 0.6 - 1.0 LV Vol A4C d MOD 83.5 mL LVID d PLAX 4.71 cm F: 3.8 - 5.2 LA vol/ BSA A2C s A-L 52.5 mL/m2 LVDs 2.90 cm F: 2.2 - 3.5 LA vol/ BSA A4C s A-L 40.2 mL/m2 Ao Root d 2.49 cm F: 2.7 - 3.3 LA Vol/ BSA Biplane s A-L 47.2 mL/m2 RA Area A4C 17.99 cm2 LA Area A4C s MOD 24.08 cm2 RA Vol/ BSA A4C s A-L 26.9 mL/m2 LA Area A2C s MOD 26.76 cm2 Ao Asc Diam d 3.13 cm F: 2.3 - 3.1 LV EF A4C MOD 50.1 % LV EF Teichholz 67.4 % LV EF A2C MOD 45.5 % LVEF (Angulo's) 44.86 % F: 54 - 74 LV EF Biplane MOD 44.9 % LV Volume 58.36 mL F: 46 - 106 SV 34.02 mL LV Volume Index 31.54 mL/m2 F: 29 - 61 SV Index 18.34 mL/m2 LV Vol Biplane MOD 75.8 mL FS 37.35 % M-Mode TAPSE 2.17 cm (M/F) >1.7 LV Diastology MV E' medial 0.054 (>0.07 m/s) E/A Ratio 0.7 LV E/e MED 10.90 (<14) MV E Vmax 0.59 (0.4-1.3 m/s) MV E' lateral 0.071 (>0.1 m/s) MV A Vmax 0.85 (0.4-1.3 m/s) LV E/e LAT 8.25 (<14) MV E/A Ratio 0.68 MV E/E' medial 10.91 MV E/E' lateral 8.28 Aortic Valve LVOT Area 3.74 cm2 AoV Area Vmax 1.75 cm2 LVOT Vmax 0.93 m/s AoV Area/ BSA (Vmax) 0.94 cm2/m2 LVOT Mean Kishore. 0.59 m/s DESTINY Mean Kishore. 1.54 cm2 LVOT Peak Grad 3.5 mmHg DESTINY Mean Kishore. Index 0.83 cm2/m2 LVOT Mean Grad 1.6 mmHg LVOT VTI 0.195 m LVOT Diam s 2.15 cm AoV Vmax 1.99 m/s Velocity Ratio 0.46 AoV Mean Kishore. 1.43 m/s AoV Peak Grad 15.8 mmHg LVOT SV 72.84 mL AoV Mean Grad 8.7 mmHg AoV VTI 0.350 m AoV Area VTI 2.08 cm2 AoV Area/ BSA (VTI) 1.12 cm/m2 Mitral Valve MV DT 390 (160-240 msec) MR Vmax 3.11 m/s MV PHT 113 msec MR VTI 1.175 m MV Area PHT 1.95 cm2 MR Peak Grad 38.8 mmHg MR Mean Grad 29.0 mmHg Pulmonary Valve PV Vmax 1.15 (0.5-1.5 m/s) RVOT Peak Gr. 1.18 mmHg PV Peak Grad 5.3 mmHg RVOT Mean Gr. 0.60 mmHg PV Mean Grad 3.0 mmHg RVOT VTI 0.125 m PV VTI 0.200 m RVOT Vmax 0.54 m/s Tricuspid Valve TR Peak Grad 19.6 mmHg TR Vmax 2.22 m/s RA Pressure 3.00 mmHg RVSP (TR) 22.6 mmHg
== END 2019-12-06 01:28 ==
PROVIDERS: PCP Family Medicine; Visit Provider Internal Medicine Cardiovascular Disease
DX: I48.91 Unspecified atrial fibrillation (principal); I42.8 Other cardiomyopathies; I34.0 Nonrheumatic mitral (valve) insufficiency; I10 Essential (primary) hypertension
CPT/HCPCS: 93306

== ENCOUNTER 2019-12-12 05:05 | Outpatient (CLI) | payer MEDICARE, OTHER, SELFPAY ==
[2019-12-12 13:56] LABS: Abs Immature Grans 0.02 k/cumm (0.0-0.09); Absolute Basophil Count 0.01 k/cumm (0.0-0.2); Absolute Eosinophil Count 0.14 k/cumm (0.0-0.7); Absolute Lymphocyte Count 1.74 k/cumm (1.2-3.4); Absolute Monocyte Count 0.45 k/cumm (0.11-0.7); Absolute Neutrophil Count 3.88 k/cumm (1.2-6.7); Basophils % 0.2; Eosinophils % 2.2; HCT 40.3 % (36.0-46.0); HGB 12.9 g/dL (12.0-15.5); Immature Grans % 0.3 %; Lymphocytes % 27.9; Mean Corpuscular Hemoglobin 29.1 pg (27.0-33.0); Mean Corpuscular Volume 90.8 fL (80-95); Mean Platelet Volume 10.4 fL (8.0-11.0); Monocytes % 7.2; Neutrophils % 62.2; Platelet Count 202 x1000/uL (130-400); RBC 4.44 m/cumm (4.00-5.20); RBC Distribution Width 14.8 % (11.7-14.6); White Blood Cell Count 6.24 k/cumm (4.4-10.8)
[2019-12-12 14:05] LABS: Hemoglobin A1C 6.7 % (3.8-5.6)
[2019-12-12 14:47] LABS: ALT 9 U/L (14-59); AST 26 U/L (15-37); Alkaline Phosphatase 82 U/L (46-116); BUN 31 mg/dL (7-18); Bilirubin, Total 0.3 mg/dL (0.2-1.0); CREATININE 1.17 mg/dL (0.55-1.02); Calcium 9.2 mg/dL (8.5-10.1); Chloride 99 mmol/L (98-107); Cholesterol 278 mg/dL (<200); Estimated GFR 44.62 (mL/min/1.73m2); Glucose 105 mg/dL (74-106); HDL Cholesterol 42 mg/dL (40-60); Potassium 4.4 mmol/L (3.5-5.1); Sodium 133 mmol/L (136-145); TSH (W/Ref FT4) 1.19 uIU/mL (0.36-3.74); Total Protein 7.5 g/dL (6.4-8.2); Triglyceride 463 mg/dL (<150)
[2019-12-12 14:58] LABS: LDL CHOLESTEROL 157 mg/dL (<100)
[2019-12-22 15:36] LABS: Indication for Study CML
[2019-12-22 15:37] LABS: BCR-ABL1 p210 FusionTranscript See Comments; Specimen Type Peripheral blood
[2019-12-22 15:38] LABS: Limitations and Disclaimers See Comments
[2019-12-22 15:44] LABS: BCR-ABL1 Interpretation See Comments
== END 2019-12-12 05:25 ==
PROVIDERS: PCP Family Medicine; Visit Provider Family Medicine
DX: C92.10 Chronic myeloid leukemia, BCR/ABL-positive, not having achieved remission (principal); E11.9 Type 2 diabetes mellitus without complications; E04.2 Nontoxic multinodular goiter; I42.9 Cardiomyopathy, unspecified; I48.91 Unspecified atrial fibrillation; N25.9 Disorder resulting from impaired renal tubular function, unspecified
CPT/HCPCS: 36415; 80053; 80061; 81206; 83721; 83036; 84443; 85025

== ENCOUNTER → 2020-01-30 10:01 | Outpatient (BNVA) | payer MEDICARE, OTHER, SELFPAY | PROVIDERS: PCP Family Medicine; Referring Provider Family Medicine; Visit Provider Internal Medicine Cardiovascular Disease | DX: I34.0 Nonrheumatic mitral (valve) insufficiency (principal); I10 Essential (primary) hypertension; I48.91 Unspecified atrial fibrillation; I42.9 Cardiomyopathy, unspecified; M54.2 Cervicalgia; Z79.01 Long term (current) use of anticoagulants | CPT/HCPCS: 99214 ==

== ENCOUNTER 2020-02-27 13:32 | Outpatient (CLI) | payer MEDICARE, OTHER, SELFPAY ==
[2020-02-27 14:06] VITALS: BP 110/78; PULSE 73; RESP 17; TEMP 36.5; O2SAT 95
[2020-02-27] MEDS: Lactated Ringers 1,000 ML 80 ML IV (14:42)
[2020-02-27] MEDS: Midazolam 2 MG/2 ML VIAL IVP (14:59)
[2020-02-27] MEDS: fentaNYL 100 MCG/2 ML VIAL IVP (14:59)
[2020-02-27 15:43] VITALS: BP 118/55; PULSE 76; RESP 17; O2SAT 100
--- NOTE | 2020-02-27 15:45 | DI.RAD_ITS ---
EXAM: XR PAIN CLINIC CERVICAL SP 2V CLINICAL HISTORY: Dx: Cervical Spondylosis,CERVICAL RADIOFREQUENCY ABLATION TECHNIQUE: Fluoroscopy was provided for the referring physician for guidance with performing injecti on procedure. COMPARISON: No exams were available for comparison FINDINGS: Please see procedure note for details. Fluoro time: 128.1 seconds RADIATION DOSE DELIVERED:
--- NOTE | 2020-02-27 15:53 | PDOC.PAIN ---
Pain Clinic Procedure Note Procedure Note Procedure Note: Cervical Radiofrequency with Coolief Machine PROCEDURE NOTE Date of Service: February 27, 2020 Patient: BOYD HOLLOWAY Provider: Donnie Fletcher Pre Operative Diagnosis: cervical spondylosis Post Operative Diagnosis: same as above Comment: patient received pain relief from prior coolief procedure, with 100% pain relief for 4.5 months and then pain slowly started to return. she now has new pain that radiates posterior neck to her head and causes headache. I will add C3 to cover the third occipital nerve. PROCEDURE: 1. C4-5 facet joint radiofrequency denervation 2. C5-6 facet joint radiofrequency denervation 3. C3-4 facet joint radiofrequency denervation BOYD HOLLOWAY was brought to the operating room and placed on the exam table in a comfortable prone position. The place for the needle placement was obtained by manual palpation as well as radiographic confirmation. The sterile field was prepped by chlorhexidine and sterile drapes. Local anesthesia, both superficial and deep was provided by local infiltration of 10 ml Lidocaine 1%. Using fluoroscopic guidance, A 17g 50mm radiofrequency introducer needle with a 2 mm active tip was placed overlying the left C4 cervical vertebra from the posterior approach and was advanced until bony contact was felt with the articular pillar. The needle was walked off the pillar, maintaining contact with the bone. Attempted aspiration revealed no blood or cerebrospinal fluid. Radiographs were then made in AP and lateral. Motor testing was then performed with 2.0 volts and no upper extremity motor stimulation was observed. 1 cc of the 2% Lidocaine was injected through the RF needle. A radiofrequency lesion of the left medial branch of C4 was then performed at 80 degrees Celsius for 2 minutes and 30 seconds.Post RF lesion, patient received 0.3cc of 15mg of dex mixed with 2cc of 0.5% bupivocaine at each site. The same procedure was repeated for left C3, C5 and C6 medial branches. POST PROCEDURE EVALUATION: patient tolerated procedure without issue. She received a total of 0.5mg of IV Versed and 25mcg of IV Fentanyl. Follow up plans and appointments were discussed with the BOYD . Post procedure instruction was given as documented in nursing documentation and having met discharge criteria, BODY was discharged from the [facility]. COMMENTS: No complications. F/U with our office as needed. I personally performed this entire procedure. Donnie Fletcher MD Attending Physician
[2020-02-27] MEDS: Bupivacaine 0.5% Pres-Free 10 ML VIAL IJ (15:56)
[2020-02-27] MEDS: Lidocaine 2% Pres-Free 5 ML VIAL IJ (15:57)
[2020-02-27] MEDS: Dexamethasone Sod. Phos./Pres-Free 10 MG/ML VIAL IJ (15:59)
[2020-02-27] MEDS: Lidocaine 1% Pres-Free 30 ML VIAL IJ (15:59)
== END 2020-02-27 13:52 ==
PROVIDERS: PCP Family Medicine; Visit Provider Internal Medicine
DX: M47.812 Spondylosis without myelopathy or radiculopathy, cervical region (principal)
CPT/HCPCS: 64633; 64634; 72040; J2250; J3010

== ENCOUNTER → 2020-04-26 09:21 | Outpatient (BNVA) | payer MEDICARE, OTHER, SELFPAY | PROVIDERS: PCP Family Medicine; Referring Provider Family Medicine; Visit Provider Internal Medicine Cardiovascular Disease | DX: I48.91 Unspecified atrial fibrillation (principal); I12.9 Hypertensive chronic kidney disease with stage 1 through stage 4 chronic kidney disease, or unspecified chronic kidney disease; N18.9 Chronic kidney disease, unspecified; Z79.899 Other long term (current) drug therapy | CPT/HCPCS: 99214 ==

== ENCOUNTER 2020-06-13 21:40 | Outpatient (REF) | payer MEDICARE, OTHER, SELFPAY ==
[2020-06-13 22:04] LABS: Hemoglobin A1C 6.7 % (<5.7)
== END 2020-06-13 22:00 ==
LOC: NCHCN 21:40
PROVIDERS: PCP Family Medicine; Visit Provider Family Medicine
DX: E11.9 Type 2 diabetes mellitus without complications (principal)
CPT/HCPCS: 80053; 83036; 84443

== ENCOUNTER 2020-06-19 03:20 | Outpatient (CLI) | payer MEDICARE, OTHER, SELFPAY ==
[2020-06-19 13:01] LABS: Hemoglobin A1C 6.6 % (<5.7)
[2020-06-19 13:22] LABS: ALT 14 U/L (14-59); AST 19 U/L (15-37); Albumin 3.9 g/dL (3.4-5.0); Alkaline Phosphatase 80 U/L (46-116); Anion Gap 13.6 mmol/L (3-11); BUN 23 mg/dL (7-18); Bilirubin, Total 0.3 mg/dL (0.2-1.0); CO2 23.4 mmol/L (21.0-32.0); CREATININE 1.15 mg/dL (0.55-1.02); Calcium 9.2 mg/dL (8.5-10.1); Chloride 100 mmol/L (98-107); Estimated GFR 45.52 (mL/min/1.73m2); Glucose 125 mg/dL (74-106); Potassium 4.6 mmol/L (3.5-5.1); Sodium 137 mmol/L (136-145); TSH (W/Ref FT4) 0.75 uIU/mL (0.36-3.74); Total Protein 7.2 g/dL (6.4-8.2)
== END 2020-06-19 03:40 ==
PROVIDERS: PCP Family Medicine; Visit Provider Family Medicine
DX: E11.9 Type 2 diabetes mellitus without complications (principal); F32.9 Major depressive disorder, single episode, unspecified
CPT/HCPCS: 36415; 80053; 83036; 84443

== ENCOUNTER 2020-07-16 03:34 | Outpatient (CLI) | payer MEDICARE, OTHER, SELFPAY ==
[2020-07-16 10:26] LABS: Abs Immature Grans 0.03 10^3/uL (0.0-0.06); Absolute Basophil Count 0.03 10^3/uL (0.0-0.2); Absolute Eosinophil Count 0.18 10^3/uL (0.0-0.7); Absolute Lymphocyte Count 1.11 10^3/uL (1.2-3.4); Absolute Monocyte Count 0.33 10^3/uL (0.1-0.8); Basophils % 0.6; Eosinophils % 3.5; HCT 41.1 % (36.0-46.0); Immature Grans % 0.6; Lymphocytes % 21.9; MCH 29.6 pg (27.0-33.0); MCHC 31.6 % (32.0-36.0); MCV 93.6 fL (80-95); MPV 10.5 fL (8.0-11.0); Monocytes % 6.5; Neutrophils % 66.9; Nucleated RBC 0 %; Platelet Count 174 10^3/uL (130-400); RBC 4.39 10^6/uL (3.93-5.22); RDW 12.9 % (11.7-14.6); RDW-SD 44.2 fL; WBC 5.08 10^3/uL (4.4-10.8)
[2020-07-16 10:45] LABS: ALT 15 U/L (14-59); AST 17 U/L (15-37); Albumin 3.5 g/dL (3.4-5.0); Alkaline Phosphatase 76 U/L (46-116); Anion Gap 9.2 mmol/L (3-11); BUN 24 mg/dL (7-18); Bilirubin, Total 0.4 mg/dL (0.2-1.0); CO2 25.8 mmol/L (21.0-32.0); Calcium 9.3 mg/dL (8.5-10.1); Chloride 101 mmol/L (98-107); Estimated GFR 47.91 (mL/min/1.73m2); Glucose 127 mg/dL (74-106); Potassium 3.9 mmol/L (3.5-5.1); Sodium 136 mmol/L (136-145); Total Protein 7.3 g/dL (6.4-8.2)
[2020-07-26 10:05] LABS: Indication for Study CML
[2020-07-26 10:07] LABS: Specimen Type Blood
[2020-07-26 10:08] LABS: BCR-ABL1 p210 FusionTranscript See Comments; Limitations and Disclaimers See Comments
[2020-07-26 10:14] LABS: BCR-ABL1 Interpretation See Comments
== END 2020-07-16 03:54 ==
PROVIDERS: PCP Family Medicine; Visit Provider Internal Medicine Hematology & Oncology
DX: C92.10 Chronic myeloid leukemia, BCR/ABL-positive, not having achieved remission (principal)
CPT/HCPCS: 36415; 80053; 81206; 85025

== ENCOUNTER → 2020-10-17 13:18 | Outpatient (BNVA) | payer MEDICARE, OTHER, SELFPAY | PROVIDERS: PCP Family Medicine; Referring Provider Family Medicine; Visit Provider Internal Medicine Cardiovascular Disease | DX: I34.0 Nonrheumatic mitral (valve) insufficiency (principal); I48.91 Unspecified atrial fibrillation; Z79.01 Long term (current) use of anticoagulants | CPT/HCPCS: 99214 ==

== ENCOUNTER 2020-12-11 10:25 | Outpatient (CLI) | payer MEDICARE, OTHER, SELFPAY ==
--- NOTE | 2020-12-11 10:30 | RT.EKG_ITS ---
APPROVED REPORT Exam: Resting ECG Reason for Exam: post ablation Patient Location: O HR:86 bpm ECG Measurements Heart Rate 86 AXIS FL 162 P 63 QRSd 87 QRS -38 QT 375 T 67 QTc 449 Conclusion Sinus rhythm...normal P axis, V-rate 50- 99 Ventricular premature complex...V complex w/ short R-R interval LVH with secondary repolarization abnormality...multi-LVH criteria, abnrm ST-T
== END 2020-12-11 10:26 | disposition home or self-care (01) ==
LOC: DI.CARD 10:32
PROVIDERS: PCP Family Medicine; Referring Provider Family Medicine; Visit Provider Internal Medicine Cardiovascular Disease
DX: I48.91 Unspecified atrial fibrillation (principal); I34.0 Nonrheumatic mitral (valve) insufficiency
CPT/HCPCS: 93010

== ENCOUNTER → 2020-12-11 10:25 | Outpatient (BNVA) | payer MEDICARE, OTHER, SELFPAY | PROVIDERS: PCP Family Medicine; Referring Provider Family Medicine; Visit Provider Internal Medicine Cardiovascular Disease | DX: I34.0 Nonrheumatic mitral (valve) insufficiency (principal); Z98.890 Other specified postprocedural states; Z79.01 Long term (current) use of anticoagulants | CPT/HCPCS: 93005; 99214 ==

== ENCOUNTER 2020-12-12 02:08 | Outpatient (CLI) | payer MEDICARE, OTHER, SELFPAY ==
--- NOTE | 2020-12-12 | DI.US_ITS ---
Exam(s) US THYROID EXAM: US THYROID CLINICAL HISTORY: THYROID NODULE, E04.1. TECHNIQUE: Ultrasound thyroid performed using standard protocol. COMPARISON: US US thyroid from 10/27/2018 US US thyroid from 10/27/[address] CHEST PE CTA from 08/16/2019 FINDINGS: ISTHMUS: 3 mm RIGHT LOBE: Size: 4.8 x 1.9 x 2 cm Echogenicity: Normal. Vascularity: Normal. Nodules: There is a 3.4 x 1.9 x 2.1 cm solid nodule in the inferior pole. It is hypoechoic with macr ocalcifications present. It is consistent with a TI-RADS level 4 nodule. This was present on the pr ior ultrasound from 10/27/2018. LEFT LOBE: Size: 4.1 x 1.9 x 1.9 cm Echogenicity: Normal. Vascularity: Normal. Nodules: There is a 0.9 x 1 x 1.1 cm solid isoechoic nodule in the inferior pole. This is unchanged in size compared to the prior examination. Macrocalcifications are identified internally. This is c onsistent with TI-RADS level 4 nodule. OTHER FINDINGS: Small less than 5 mm cysts are seen in the left lobe. IMPRESSION: Multinodular thyroid gland as described. DATA REPOSITORY:
== END 2020-12-12 02:28 ==
PROVIDERS: PCP Family Medicine; Visit Provider Otolaryngology
DX: E04.2 Nontoxic multinodular goiter (principal); M54.5 Low back pain; M79.604 Pain in right leg; M79.605 Pain in left leg; M51.37 Other intervertebral disc degeneration, lumbosacral region; Z98.890 Other specified postprocedural states
CPT/HCPCS: 72110; 76536

== ENCOUNTER 2020-12-12 02:08 | Outpatient (CLI) | payer MEDICARE, OTHER, SELFPAY ==
--- NOTE | 2020-12-12 07:00 | DI.RAD_ITS ---
Exam(s) XR LUMBAR SPINE COMPLETE EXAM: XR LUMBAR SPINE COMPLETE CLINICAL HISTORY: LBP and leg pain; s/p surgeries,m51.16,intervertebral disc disease with. TECHNIQUE: 2D digital imaging was performed. COMPARISON: CR XR DEXA BONE DENSITY W/WO FRANCESCA from 05/08/2019 FINDINGS: There are 5 lumbar type vertebral bodies. There is a mild left convex curvature of the thoracolumbar spine. There is again seen posterior spinal surgery at L5-S1. There is disc space narrowing at L2- L3 and L3-L4. There are endplate osteophytes at multiple levels of the lumbar spine. No acute fract ure or subluxation. Degenerative changes of the facets are seen. Atherosclerosis is present. There are surgical clips in the right upper quadrant of the abdomen which may reflect prior cholecystectom y. IMPRESSION: 1. Stable postsurgical changes at L5-S1. 2. Moderate degenerative changes throughout the lumbar spine. DATA REPOSITORY: RADIATION DOSE DELIVERED:
== END 2020-12-12 02:28 ==
PROVIDERS: PCP Family Medicine; Visit Provider Family Medicine
DX: M54.5 Low back pain (principal); M79.604 Pain in right leg; M79.605 Pain in left leg; M51.37 Other intervertebral disc degeneration, lumbosacral region; Z98.890 Other specified postprocedural states
CPT/HCPCS: 72110

== ENCOUNTER 2021-01-08 03:28 | Outpatient (CLI) | payer MEDICARE, OTHER, SELFPAY ==
[2021-01-08 15:40] LABS: COMMENT (LAB VIEW ONLY) 56.73 mg/dL; Microalb ug/mg Crea 7.6 ug/mg Cr
[2021-01-08 15:58] LABS: TSH (W/Ref FT4) 0.62 uIU/mL (0.36-3.74)
== END 2021-01-08 03:29 | disposition home or self-care (01) ==
PROVIDERS: PCP Family Medicine; Visit Provider Family Medicine
DX: E11.9 Type 2 diabetes mellitus without complications (principal); E04.1 Nontoxic single thyroid nodule; E07.9 Disorder of thyroid, unspecified
CPT/HCPCS: 36415; 82043; 82570; 83036; 84443

== ENCOUNTER → 2021-01-21 11:34 | Outpatient (BNVA) | payer MEDICARE, OTHER, SELFPAY | PROVIDERS: PCP Family Medicine; Referring Provider Family Medicine; Visit Provider Internal Medicine Cardiovascular Disease | DX: I34.0 Nonrheumatic mitral (valve) insufficiency (principal); I48.91 Unspecified atrial fibrillation; I42.8 Other cardiomyopathies; Z98.890 Other specified postprocedural states; Z79.899 Other long term (current) drug therapy | CPT/HCPCS: 99214 ==

== ENCOUNTER 2021-02-06 04:09 | Outpatient (CLI) | payer MEDICARE, OTHER, SELFPAY ==
[2021-02-06 12:31] LABS: Abs Immature Grans 0.02 10^3/uL (0.0-0.06); Absolute Basophil Count 0.02 10^3/uL (0.0-0.2); Absolute Lymphocyte Count 1.57 10^3/uL (1.2-3.4); Absolute Monocyte Count 0.44 10^3/uL (0.1-0.8); Absolute Neutrophil Count 3.96 10^3/uL (1.2-6.7); Basophils % 0.3; Eosinophils % 3.2; HCT 41.7 % (36.0-46.0); HGB 13.3 g/dL (11.2-15.7); Immature Grans % 0.3; Lymphocytes % 25.3; MCHC 31.9 % (32.0-36.0); MPV 11.2 fL (8.0-11.0); Monocytes % 7.1; Neutrophils % 63.8; Nucleated RBC 0 %; Platelet Count 190 10^3/uL (130-400); RBC 4.58 10^6/uL (3.93-5.22); RDW 13.8 % (11.7-14.6); RDW-SD 46.5 fL; WBC 6.21 10^3/uL (4.4-10.8)
[2021-02-06 12:58] LABS: ALT 17 U/L (14-59); AST 23 U/L (15-37); Albumin 4.1 g/dL (3.4-5.0); Alkaline Phosphatase 71 U/L (46-116); Anion Gap 10.4 mmol/L (3-11); BUN 20 mg/dL (7-18); Bilirubin, Total 0.3 mg/dL (0.2-1.0); CO2 27.6 mmol/L (21.0-32.0); CREATININE 1.1 mg/dL (0.55-1.02); Calcium 9.4 mg/dL (8.5-10.1); Chloride 103 mmol/L (98-107); Estimated GFR 47.79 (mL/min/1.73m2); Glucose 149 mg/dL (74-106); Potassium 4.2 mmol/L (3.5-5.1); Sodium 141 mmol/L (136-145); Total Protein 7.3 g/dL (6.4-8.2)
[2021-02-06 13:05] LABS: Hemoglobin A1C 7.1 % (<5.7)
[2021-02-12 11:12] LABS: Indication for Study CML
[2021-02-12 11:13] LABS: BCR-ABL1 p210 FusionTranscript See Comments; Specimen Type Peripheral blood
[2021-02-12 11:14] LABS: BCR-ABL1 Interpretation See Comments; Limitations and Disclaimers See Comments
== END 2021-02-06 04:10 | disposition home or self-care (01) ==
LOC: LBO 04:09
PROVIDERS: PCP Family Medicine; Visit Provider Internal Medicine Hematology & Oncology
DX: C92.10 Chronic myeloid leukemia, BCR/ABL-positive, not having achieved remission (principal); E11.9 Type 2 diabetes mellitus without complications
CPT/HCPCS: 36415; 80053; 81206; 83036; 85025

== ENCOUNTER 2021-03-24 02:53 | Outpatient (CLI) | payer MEDICARE, OTHER, SELFPAY ==
--- NOTE | 2021-03-24 13:55 | DI.US_ITS ---
APPROVED REPORT EXAM: Comprehensive 2D, Doppler, and color-flow Echocardiogram Patient Location: Out-Patient Care Nurse Rn: Lindsay Chamorro RDCS (AE) Indications: Non rheumatic mitral valve insufficiency Other Information Study Quality: Adequate Conclusion Left Ventricle : The left ventricle is normal size. The left ventricular systolic function is normal. The left ventricular ejection fraction is within the normal range. Mild concentric left ventricular hypertrophy. There is normal LV segmental wall motion. The left ventricular diastolic function is nor mal. LVEF is 57%. Right Ventricle : The right ventricle is normal size. The right ventricular systolic function is norm al. The RVSP is 24.3 mmHg. Atria : The left atrium size is normal. The right atrium size is normal. Mitral Valve : Mild mitral annular calcification. Mild to moderate mitral regurgitation. No evidence of mitral valve stenosis. Great Vessels : The aortic root is normal in size. The ascending aorta is normal in size. IVC is norm al in size and collapses >50% with inspiration. Please see remainder of study for further details. Wall motion Left Ventricle The left ventricle is normal size. The left ventricular systolic function is normal. The left ventric ular ejection fraction is within the normal range. Mild concentric left ventricular hypertrophy. Ther e is normal LV segmental wall motion. The left ventricular diastolic function is normal. There is no ventricular septal defect visualized. LVEF is 57%. Right Ventricle The right ventricle is normal size. The right ventricular systolic function is normal. The RVSP is 24 .3 mmHg. Atria The left atrium size is normal. The right atrium size is normal. The interatrial septum is intact wit h no evidence for an atrial septal defect. Aortic Valve The Aortic valve is sclerotic. Aortic valve is trileaflet. There is no aortic valvular stenosis. No a ortic regurgitation is present. Mitral Valve Mild mitral annular calcification. No evidence of mitral valve stenosis. Mild to moderate mitral regu rgitation. Tricuspid Valve The tricuspid valve is normal in structure. There is no tricuspid valve stenosis. Trace tricuspid reg urgitation. Pulmonic Valve The pulmonary valve is normal in structure. There is no pulmonic valvular stenosis. There is no pulmo umesh valvular regurgitation. Great Vessels The aortic root is normal in size. The ascending aorta is normal in size. IVC is normal in size and c ollapses >50% with inspiration. Pericardium There is no pericardial effusion. 2D Dimensions IVSD d PLAX 1.16 cm F: 0.6-1.0 LV Vol A2C d MOD 128.5 mL LVPW d PLAX 1.10 cm F: 0.6 - 1.0 LV Vol A4C d MOD 76.9 mL LVID d PLAX 4.31 cm F: 3.8 - 5.2 LA vol/ BSA A4C s A-L 35.3 mL/m2 LVDs 3.10 cm F: 2.2 - 3.5 LA Area A4C s MOD 21.69 cm2 Ao Root d 2.75 cm F: 2.7 - 3.3 LV EF A4C MOD 56.9 % RA Area A4C 13.03 cm2 LV EF A2C MOD 57.8 % RA Vol/ BSA A4C s A-L 17.9 mL/m2 LV EF Biplane MOD 55.1 % Ao Asc Diam d 3.08 cm F: 2.3 - 3.1 SV 54.80 mL LV EF Teichholz 54.3 % SV Index 28.97 mL/m2 LVEF (Angulo's) 55.07 % F: 54 - 74 LV Volume 76.06 mL F: 46 - 106 LV Volume Index 40.24 mL/m2 F: 29 - 61 LV Vol Biplane MOD 99.5 mL FS 27.85 % M-Mode TAPSE 2.08 cm (M/F) >1.7 LV Diastology MV E' medial 0.071 (>0.07 m/s) E/A Ratio 0.9 LV E/e MED 10.45 (<14) MV E Vmax 0.74 (0.4-1.3 m/s) MV E' lateral 0.094 (>0.1 m/s) MV A Vmax 0.85 (0.4-1.3 m/s) LV E/e LAT 7.85 (<14) MV E/A Ratio 0.86 MV E/E' medial 10.45 MV E/E' lateral 7.87 Aortic Valve LVOT Area 3.41 cm2 AoV Area Vmax 1.61 cm2 LVOT Vmax 0.85 m/s AoV Area/ BSA (Vmax) 0.85 cm2/m2 LVOT Mean Kishore. 0.59 m/s DESTINY Mean Kishore. 1.51 cm2 LVOT Peak Grad 2.9 mmHg DESTINY Mean Kishore. Index 0.80 cm2/m2 LVOT Mean Grad 1.6 mmHg LVOT VTI 0.160 m LVOT Diam s 2.05 cm AoV Vmax 1.81 m/s Velocity Ratio 0.46 AoV Mean Kishore. 1.33 m/s AoV Peak Grad 13.2 mmHg LVOT SV 54.59 mL AoV Mean Grad 7.9 mmHg AoV VTI 0.358 m AoV Area VTI 1.53 cm2 AoV Area/ BSA (VTI) 0.81 cm/m2 Mitral Valve MV DT 287 (160-240 msec) MR Vmax 5.01 m/s MV PHT 83 msec MR VTI 1.638 m MV Area PHT 2.64 cm2 MR Peak Grad 100.4 mmHg MV VTI 0.267 m MR Mean Grad 78.6 mmHg MV Area VTI 2.04 (4.0-6.0 cm2) MR PISA Radius 0.33 cm MR EROA 0.05 cm2 MR Aliasing Velocity 0.35 m/s MR PISA 0.69 cm2 Pulmonary Valve PV Vmax 0.85 (0.5-1.5 m/s) RVOT Peak Gr. 0.49 mmHg PV Peak Grad 2.9 mmHg RVOT Mean Gr. 0.20 mmHg PV Mean Grad 1.9 mmHg RVOT VTI 0.050 m PV VTI 0.160 m RVOT Vmax 0.35 m/s Tricuspid Valve TR Peak Grad 21.3 mmHg TR Vmax 2.31 m/s RA Pressure 3.00 mmHg RVSP (TR) 24.3 mmHg
== END 2021-03-24 03:13 ==
PROVIDERS: PCP Family Medicine; Visit Provider Internal Medicine Cardiovascular Disease
DX: I34.0 Nonrheumatic mitral (valve) insufficiency (principal)
CPT/HCPCS: 93306

== ENCOUNTER 2021-06-11 10:54 | Outpatient (CLI) | payer MEDICARE, OTHER, SELFPAY ==
--- NOTE | 2021-06-11 10:45 | RT.EKG_ITS ---
APPROVED REPORT Exam: Resting ECG Reason for Exam: afib Patient Location: O HR:89 bpm ECG Measurements Heart Rate 89 AXIS TX [id number] P [id number] QRSd 86 QRS -6 QT 364 T 27 QTc 443 Conclusion Atrial fibrillation...V-rate 86- 93, irreg A-activity Consider left ventricular hypertrophy...(R aVL+S V3) >2.20mV Baseline wander in lead(s) V3
== END 2021-06-11 10:55 | disposition home or self-care (01) ==
LOC: DI.CARD 10:56
PROVIDERS: PCP Family Medicine; Referring Provider Family Medicine; Visit Provider Internal Medicine Cardiovascular Disease
DX: I48.91 Unspecified atrial fibrillation (principal)
CPT/HCPCS: 93010

== ENCOUNTER → 2021-06-11 10:54 | Outpatient (BNVA) | payer MEDICARE, OTHER, SELFPAY | PROVIDERS: PCP Family Medicine; Referring Provider Family Medicine; Visit Provider Internal Medicine Cardiovascular Disease | DX: I48.91 Unspecified atrial fibrillation (principal); Z98.890 Other specified postprocedural states | CPT/HCPCS: 99213 ==

== ENCOUNTER 2021-07-22 02:12 | Outpatient (CLI) | payer MEDICARE, OTHER, SELFPAY ==
[2021-07-22 11:44] LABS: Abs Immature Grans 0.03 10^3/uL (0.0-0.06); Absolute Basophil Count 0.02 10^3/uL (0.0-0.2); Absolute Eosinophil Count 0.21 10^3/uL (0.0-0.7); Absolute Lymphocyte Count 1.37 10^3/uL (1.2-3.4); Absolute Monocyte Count 0.41 10^3/uL (0.1-0.8); Absolute Neutrophil Count 4.57 10^3/uL (1.2-6.7); Basophils % 0.3; Eosinophils % 3.2; HCT 40.3 % (36.0-46.0); HGB 12.5 g/dL (11.2-15.7); Immature Grans % 0.5; Lymphocytes % 20.7; MCH 28.3 pg (27.0-33.0); MCV 91.4 fL (80-95); MPV 9.6 fL (8.0-11.0); Monocytes % 6.2; Neutrophils % 69.1; Nucleated RBC 0 %; Platelet Count 176 10^3/uL (130-400); RBC 4.41 10^6/uL (3.93-5.22); RDW-SD 47.1 fL; WBC 6.61 10^3/uL (4.4-10.8)
[2021-07-22 11:51] LABS: ALT 17 U/L (14-59); AST 22 U/L (15-37); Albumin 3.7 g/dL (3.4-5.0); Alkaline Phosphatase 72 U/L (46-116); Anion Gap 9.6 mmol/L (3-11); BUN 22 mg/dL (7-18); Bilirubin, Total 0.4 mg/dL (0.2-1.0); CO2 26.4 mmol/L (21.0-32.0); CREATININE 1.1 mg/dL (0.55-1.02); Calcium 9.2 mg/dL (8.5-10.1); Chloride 103 mmol/L (98-107); Estimated GFR 47.79 (mL/min/1.73m2); Glucose 203 mg/dL (74-106); Sodium 139 mmol/L (136-145); Total Protein 7.7 g/dL (6.4-8.2)
[2021-07-31 13:25] LABS: Indication for Study CML
[2021-07-31 13:26] LABS: BCR-ABL1 p210 FusionTranscript See Comments; Specimen Type Blood
[2021-07-31 13:27] LABS: BCR-ABL1 Interpretation See Comments; Limitations and Disclaimers See Comments
== END 2021-07-22 02:13 | disposition home or self-care (01) ==
LOC: LBO 02:14
PROVIDERS: PCP Family Medicine; Visit Provider Internal Medicine Hematology & Oncology
DX: C92.10 Chronic myeloid leukemia, BCR/ABL-positive, not having achieved remission (principal); I34.0 Nonrheumatic mitral (valve) insufficiency; Z86.79 Personal history of other diseases of the circulatory system; Z79.01 Long term (current) use of anticoagulants
CPT/HCPCS: 36415; 80053; 81206; 85025; 99213

== ENCOUNTER 2021-07-29 09:04 | Outpatient (CLI) | payer MEDICARE, OTHER, SELFPAY ==
--- NOTE | 2021-07-29 08:07 | DI.RAD_ITS ---
Exam(s) XR SACROILIAC JOINTS EXAM: XR SACROILIAC JOINTS CLINICAL HISTORY: r SI pain, sacrococcygeal disorders, M53.3. TECHNIQUE: 2D digital imaging was performed. COMPARISON: No exams were available for comparison FINDINGS: There is fusion hardware at L5-S1 level. Sacroiliac joints appear unremarkable. No radiographic renard dence of sacroiliitis and no ankylosis evident. No osseous lesions. IMPRESSION: DATA REPOSITORY: RADIATION DOSE DELIVERED:
--- NOTE | 2021-07-29 08:07 | DI.RAD_ITS ---
Exam(s) XR PELVIS AP EXAM: XR PELVIS AP CLINICAL HISTORY: cannot sit; r buttock pain, SI dysfunction, M79.18, M53.3. TECHNIQUE: 2D digital imaging was performed. COMPARISON: CR THORACIC SPINE from 02/07/2018 FINDINGS: There is posterior fusion hardware at L5-S1 level. Advanced disc space narrowing noted at the visual ized disc spaces included in the field of view here which are L3-4 and L4-5. The sacroiliac joints a ppear unremarkable. No pelvic nor hip fractures. Minimal degenerative changes in the hips. No asym metric hip joint space narrowing. No ominous osseous lesions evident. IMPRESSION: DATA REPOSITORY: RADIATION DOSE DELIVERED:
== END 2021-07-29 09:24 ==
PROVIDERS: PCP Family Medicine; Visit Provider Family Medicine
DX: M53.3 Sacrococcygeal disorders, not elsewhere classified (principal); M79.18 Myalgia, other site; M43.27 Fusion of spine, lumbosacral region
CPT/HCPCS: 72170; 72202

== ENCOUNTER 2021-08-11 00:41 | Outpatient (CLI) | payer MEDICARE, OTHER, SELFPAY ==
--- NOTE | 2021-08-11 08:25 | DI.MRI_ITS ---
Exam(s) MR LUMBAR SPINE WO/W EXAM: MR LUMBAR SPINE WO/W CLINICAL HISTORY: Low back pain, r buttock pain, previous surgery,m51.16,m79.18 TECHNIQUE: Multiplanar multisequence MRI of the Lumbar Spine was performed. CONTRAST MATERIAL: IV Contrast: 17 mL of Dotarem contrast administered. COMPARISON: CR XR LUMBAR SPINE COMPLETE from 12/12/2020 CR XR SACROILIAC JOINTS from 07/29/2021 FINDINGS: Bones: The last intervertebral disc space is designated the L5/S1 level for the numbering purpose of this examination. The vertebral body heights are well maintained. The signal characteristics are unr emarkable. There is a mild levoscoliosis. There is hardware related to posterior fusion at L5-S1 wi th a disc spacer. This creates artifact. Cord: The conus tip ends at the T12 level. It is of normal size and signal intensity. T12-L1: No disc herniations or bulges are present. L1-2: Mild disc bulging. Mild facet degenerative changes. L2-3: Mild disc bulging. Moderate facet degenerative changes. Mild right neural foraminal narrowing. L3-4: Moderate loss of disc height. Endplate osteophytes. Facet degenerative changes. Moderate bilat eral neural foraminal narrowing. L4-5: Disc osteophytes and facet degenerative changes club cause mild bilateral neural foraminal enc roachment. L5-S1: Disc spacer in place. Mild bilateral neural foraminal narrowing. Soft tissues: The visualized SI joints and sacrum are well maintained. The paraspinal soft tissues ar e unremarkable. There is no evidence of suspicious enhancement. IMPRESSION: No evidence of disc herniation. Multilevel degenerative disc changes and facet degenerative changes c ausing bilateral neural foraminal narrowing greatest at L3-4. No significant central canal stenosis. Prior posterior fusion with hardware at L5-S1. DATA REPOSITORY:
[2021-08-11] MEDS: Gadoterate meglumine 20 ML VIAL 17 ML IVP (14:04)
[2021-08-11] MEDS: Normal Saline Flush 10 ML SYR IVP (14:04)
== END 2021-08-11 01:01 ==
PROVIDERS: PCP Family Medicine; Visit Provider Family Medicine
DX: M54.59 Other low back pain (principal); Z98.1 Arthrodesis status; M51.16 Intervertebral disc disorders with radiculopathy, lumbar region; M47.26 Other spondylosis with radiculopathy, lumbar region; M79.18 Myalgia, other site
CPT/HCPCS: 72158; 82565

== ENCOUNTER 2021-10-15 15:00 | Outpatient (CLI) | payer MEDICARE, OTHER, SELFPAY ==
--- NOTE | 2021-10-15 06:00 | DI.RAD_ITS ---
Exam(s) XR PAIN CLINIC SACRIOILIAC 2V EXAM: XR PAIN CLINIC SACRIOILIAC 2V CLINICAL HISTORY: Dx: Sacroiliac Joint Dysfunction TECHNIQUE: 2D and realtime digital imaging was performed. Radiologist not present. CONTRAST MATERIAL: None. COMPARISON: No exams were available for comparison FINDINGS: Fluoroscopy was provided for pain management therapy. Please refer to procedure report or details. Cumulative dose: Ka,r=6.07 mGy IMPRESSION: RADIATION DOSE DELIVERED:
[2021-10-15 15:12] VITALS: BP 103/64; PULSE 66; RESP 20; TEMP 36.5; O2SAT 96
--- NOTE | 2021-10-15 15:46 | PDOC.PAIN ---
Pain Clinic Procedure Note Procedure Note Procedure Note: INTRA-ARTICULAR SI JOINT INJECTION Rubina Pizarro has been referred to the Pain Management Center for intra-articular SI joint injection. COMMENTS: I previously evaluated her in the office. Her chart says she is allergic to Iodine, but this was from a large dose of IV contrast 30-40 years ago. She is sure that she is not allergic to the contrast given now. Her pre-procedure pain VAS was 6/10. DX: Bilateral Sacroiliac joint dysfunction Patient was interviewed and the medical record reviewed. There were no medical, pharmacologic, radiographic or other structural contraindications to attempting fluoroscopically guided intra-articular SI joint injection. Risks and expected side effects as well as potential benefit of the procedure were reviewed and voiced concerns addressed. The printed consent form was signed and witnessed. Standard time-out procedure was performed. Patient was placed in the prone position on the fluoroscopy table and automated blood pressure cuff and pulse oximeter applied. The skin entry point for approaching the bilateral SI joints was identified under the most advantageous fluoroscopic view and marked. Following thorough Chlorhexadine preparation of the skin and draping and 1% lidocaine infiltration of the skin entry point and subcutaneous tissues, a 22 gauge spinal needle was placed under fluoroscopic guidance into the bilateral SI joints was identified under the most advantageous fluoroscopic view and marked. Following thorough Chlorhexadine preparation of the skin and draping and 1% lidocaine infiltration of the skin entry point and subcutaneous tissues, a 22 gauge spinal needle was placed under fluoroscopic guidance into the bilateral SI joints. Intra-articular placement was confirmed by a clear arthrogram resulting from the injection of 0.25ml Omnipaque 240, 1ml 1% lidocaine, and 40mg Depomedrol were injected intra-articularily with an initial reproduction of a significant component of the usual pain. Vital signs were stable throughout the procedure and were as recorded in the docflowsheet by the nursing staff. If given, dosages of intravenous drugs for anxiolysis and analgesia were documented in MAR. Follow up plans and appointments were discussed with the patient. Post procedure instruction was given as documented in nursing documentation and having met discharge criteria, and was discharged from the Pain Management Center. COMMENTS: Post-procedure pain VAS was 1/10. She did have a low blood pressure and some dizziness after the procedure. We kept her supine for about 15 minutes with constant monitoring and supervision. After that she felt better, was able to drink some fluids and ambulated out of the procedure suite under her own power. Rodrick Patricia DO, MPH [facility]-Pain Management [facility] CC: Tana Adler MD, [place]
[2021-10-15] MEDS: Omnipaque 240 MG/ML 50 ML BTL IJ (15:47)
[2021-10-15] MEDS: methylPREDNISolone ACETATE 80 MG/ML VIAL IJ (15:47)
[2021-10-15 15:51] VITALS: BP 99/54; PULSE 77; RESP 21; O2SAT 97
== END 2021-10-15 15:01 | disposition home or self-care (01) ==
LOC: PC 15:00
PROVIDERS: PCP Family Medicine; Visit Provider Preventive Medicine Occupational Medicine
DX: M53.3 Sacrococcygeal disorders, not elsewhere classified (principal)
CPT/HCPCS: 27096; 72200; J1040; Q9967

== ENCOUNTER → 2021-12-24 01:35 | Outpatient (CLI) | payer MEDICARE, OTHER, SELFPAY ==
--- NOTE | 2021-12-24 | DI.US_ITS ---
Exam(s) US THYROID EXAM: US THYROID CLINICAL HISTORY: THYROID NODULE E04.1. TECHNIQUE: Ultrasound thyroid performed using standard protocol. COMPARISON: Prior thyroid ultrasound of 01/08/2021 was reviewed FINDINGS: Both thyroid lobes exhibit upper normal size. Main finding is again in the right lobe. RIGHT THYROID LOBE: Measures 2.2 cm AP x 2.1 cm wide x 4.1 cm craniocaudal There is a single nodule again noted in the right lobe which is in the inferior half of the right lob e. Details of this nodule are as follows Size: Measures 2.9 x 2.9 x 3.3 cm Composition: Solid-2 point Echogenicity: Hypoechoic compared to surrounding parenchyma-2 points Shape: Slightly wider than taller in the transverse plane-0 point Margin: Relatively smooth-0 points Echogenic Foci: Contains macro calcifications-1 point Total Points for this nodule: 5 ACR Ti-Rads Category: TR4 This is a moderately suspicious nodule and should undergo ultrasound FNA given that it is a TR4 nodul e which measures larger than 1.5 cm. There are no other nodules in the right lobe. ISTHMUS: Normal thickness. There is a tiny 3 x 2 millimeter benign microcyst in the left side of the isthmus. LEFT THYROID LOBE: Measures 2.2 cm AP x 2.0 wide x 4.1 cm craniocaudal There is a single finding again noted in the inferior aspect which is a 4 millimeter calcification ex hibiting shadowing, possibly associated with the nodule which is obscured by the shadowing. Neverthe less, this nodule would measures significantly less than 1 cm and can be followed LYMPH NODES: There is no significant adenopathy. There is a single small benign-appearing 6 mill[address] er lymph node in the right jugular chain. IMPRESSION: 1. Main finding is again noted to be a TR4 nodule as described above in the inferior half of the righ t thyroid lobe.. Exhibits minimal change from the prior study of December 2020. I am unaware if this mar s undergone prior FNA. However, given that it is a TR4 nodule which measures significantly larger th an 1.5 cm, it should undergo ultrasound FNA (if not already performed). 2. Other findings as described above. 3. There is no significant lymphadenopathy. DATA REPOSITORY:
== END ==
PROVIDERS: PCP Family Medicine; Visit Provider Otolaryngology
DX: E04.1 Nontoxic single thyroid nodule (principal)
CPT/HCPCS: 76536

== ENCOUNTER 2022-01-22 02:17 | Outpatient (CLI) | payer MEDICARE, OTHER, SELFPAY ==
[2022-01-22 10:26] LABS: Abs Immature Grans 0.05 10^3/uL (0.0-0.06); Absolute Basophil Count 0.06 10^3/uL (0.0-0.2); Absolute Eosinophil Count 0.32 10^3/uL (0.0-0.7); Absolute Lymphocyte Count 1.53 10^3/uL (1.2-3.4); Absolute Monocyte Count 0.53 10^3/uL (0.1-0.8); Absolute Neutrophil Count 7.62 10^3/uL (1.2-6.7); Basophils % 0.6; Eosinophils % 3.2; HCT 42.2 % (36.0-46.0); HGB 13.3 g/dL (11.2-15.7); Immature Grans % 0.5; Lymphocytes % 15.1; MCH 28.3 pg (27.0-33.0); MCHC 31.5 % (32.0-36.0); MCV 90 fL (80-95); Monocytes % 5.2; Neutrophils % 75.4; Platelet Count 165 10^3/uL (130-400); RDW 14.2 % (11.7-14.6); RDW-SD 46.7 fL; WBC 10.11 10^3/uL (4.4-10.8)
[2022-01-22 10:37] LABS: ALT 16 U/L (14-59); AST 18 U/L (15-37); Albumin 3.7 g/dL (3.4-5.0); Alkaline Phosphatase 83 U/L (46-116); Anion Gap 11.2 mmol/L (3-11); BUN 31 mg/dL (7-18); Bilirubin, Total 0.3 mg/dL (0.2-1.0); CO2 24.8 mmol/L (21.0-32.0); Calcium 9.2 mg/dL (8.5-10.1); Chloride 104 mmol/L (98-107); Estimated GFR 53.21 (mL/min/1.73m2); Glucose 152 mg/dL (74-106); Sodium 140 mmol/L (136-145); Total Protein 7.4 g/dL (6.4-8.2)
[2022-01-22 10:44] LABS: Hemoglobin A1C 7.2 % (<5.7)
[2022-01-22 11:50] LABS: Microalb ug/mg Crea 8.9 ug/mg Cr
== END 2022-01-22 02:18 | disposition home or self-care (01) ==
LOC: LBO 02:17
PROVIDERS: PCP Family Medicine; Visit Provider Internal Medicine Hematology & Oncology
DX: E11.9 Type 2 diabetes mellitus without complications (principal); C92.10 Chronic myeloid leukemia, BCR/ABL-positive, not having achieved remission
CPT/HCPCS: 36415; 80053; 81206; 82043; 82570; 83036; 85025

== ENCOUNTER 2022-02-09 04:13 | Outpatient (CLI) | payer MEDICARE, OTHER, SELFPAY ==
[2022-02-09 10:47] LABS: ALT 18 U/L (14-59); AST 21 U/L (15-37); Albumin 3.7 g/dL (3.4-5.0); Anion Gap 11.3 mmol/L (3-11); BUN 25 mg/dL (7-18); Bilirubin, Total 0.2 mg/dL (0.2-1.0); CO2 24.7 mmol/L (21.0-32.0); CREATININE 1.1 mg/dL (0.55-1.02); Calcium 9.4 mg/dL (8.5-10.1); Chloride 102 mmol/L (98-107); Estimated GFR 47.67 (mL/min/1.73m2); Glucose 134 mg/dL (74-106); Potassium 3.9 mmol/L (3.5-5.1); Sodium 138 mmol/L (136-145); Total Protein 7.4 g/dL (6.4-8.2)
[2022-02-09 10:58] LABS: Alkaline Phosphatase 83 U/L (46-116)
[2022-03-04 12:03] LABS: Indication for Study CML
[2022-03-04 12:04] LABS: BCR-ABL1 p210 FusionTranscript See Comments; Specimen Type Peripheral blood
[2022-03-04 12:05] LABS: BCR-ABL1 Interpretation See Comments
[2022-03-04 12:06] LABS: Limitations and Disclaimers See Comments
== END 2022-02-09 04:14 | disposition home or self-care (01) ==
LOC: LBO 04:13
PROVIDERS: Nurse Practitioner Family; PCP Family Medicine; Visit Provider Internal Medicine Hematology & Oncology
DX: E11.9 Type 2 diabetes mellitus without complications (principal); C92.10 Chronic myeloid leukemia, BCR/ABL-positive, not having achieved remission
CPT/HCPCS: 36415; 80053; 81206

== ENCOUNTER → 2022-04-21 10:54 | Outpatient (BNVA) | payer MEDICARE, OTHER, SELFPAY | PROVIDERS: PCP Family Medicine; Visit Provider Internal Medicine Cardiovascular Disease | DX: I48.91 Unspecified atrial fibrillation (principal); I42.8 Other cardiomyopathies; Z79.01 Long term (current) use of anticoagulants | CPT/HCPCS: 93005; 99214 ==

== ENCOUNTER 2022-04-21 11:13 | Outpatient (CLI) | payer MEDICARE, OTHER, SELFPAY ==
--- NOTE | 2022-04-21 11:00 | RT.EKG_ITS ---
APPROVED REPORT Exam: Resting ECG Reason for Exam: atrial fibrillation Patient Location: O HR:110 bpm ECG Measurements Heart Rate 110 AXIS IN 182 P 39 QRSd 87 QRS -35 QT 316 T 88 QTc 428 Conclusion Sinus rhythm with frequent atrial premature beats LVH with secondary repolarization abnormality...multi-LVH criteria, abnrm ST-T LAFB
== END 2022-04-21 11:14 | disposition home or self-care (01) ==
LOC: DI.CARD 11:14
PROVIDERS: PCP Family Medicine; Visit Provider Internal Medicine Cardiovascular Disease
DX: I48.91 Unspecified atrial fibrillation (principal); I49.1 Atrial premature depolarization
CPT/HCPCS: 93010

== ENCOUNTER 2022-05-06 13:43 | Outpatient (CLI) | payer MEDICARE, OTHER, SELFPAY ==
--- NOTE | 2022-05-06 06:00 | DI.RAD_ITS ---
Exam(s) XR PAIN CLINIC SACRIOILIAC 2V EXAM: XR PAIN CLINIC SACRIOILIAC 2V CLINICAL HISTORY: Dx: Sacroiliac Joint Dysfunction TECHNIQUE: 2D and realtime digital imaging was performed. COMPARISON: No exams were available for comparison FINDINGS: C-arm fluoroscopy was utilized by Dr. Patricia during bilateral SI joint injection. Hard copy confirms b ilateral SI joint injections. IMPRESSION: RADIATION DOSE DELIVERED: Bettyr=7.16 mGy
[2022-05-06 13:53] VITALS: BP 121/64; PULSE 75; RESP 20; TEMP 36.8; O2SAT 97
--- NOTE | 2022-05-06 14:36 | PDOC.PAIN ---
Date of service: 05/06/22 Time of Service: 14:38 Pain Clinic Procedure Note Procedure Note Procedure Note: INTRA-ARTICULAR SI JOINT INJECTION Rubina Pizarro has been referred to the Pain Management Center for intra-articular SI joint injection. COMMENTS: She did very well with her last bilateral sacroiliac joint injections. Pre-procedure pain VAS was 8/10. Dx: Sacroiliac joint dysfunction Patient was interviewed and the medical record reviewed. There were no medical, pharmacologic, radiographic or other structural contraindications to attempting fluoroscopically guided intra-articular SI joint injection. Risks and expected side effects as well as potential benefit of the procedure were reviewed and voiced concerns addressed. The printed consent form was signed and witnessed. Standard time-out procedure was performed. Patient was placed in the prone position on the fluoroscopy table and automated blood pressure cuff and pulse oximeter applied. The skin entry point for approaching the bilateral SI joints was identified under the most advantageous fluoroscopic view and marked. Following thorough Chlorhexadine preparation of the skin and draping and 1% lidocaine infiltration of the skin entry point and subcutaneous tissues, a 22 gauge 3.5 spinal needle was placed under fluoroscopic guidance into the bilateral SI joints was identified under the most advantageous fluoroscopic view and marked. Following thorough Chlorhexadine preparation of the skin and draping and 1% lidocaine infiltration of the skin entry point and subcutaneous tissues, a 22 gauge spinal needle was placed under fluoroscopic guidance into the bilateral SI joints. Intra-articular placement was confirmed by a clear arthrogram resulting from the injection of 0.25ml Omnipaque 240, 1ml 1% lidocaine, and 40mg Depomedrol were injected intra-articularily into each joint with an initial reproduction of a significant component of the usual pain. Vital signs were stable throughout the procedure and were as recorded in the docflowsheet by the nursing staff. If given, dosages of intravenous drugs for anxiolysis and analgesia were documented in MAR. Follow up plans and appointments were discussed with the patient. Post procedure instruction was given as documented in nursing documentation and having met discharge criteria, and was discharged from the Pain Management Center. COMMENTS: Post-procedure pain VAS was 0/10. Rodrick Patricia DO, MPH [facility])-Pain Management [facility] for Pain Management CC: Tana Adler MD, [place]
[2022-05-06] MEDS: Omnipaque 240 MG/ML 50 ML BTL IJ (14:41)
[2022-05-06] MEDS: methylPREDNISolone ACETATE 80 MG/ML VIAL IJ (14:41)
[2022-05-06 14:42] VITALS: BP 118/64; PULSE 67; RESP 16; O2SAT 97
== END 2022-05-06 13:44 | disposition home or self-care (01) ==
LOC: PC 13:43
PROVIDERS: PCP Family Medicine; Visit Provider Preventive Medicine Occupational Medicine
DX: M54.50 Low back pain, unspecified (principal); M53.3 Sacrococcygeal disorders, not elsewhere classified
CPT/HCPCS: 72200; G0260; J1040; Q9967

== ENCOUNTER → 2022-06-17 10:57 | Outpatient (BNVA) | payer MEDICARE, OTHER, SELFPAY | PROVIDERS: PCP Family Medicine; Referring Provider Family Medicine; Visit Provider Internal Medicine Cardiovascular Disease | DX: I48.91 Unspecified atrial fibrillation (principal) | CPT/HCPCS: 93005; 99213 ==

== ENCOUNTER 2022-06-17 11:24 | Outpatient (CLI) | payer MEDICARE, OTHER, SELFPAY ==
--- NOTE | 2022-06-17 11:15 | RT.EKG_ITS ---
APPROVED REPORT Exam: Resting ECG Reason for Exam: PAC's Patient Location: O HR:82 bpm ECG Measurements Heart Rate 82 AXIS CA 159 P 0 QRSd 86 QRS -29 QT 351 T 103 QTc 410 Conclusion Sinus rhythm...normal P axis, V-rate 50- 99 LVH with secondary repolarization abnormality...multi-LVH criteria, abnrm ST-T
== END 2022-06-17 11:25 | disposition home or self-care (01) ==
LOC: DI.CARD 11:25
PROVIDERS: PCP Family Medicine; Visit Provider Internal Medicine Cardiovascular Disease
DX: I48.91 Unspecified atrial fibrillation (principal)
CPT/HCPCS: 93010

== ENCOUNTER 2022-10-15 03:32 | Outpatient (CLI) | payer MEDICARE, OTHER, SELFPAY ==
[2022-10-15 12:21] LABS: Abs Immature Grans 0.02 10^3/uL (0.0-0.06); Absolute Basophil Count 0.03 10^3/uL (0.0-0.2); Absolute Eosinophil Count 0.17 10^3/uL (0.0-0.7); Absolute Lymphocyte Count 1.94 10^3/uL (1.2-3.4); Absolute Monocyte Count 0.36 10^3/uL (0.1-0.8); Absolute Neutrophil Count 3.85 10^3/uL (1.2-6.7); Basophils % 0.5; Eosinophils % 2.7; HCT 39.2 % (36.0-46.0); Immature Grans % 0.3; Lymphocytes % 30.5; MCH 29.7 pg (27.0-33.0); MCHC 33.2 % (32.0-36.0); MCV 90 fL (80-95); Monocytes % 5.7; Neutrophils % 60.3; Platelet Count 172 10^3/uL (130-400); RBC 4.37 10^6/uL (3.93-5.22); RDW 12.3 % (11.7-14.6); RDW-SD 40.4 fL; WBC 6.37 10^3/uL (4.4-10.8)
[2022-10-15 13:01] LABS: Hemoglobin A1C 6.9 % (<5.7)
[2022-10-15 13:08] LABS: ALT 11 U/L (14-59); AST 14 U/L (15-37); Albumin 3.7 g/dL (3.4-5.0); Alkaline Phosphatase 76 U/L (46-116); Anion Gap 8.2 mmol/L (3-11); BUN 31 mg/dL (7-18); Bilirubin, Total 0.2 mg/dL (0.2-1.0); CO2 27.8 mmol/L (21.0-32.0); CREATININE 1.1 mg/dL (0.55-1.02); Calcium 9.1 mg/dL (8.5-10.1); Chloride 104 mmol/L (98-107); Estimated GFR 50.17 (mL/min/1.73m2); Glucose 137 mg/dL (74-106); Potassium 4.3 mmol/L (3.5-5.1); Sodium 140 mmol/L (136-145); Total Protein 7.5 g/dL (6.4-8.2)
[2022-10-19 13:19] LABS: Indication for Study See Comments
[2022-10-19 13:20] LABS: Specimen Type Blood
[2022-10-19 13:21] LABS: BCR-ABL1 p210 FusionTranscript See Comments
[2022-10-19 13:22] LABS: BCR-ABL1 Interpretation See Comments
[2022-10-19 13:23] LABS: Limitations and Disclaimers See Comments
== END 2022-10-15 03:33 | disposition home or self-care (01) ==
PROVIDERS: PCP Family Medicine; Visit Provider Nurse Practitioner Family
DX: C92.10 Chronic myeloid leukemia, BCR/ABL-positive, not having achieved remission
CPT/HCPCS: 36415; 80053; 81206; 83036; 85025

== ENCOUNTER → 2022-10-23 09:48 | Outpatient (BNVA) | payer MEDICARE, OTHER, SELFPAY | PROVIDERS: PCP Family Medicine; Referring Provider Family Medicine; Visit Provider Internal Medicine Cardiovascular Disease | DX: Z09 Encounter for follow-up examination after completed treatment for conditions other than malignant neoplasm (principal); Z86.79 Personal history of other diseases of the circulatory system; Z79.01 Long term (current) use of anticoagulants; Z98.890 Other specified postprocedural states | CPT/HCPCS: 99213 ==

== ENCOUNTER → 2022-11-30 08:51 | Outpatient (BNVA) | payer MEDICARE, OTHER, SELFPAY | PROVIDERS: PCP Family Medicine; Referring Provider Family Medicine; Visit Provider Surgery | DX: C44.629 Squamous cell carcinoma of skin of left upper limb, including shoulder (principal) | CPT/HCPCS: 11603; 99203 ==

== ENCOUNTER 2022-11-30 09:33 | Outpatient (REF) | payer MEDICARE, OTHER, SELFPAY ==
--- NOTE | 2022-11-27 09:40 | SKI_PTH ---
PATIENT: Rubina Pizarro LOC: ELISA U#:[id number] AGE/SX: 82/F ROOM: RE11/30/[address]: Arleth Whalen MD : 1940 BED: DIS: 11/30/2022 SPEC #: [id number] RECD: 11/30/22 12:49 STATUS: VERÓNICA REJerry #: [id number] MICKIE: 11/27/22 09:[address]: Arleth Whalen DEPT: Surgical Specimen RECD BY: Afsaneh Kunz ENTERED: 11/30/22 12:50 SP TYPE: LAVON [place] DR: Tana Adler MD, DC Tissues: 1 - SKIN BIOPSY(SHAVE/PUNCH) Procedures: SKIN LEVEL 4 Comments: [id number]
== END 2022-11-30 09:34 | disposition home or self-care (01) ==
LOC: LBN 09:33
PROVIDERS: PCP Family Medicine; Visit Provider Surgery
DX: C44.629 Squamous cell carcinoma of skin of left upper limb, including shoulder (principal)
CPT/HCPCS: 88305

== ENCOUNTER → 2022-12-09 13:43 | Outpatient (BNVA) | payer MEDICARE, OTHER, SELFPAY | PROVIDERS: PCP Family Medicine; Referring Provider Family Medicine; Visit Provider Surgery | DX: Z48.02 Encounter for removal of sutures (principal); L98.9 Disorder of the skin and subcutaneous tissue, unspecified ==

== ENCOUNTER 2022-12-17 02:19 | Outpatient (CLI) | payer MEDICARE, OTHER, SELFPAY ==
--- NOTE | 2022-12-17 08:15 | DI.US_ITS ---
Exam(s) US THYROID EXAM: US THYROID CLINICAL HISTORY: TR 4 lesion, assess for change, not biopsied,f/u rt thyroid nodule,e04.1. TECHNIQUE: Ultrasound thyroid performed using standard protocol. COMPARISON: CT CT CHEST PE CTA from 08/16/2019 US US THYROID from 12/24/2021 FINDINGS: ISTHMUS: 2 mm RIGHT LOBE: Size: 4.1 x 2.2 x 1.9 cm Echogenicity: Normal. Vascularity: Normal. Nodules: There is again seen a partially calcified mass in the inferior pole of the right lobe of the thyroid gland. This corresponds to a nodule seen on the CT scan of the chest from 08/16/2019. It roxanne sures 2.5 x 2.6 x 2.6 cm. This compares to 3.3 x 2.9 x 2.9 cm. It is solid and hypoechoic with macr ocalcifications. There may also be some peripheral calcifications present. It is consistent with a TI rads level 5 nodule. Due to its size, FNA is recommended. LEFT LOBE: Size: 3.9 x 2.1 x 1.8 cm Echogenicity: There is a calcification in the inferior pole. This can be seen on the CT scan of the chest from 08/16/2019. Vascularity: Normal. Nodules: None. OTHER FINDINGS: None. IMPRESSION: Partially calcified right inferior pole thyroid nodule. Due to its size, FNA is recommended. DATA REPOSITORY:
== END 2022-12-17 02:39 ==
LOC: DI 02:19
PROVIDERS: PCP Family Medicine; Visit Provider Otolaryngology
DX: E04.1 Nontoxic single thyroid nodule (principal)
CPT/HCPCS: 76536

== ENCOUNTER 2023-03-09 09:04 | Outpatient (REF) | payer MEDICARE, OTHER, SELFPAY ==
[2023-03-09 13:26] LABS: COMMENT (LAB VIEW ONLY) 110.24 mg/dL; Microalb ug/mg Crea 6.3 ug/mg Cr
== END 2023-03-09 09:05 | disposition home or self-care (01) ==
LOC: LBN 09:04
PROVIDERS: PCP Family Medicine; Visit Provider Family Medicine
DX: E11.9 Type 2 diabetes mellitus without complications (principal)
CPT/HCPCS: 82043; 82570

== ENCOUNTER → 2023-03-24 01:47 | Outpatient (CLI) | payer MEDICARE, OTHER, SELFPAY ==
--- NOTE | 2023-03-24 07:15 | DI.RAD_ITS ---
Exam(s) XR SHOULDER LT COMPLETE 2+V EXAM: XR SHOULDER LT COMPLETE 2+V CLINICAL HISTORY: l shoulder pain radiating to neck,m25.512. TECHNIQUE: 2D digital imaging was performed. COMPARISON: CR XR humerus LT from 02/01/2019 FINDINGS: Five views. No evidence of fracture or dislocation. There degenerative changes glenohumeral joint with joint spa ce narrowing and osteophyte on the inferior articular surface of humeral head noted. There are no ca lcifications in the non diminished subacromial space. There is, however, lamellated calcification me asuring 1.4 by 0.9 cm which is at the humeral neck level and may be within the superior recess of the shoulder joint nor within the biceps tendon sheath. Mild degenerative changes noted in the AC joint . Clavicle unremarkable. Degenerative subarticular cysts are noted in the osseous glenoid or possib ly channels related to prior labral surgery. IMPRESSION: Degenerative changes in the glenohumeral joint. Also 14 x 9 mm calcific density which is either in the inferior recess or possibly within the biceps tendon sheath. DATA REPOSITORY: RADIATION DOSE DELIVERED:
--- NOTE | 2023-03-24 07:15 | DI.RAD_ITS ---
Exam(s) XR CERVICAL SPINE COMP 4-5V EXAM: XR CERVICAL SPINE COMP 4-5V CLINICAL HISTORY: left neck pain,m54.2. TECHNIQUE: 2D digital imaging was performed. COMPARISON: No exams were available for comparison FINDINGS: Six views. No evidence of fracture nor listhesis. No offset of the spinal laminar line. There is advanced chronic disc space narrowing at C5-6 and C6-7 levels. Luschka joint osteophytes al so evident at levels. There is multilevel facet arthropathy. No facet malalignment. No cervical ri bs. Bone density age-appropriate. No lytic osseous lesions identified. No cervical ribs. IMPRESSION: Multilevel chronic degenerative disc disease and facet arthropathy. No acute fracture. No listhesis . DATA REPOSITORY: RADIATION DOSE DELIVERED:
== END ==
PROVIDERS: PCP Family Medicine; Visit Provider Family Medicine
DX: M25.512 Pain in left shoulder (principal); M54.2 Cervicalgia
CPT/HCPCS: 72050; 73030

== ENCOUNTER 2023-04-14 03:37 | Outpatient (CLI) | payer MEDICARE, OTHER, SELFPAY ==
[2023-04-14 11:52] LABS: Abs Immature Grans 0.02 10^3/uL (0.0-0.06); Absolute Basophil Count 0.02 10^3/uL (0.0-0.2); Absolute Eosinophil Count 0.16 10^3/uL (0.0-0.7); Absolute Lymphocyte Count 1.32 10^3/uL (1.2-3.4); Absolute Monocyte Count 0.22 10^3/uL (0.1-0.8); Absolute Neutrophil Count 2.82 10^3/uL (1.2-6.7); Basophils % 0.4; Eosinophils % 3.5; HCT 39.9 % (36.0-46.0); HGB 12.5 g/dL (11.2-15.7); Immature Grans % 0.4; Lymphocytes % 28.9; MCH 28.4 pg (27.0-33.0); MCHC 31.3 % (32.0-36.0); MCV 91 fL (80-95); Monocytes % 4.8; Platelet Count 158 10^3/uL (130-400); RDW-SD 46.8 fL; WBC 4.56 10^3/uL (4.4-10.8)
[2023-04-14 12:17] LABS: ALT 14 U/L (14-59); AST 19 U/L (15-37); Albumin 3.6 g/dL (3.4-5.0); Alkaline Phosphatase 63 U/L (46-116); Anion Gap 9.3 mmol/L (3-11); BUN 30 mg/dL (7-18); Bilirubin, Total 0.3 mg/dL (0.2-1.0); CO2 25.7 mmol/L (21.0-32.0); Calcium 9.8 mg/dL (8.5-10.1); Chloride 103 mmol/L (98-107); Estimated GFR 56.25 (mL/min/1.73m2); Glucose 177 mg/dL (74-106); Potassium 4.4 mmol/L (3.5-5.1); Sodium 138 mmol/L (136-145); Total Protein 7.6 g/dL (6.4-8.2)
[2023-04-19 11:28] LABS: Indication for Study CML
[2023-04-19 11:29] LABS: BCR-ABL1 p210 FusionTranscript See Comments; Specimen Type Blood
[2023-04-19 11:30] LABS: BCR-ABL1 Interpretation See Comments
[2023-04-19 11:31] LABS: Limitations and Disclaimers See Comments
== END 2023-04-14 03:38 | disposition home or self-care (01) ==
PROVIDERS: PCP Family Medicine; Visit Provider Nurse Practitioner Family
DX: C92.10 Chronic myeloid leukemia, BCR/ABL-positive, not having achieved remission (principal)
CPT/HCPCS: 36415; 80053; 81206; 85025

== ENCOUNTER → 2023-05-11 09:09 | Outpatient (BNVA) | payer MEDICARE, OTHER, SELFPAY | PROVIDERS: PCP Family Medicine; Referring Provider Family Medicine; Visit Provider Student in an Organized Health Care Education/Training Program | DX: M19.012 Primary osteoarthritis, left shoulder (principal); I48.91 Unspecified atrial fibrillation; Z79.01 Long term (current) use of anticoagulants | CPT/HCPCS: 20610; 99213; J1030 ==

== ENCOUNTER → 2023-05-28 10:05 | Outpatient (CLI) | payer MEDICARE, OTHER, SELFPAY ==
--- NOTE | 2023-05-28 11:33 | DI.RAD_ITS ---
Exam(s) XR WRIST RT COMPL NAVICULAR EXAM: XR WRIST RT COMPL NAVICULAR CLINICAL HISTORY: r wrist pain,m25.531. TECHNIQUE: 2D digital imaging was performed. COMPARISON: No exams were available for comparison FINDINGS: Five views. There is no evidence of acute fracture or dislocation. However, there are advanced degenerative tate ges in the radiocarpal joint. There is [id number] narrowing at the radioscaphoid space with degene rative sub cyst at this level. Also appears to be invagination of the proximal capitate into the sca pholunate space. The there are loose bodies in the lateral aspect of the radiocarpal joint and is a bony excrescence off the lateral aspect of the distal scaphoid. There also appear to be multiple killian encies in small carpal row bones/cystic changes. There also moderate degenerative changes in the 1st carpometacarpal joint. There is an element of negative ulnar variance. IMPRESSION: Advanced degenerative changes in the radiocarpal joint. 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 Also moderate degenerative change at the 1st carpometacarpal joint. DATA REPOSITORY: RADIATION DOSE DELIVERED:
== END ==
PROVIDERS: PCP Family Medicine; Visit Provider Family Medicine
DX: M19.031 Primary osteoarthritis, right wrist (principal)
CPT/HCPCS: 73110

== ENCOUNTER 2023-06-16 10:09 | Outpatient (CLI) | payer MEDICARE, OTHER, SELFPAY ==
--- NOTE | 2023-06-16 10:00 | RT.EKG_ITS ---
APPROVED REPORT Exam: Resting ECG Reason for Exam: afib Patient Location: O HR:76 bpm ECG Measurements Heart Rate 76 AXIS SD 158 P 47 QRSd 89 QRS -37 QT 356 T 35 QTc 401 Conclusion Sinus rhythm...normal P axis, V-rate 50- 99 Left ventricular hypertrophy...multiple voltage criteria LAFB
== END 2023-06-16 10:10 | disposition home or self-care (01) ==
LOC: DI.CARD 10:12
PROVIDERS: PCP Family Medicine; Visit Provider Internal Medicine Cardiovascular Disease
DX: I48.91 Unspecified atrial fibrillation (principal); Z98.890 Other specified postprocedural states
CPT/HCPCS: 93010

== ENCOUNTER → 2023-06-16 10:50 | Outpatient (BNVA) | payer MEDICARE, OTHER, SELFPAY | PROVIDERS: PCP Family Medicine; Visit Provider Internal Medicine Cardiovascular Disease | DX: Z09 Encounter for follow-up examination after completed treatment for conditions other than malignant neoplasm (principal); Z86.79 Personal history of other diseases of the circulatory system | CPT/HCPCS: 93005; 99213 ==

== ENCOUNTER → 2023-07-09 09:55 | Outpatient (CLI) | payer MEDICARE, OTHER, SELFPAY ==
--- NOTE | 2023-07-09 08:30 | DI.RAD_ITS ---
Exam(s) XR ANKLE RT COMPLETE EXAM: XR ANKLE RT COMPLETE CLINICAL HISTORY: r ankle pain s/p fall, S99.971A. TECHNIQUE: 2D digital imaging was performed. COMPARISON: No exams were available for comparison FINDINGS: 3 views There is soft tissue swelling over the medial aspect of the ankle. There is a tiny calcific density adjacent to the tip of the medial malleolus which may represent small avulsion fragment. Similar fin ding not seen on the lateral malleolus. Talar dome appears unremarkable. There are no obvious degen erative changes in the ankle joint and the sub talar and other proximal joints of the foot appear unr emarkable. There is a moderate size inferior calcaneal spur. Slight thickening of the Achilles tend on is noted. Also some calcification noted in the posterior plantar fascia. IMPRESSION: Subtle avulsion fragment off the tip of the medial malleolus with overlying soft tissue swelling. DATA REPOSITORY: RADIATION DOSE DELIVERED:
== END ==
PROVIDERS: PCP Family Medicine; Visit Provider Family Medicine
DX: M41.34 Thoracogenic scoliosis, thoracic region (principal)
CPT/HCPCS: 73610

== ENCOUNTER → 2023-07-13 09:34 | Outpatient (BNVA) | payer MEDICARE, OTHER, SELFPAY | PROVIDERS: PCP Family Medicine; Referring Provider Family Medicine; Visit Provider Student in an Organized Health Care Education/Training Program | DX: M19.012 Primary osteoarthritis, left shoulder (principal); M19.031 Primary osteoarthritis, right wrist; S86.011D Strain of right Achilles tendon, subsequent encounter; X58.XXXD Exposure to other specified factors, subsequent encounter | CPT/HCPCS: 99214 ==

== ENCOUNTER → 2023-07-14 19:04 | Outpatient (CLI) | payer MEDICARE, OTHER, SELFPAY ==
--- NOTE | 2023-07-14 10:45 | DI.RAD_ITS ---
Exam(s) XR THORACIC SPINE COMPLETE EXAM: XR THORACIC SPINE COMPLETE CLINICAL HISTORY: Acute back pain x 2 months. +/- compression fx M54.9 DORSALGIA. TECHNIQUE: 2D digital imaging was performed. Three views. COMPARISON: No exams were available for comparison FINDINGS: BONES: There is no fracture or destructive lesion. Endplate osteophytes noted throughout. Multileve l mild disc space narrowing. ALIGNMENT: Mild dextroscoliosis. SOFT TISSUE: Visualized lungs are clear. IMPRESSION: Degenerative changes and scoliosis. No evidence of compression fracture. DATA REPOSITORY: RADIATION DOSE DELIVERED:
== END ==
PROVIDERS: PCP Family Medicine; Visit Provider Preventive Medicine Occupational Medicine
DX: M41.34 Thoracogenic scoliosis, thoracic region (principal)
CPT/HCPCS: 72072

== ENCOUNTER → 2023-07-27 10:00 | Outpatient (BNVA) | payer MEDICARE, OTHER, SELFPAY | PROVIDERS: PCP Family Medicine; Visit Provider Student in an Organized Health Care Education/Training Program | DX: M19.012 Primary osteoarthritis, left shoulder (principal); S86.011D Strain of right Achilles tendon, subsequent encounter; X58.XXXD Exposure to other specified factors, subsequent encounter | CPT/HCPCS: 99213 ==

== ENCOUNTER → 2023-07-29 03:04 | Outpatient (CLI) | payer MEDICARE, OTHER, SELFPAY ==
--- NOTE | 2023-07-29 12:45 | DI.MRI_ITS ---
Exam(s) MR LOWER JOINT RT WO EXAM: MR LOWER JOINT RT WO CLINICAL HISTORY: ACHILLES tendon rupture,s86.011a,strain TECHNIQUE: Multiplanar multisequence MRI was performed without intravenous contrast. COMPARISON: CR XR ANKLE RT COMPLETE from 07/09/2023 FINDINGS: BONES/JOINTS: Plantar calcaneal spur. No fracture or contusion pattern. No suspicious bone lesions i dentified. Small defect medial talar dome, 4 millimeters. Subjacent small cyst. The ankle mortise i s maintained. No joint effusion is present. LIGAMENTS: The tibiofibular and calcaneofibular ligaments are intact. The talofibular ligaments are i ntact. The deltoid ligament is intact. The syndesmosis is unremarkable. Sinus tarsi is normal. MUSCULOTENDINOUS STRUCTURES: Achilles tendon: Full-thickness tear with retraction 3.5 cm. Plantar fascia: Unremarkable. Anterior Extensor tendons: Unremarkable. Posterior Tibialis: Unremarkable. Flexor Digitorum longus: Unremarkable. Flexor Hallucis longus: Unremarkable. Peroneus longus: Unremarkable. Peroneus brevis:Unremarkable. SOFT TISSUES: Diffuse subcutaneous edema. No focal collection. OTHER FINDINGS: None. IMPRESSION: Full-thickness Achilles tendon tear with retraction 3.5 cm. Remaining tendons appear intact. Small defect medial talar dome. DATA REPOSITORY:
== END ==
PROVIDERS: PCP Family Medicine; Visit Provider Student in an Organized Health Care Education/Training Program
DX: S86.011A Strain of right Achilles tendon, initial encounter (principal); X58.XXXA Exposure to other specified factors, initial encounter
CPT/HCPCS: 73721

== ENCOUNTER → 2023-08-05 03:04 | Outpatient (CLI) | payer MEDICARE, OTHER, SELFPAY ==
--- NOTE | 2023-08-05 07:45 | DI.RAD_ITS ---
Exam(s) RF JOINT INJ. FLUORO GUID RAD EXAM: RF JOINT INJ. FLUORO GUID RAD CLINICAL HISTORY: L SHOULDER PAIN,FLUORO GUIDED INJECTION,ARTHRITIS,M19.012. The Patient has had pe rsistent left shoulder pain. Noninvasive measures have been tried. To serve as both diagnostic and therapeutic, an injection under fluoroscopy was recommended. The risks of the procedure were discuss ed with their Orthopedic provider and the patient elected to proceed. TECHNIQUE: 2D and realtime digital imaging was performed. CONTRAST MATERIAL: Water soluble contrast was utilized. COMPARISON: No exams were available for comparison FINDINGS: The Patient was greeted in the fluoroscopy room. The correct side was identified and the consent was reviewed with the patient and was signed. The patient was properly positioned on the fluoroscopy ta ble. The left shoulderwas then prepped with Chloraprep and draped. The left shoulder injection star ting point was identified by the bony landmarks and fluoroscopy. The skin and soft tissue in the tra ct of the injection was anesthetized with 1% Lidocaine. A spinal needle was then inserted into the l eft shoulder joint at the level of the glenohumeral joint under fluoroscopic guidance. A small amoun t of Omnipaque solution was injected to confirm intraarticular placement. Once confirmed, the left s houlder was injected with 5cc of a solution containing 0.5% Bupivaine and 80 mg of Depo-Medrol. A ba ndaid was placed on the injection site. The patient tolerated the procedure well and left the depart ment in good condition. IMPRESSION: Successful left shoulder injection. RADIATION DOSE DELIVERED: Ka,r=2.09 mGy
[2023-08-05] MEDS: methylPREDNISolone ACETATE 80 MG/ML VIAL IM (14:04)
[2023-08-05] MEDS: Omnipaque 300 MG/ML 10 ML BTL IJ (14:37)
== END ==
PROVIDERS: PCP Family Medicine; Visit Provider Student in an Organized Health Care Education/Training Program
DX: M19.012 Primary osteoarthritis, left shoulder (principal); M25.512 Pain in left shoulder
CPT/HCPCS: 20610; 77002; J1040

== ENCOUNTER 2023-08-05 15:13 | Outpatient (REF) | payer MEDICARE, OTHER, SELFPAY ==
[2023-08-05 21:49] LABS: HCT 40.9 % (36.0-46.0); HGB 13.1 g/dL (11.2-15.7); MCH 28.9 pg (27.0-33.0); MCV 90 fL (80-95); MPV 11.3 fL (8.0-11.0); Platelet Count 234 10^3/uL (130-400); RBC 4.54 10^6/uL (3.93-5.22); RDW 13.4 % (11.7-14.6); WBC 7.48 10^3/uL (4.4-10.8)
== END 2023-08-05 15:14 | disposition home or self-care (01) ==
LOC: LBN 15:13
PROVIDERS: PCP Family Medicine; Visit Provider Nurse Practitioner Family
DX: I48.91 Unspecified atrial fibrillation (principal); R23.3 Spontaneous ecchymoses; Z79.01 Long term (current) use of anticoagulants
CPT/HCPCS: 85027

== ENCOUNTER 2023-08-09 18:42 | Outpatient (REF) | payer MEDICARE, OTHER, SELFPAY | END 2023-08-09 18:43 | disposition home or self-care (01) | LOC: LBN 18:42 | PROVIDERS: PCP Family Medicine; Visit Provider Family Medicine | DX: N76.0 Acute vaginitis (principal) | CPT/HCPCS: 87480; 87510; 87660 ==

== ENCOUNTER → 2023-08-10 10:49 | Outpatient (BNVA) | payer MEDICARE, OTHER, SELFPAY | PROVIDERS: PCP Family Medicine; Visit Provider Student in an Organized Health Care Education/Training Program | DX: S86.011A Strain of right Achilles tendon, initial encounter (principal); X58.XXXA Exposure to other specified factors, initial encounter; E11.65 Type 2 diabetes mellitus with hyperglycemia | CPT/HCPCS: 99213 ==

== ENCOUNTER 2023-08-17 04:33 | Outpatient (CLI) | payer MEDICARE, OTHER, SELFPAY ==
[2023-08-17 10:33] LABS: ALT 18 U/L (14-59); AST 22 U/L (15-37); Albumin 3.7 g/dL (3.4-5.0); Alkaline Phosphatase 49 U/L (46-116); Anion Gap 7.1 mmol/L (3-11); BUN 28 mg/dL (7-18); Bilirubin, Total 0.4 mg/dL (0.2-1.0); CO2 26.9 mmol/L (21.0-32.0); CREATININE 1.1 mg/dL (0.55-1.02); Calcium 9.6 mg/dL (8.5-10.1); Calculated LDL 145 mg/dL (<100); Chloride 105 mmol/L (98-107); Cholesterol 234 mg/dL (<200); Estimated GFR 49.86 (mL/min/1.73m2); Glucose 140 mg/dL (74-106); HDL Cholesterol 52 mg/dL (40-60); Potassium 4.4 mmol/L (3.5-5.1); Sodium 139 mmol/L (136-145); Total Protein 7.6 g/dL (6.4-8.2); Triglyceride 185 mg/dL (<150)
== END 2023-08-17 04:34 | disposition home or self-care (01) ==
PROVIDERS: PCP Family Medicine; Visit Provider Family Medicine
DX: I10 Essential (primary) hypertension (principal); I48.91 Unspecified atrial fibrillation
CPT/HCPCS: 36415; 80053; 80061; 84443

== ENCOUNTER → 2023-09-28 13:47 | Outpatient (BNVA) | payer MEDICARE, OTHER, SELFPAY | PROVIDERS: PCP Family Medicine; Visit Provider Student in an Organized Health Care Education/Training Program | DX: S86.011D Strain of right Achilles tendon, subsequent encounter (principal); X58.XXXD Exposure to other specified factors, subsequent encounter | CPT/HCPCS: 99213 ==

== ENCOUNTER → 2023-10-13 13:56 | Outpatient (BNVA) | payer MEDICARE, OTHER, SELFPAY | PROVIDERS: PCP Family Medicine; Visit Provider Student in an Organized Health Care Education/Training Program | DX: M19.012 Primary osteoarthritis, left shoulder (principal) | CPT/HCPCS: 99212 ==

== ENCOUNTER → 2023-10-22 10:55 | Outpatient (BNVA) | payer MEDICARE, OTHER, SELFPAY | PROVIDERS: PCP Family Medicine; Visit Provider Internal Medicine Cardiovascular Disease | DX: I10 Essential (primary) hypertension (principal); I48.91 Unspecified atrial fibrillation; I42.8 Other cardiomyopathies; Z98.890 Other specified postprocedural states | CPT/HCPCS: 99213 ==

== ENCOUNTER → 2023-11-12 04:26 | Outpatient (CLI) | payer MEDICARE, OTHER, SELFPAY ==
--- NOTE | 2023-11-12 15:45 | DI.US_ITS ---
APPROVED REPORT EXAM: Comprehensive 2D, Doppler, and color-flow Echocardiogram Patient Location: Out-Patient Flight Physician: Dixon Bush RDCS (AE) Indications: mitral insufficiency, louder murmur Conclusion Normal left ventricular wall thickness and chamber size. Ejection fraction is 55%. Wall motion is n ormal Normal right ventricular size and function Left atrium is mildly dilated. Normal right atrial size Aortic valve is trileaflet and sclerotic without stenosis or regurgitation Mildly thickened mitral leaflets with mild eccentric mitral regurgitation Trace tricuspid regurgitation. Estimated right ventricular systolic pressure is 23 mmHg Wall motion Left Ventricle The left ventricle is normal size. Left ventricular systolic function is normal There is normal left ventricular wall thickness. No segmental wall motion abnormalities There is no ventricular septal def ect visualized. LVEF is 55%. Right Ventricle The right ventricle is normal size. The right ventricular systolic function is normal. Atria Left atrium is mildly dilated. Right atrium is normal The interatrial septum is intact with no eviden ce for an atrial septal defect. Aortic Valve The Aortic valve is sclerotic. Aortic valve is trileaflet. There is no aortic valvular stenosis. No a ortic regurgitation is present. Mitral Valve Mildly thickened mitral leaflets No evidence of mitral valve stenosis. Mild mitral regurgitation. Tricuspid Valve The tricuspid valve is normal in structure. There is no tricuspid valve stenosis. Trace tricuspid reg urgitation. The RVSP is 22.7 mmHg. Pulmonic Valve The pulmonary valve is normal in structure. There is no pulmonic valvular stenosis. Trace pulmonic re gurgitation. Great Vessels The aortic root is normal in size. The ascending aorta is normal in size. Aortic arch is not well vis ualized. IVC is normal in size and collapses >50% with inspiration. Pericardium No significant pericardial effusion 2D Dimensions IVSD d PLAX 0.97 cm F: 0.6-1.0 Ao Root d 2.68 cm F: 2.7 - 3.3 LVPW d PLAX 0.96 cm F: 0.6 - 1.0 Ao Asc Diam d 2.99 cm F: 2.3 - 3.1 LVID d PLAX 3.77 cm F: 3.8 - 5.2 LVDs 2.75 cm F: 2.2 - 3.5 LV EF Teichholz 53.6 % FS 27.11 % LV EDV (Teich) 60.9 mL LV ESV (Teich) 28.3 mL Stroke Vol Index (Teich) 18.23 M-Mode TAPSE 2.69 cm (M/F) >1.7 Auto EF LV EDV A4C 94.5 mL LV EDV A2C 120.2 mL LV EDV BP 107.3 mL LV ESV A4C 42.6 mL LV ESV A2C 58.4 mL LV ESV BP 49.2 mL LVEF(%) A4C 55.0 % LVEF(%) A2C 51.4 % LVEF(%) BP 54.1 % LV SV A4C 52.0 ml LV SV A2C 61.8 ml LV SV BP 58.0 ml LV CO A4C 3.3 L/min LV CO A2C 3.6 L/min LV CO BP 3.4 L/min HR A4C 63.72 BPM HR A2C 57.58 BPM LV EDV Index (BP) LA Volume LA Length A4C 6.3 cm LA Length A2C 6.3 cm LA Area A4C s 20.11 cm2 LA Area A2C s 27.05 cm2 LA Vol A4C A-L 54.68 mL LA Vol A2C A-L 98.27 mL LA Vol Biplane A-L 73.5 mL LA Vol/BSA A4C A-L LA Vol/BSA A2C A-L LA Vol/BSA BP A-L 41.1 mL/m2 LA Vol A4C MOD 52.1 mL LA Vol A2C MOD 91.5 mL LA Vol BP MOD 69.1 mL RA Volume RA Area A4C 12.5 cm2 RA ESV A4C (A-L) 26.5mL RA Vol/BSA A4C A-L RA Length A4C 5.0 cm RA ESV A4C (MOD) 24.0mL LV Diastology MV E Vmax 1.10 (0.4-1.3 m/s) MV A Vmax 1.00 (0.4-1.3 m/s) E/A Ratio 1.1 Aortic Valve AoV Vmax 1.85 m/s LVOT Vmax 0.74 m/s AoV Peak Grad 13.7 mmHg LVOT Peak Grad 2.2 mmHg AoV Area (Vmax) 1.18 cm2 LVOT VTI 0.170 m AoV VTI 0.360 m LVOT Mean Grad 1.3 mmHg AoV Mean Kishore. 1.46 m/s LVOT SV 50.68 mL AoV Mean Grad 9.2 mmHg LVOT Diam s 1.90 cm AoV Area (VTI) 1.41 cm2 Velocity Ratio 0.40 Mitral Valve MV DT 249 (160-240 msec) MR Vmax 5.71 m/s MV Vmax TIPS 1.08 m/s MR VTI 2.013 m MV Mean Grad 1.8 (<2mmHg) MR Peak Grad 130.3 mmHg MV VTI 0.322 m MR Mean Grad 77.6 mmHg MR PISA Radius 0.78 cm MR Aliasing Velocity 0.36 m/s Tricuspid Valve RA Pressure 3.00 mmHg TR Vmax 2.22 m/s TR Peak Grad 19.7 mmHg RVSP (TR) 22.7 mmHg
== END ==
PROVIDERS: PCP Family Medicine; Visit Provider Family Medicine
DX: I34.0 Nonrheumatic mitral (valve) insufficiency (principal); I51.7 Cardiomegaly
CPT/HCPCS: 93306

== ENCOUNTER → 2023-12-28 13:34 | Outpatient (BNVA) | payer MEDICARE, OTHER, SELFPAY | PROVIDERS: PCP Family Medicine; Visit Provider Student in an Organized Health Care Education/Training Program | DX: M79.671 Pain in right foot (principal) | CPT/HCPCS: 99213 ==

== ENCOUNTER 2023-12-30 15:01 | Outpatient (CLI) | payer MEDICARE, OTHER, SELFPAY ==
--- NOTE | 2023-12-30 13:43 | DI.RAD_ITS ---
Exam(s) XR HIP LT COMPLETE AP PELVIS EXAM: XR HIP LT COMPLETE AP PELVIS CLINICAL HISTORY: left hip pain. TECHNIQUE: 2D digital imaging was performed. Three views. COMPARISON: CR XR PELVIS AP from 07/29/2021 FINDINGS: BONES: No acute fracture is present. No bony destructive lesion is seen. Enthesophytes noted at great er trochanters and iliac wings. Hardware in L5-S1. JOINTS: No dislocation present. Hip joint spaces are maintained. Minimal periarticular spurring. Mild degenerative changes at SI joints and pubic symphysis. SOFT TISSUE: Normal. IMPRESSION: Mild degenerative changes. DATA REPOSITORY: RADIATION DOSE DELIVERED:
== END 2023-12-30 15:02 | disposition home or self-care (01) ==
LOC: DIORS 15:02
PROVIDERS: PCP Family Medicine; Referring Provider Family Medicine
DX: M70.62 Trochanteric bursitis, left hip
CPT/HCPCS: 99213; 73502

== ENCOUNTER → 2024-01-03 18:53 | Outpatient (CLI) | payer MEDICARE, OTHER, SELFPAY ==
--- NOTE | 2024-01-03 10:20 | DI.RAD_ITS ---
Exam(s) XR CHEST 2V PA LATERAL EXAM: XR CHEST 2V PA LATERAL CLINICAL HISTORY: evaluate pathology, COUGH, R05.9 TECHNIQUE: 2D digital imaging was performed of the chest. Two images were obtained. PA and lateral views were obtained. COMPARISON: CR XR PORTABLE CHEST AP from 08/16/2019 CR XR PORTABLE CHEST AP from 08/16/2019 CR XR PORTABLE CHEST AP from 09/04/2019 FINDINGS: MEDIASTINUM: Normal. HEART: Normal. PULMONARY VASCULATURE: There is prominence of the right hilum which may be due to position but a cent ral mass cannot be excluded. LUNGS: No focal consolidating infiltrates are seen. PLEURAL SPACE: No pleural effusion or pneumothorax. BONE:Within normal limits for the patient's age. There is a right convex scoliosis of the thoracic s pine. There is a mild pectus excavatum deformity. OTHER FINDINGS:There again seen surgical clips in the right upper quadrant of the abdomen. IMPRESSION: 1. Prominence of the right hilum. This may be due to rotation/positioning of the patient. Right hil ar mass or adenopathy cannot be excluded. CT scan should be considered for further evaluation. 2. No definite focal consolidating infiltrates are seen. Unexpected findings DATA REPOSITORY: RADIATION DOSE DELIVERED:
== END ==
PROVIDERS: PCP Family Medicine; Visit Provider Nurse Practitioner Family
DX: R05.9 Cough, unspecified (principal)
CPT/HCPCS: 71046

== ENCOUNTER → 2024-01-31 01:17 | Outpatient (CLI) | payer MEDICARE, OTHER, SELFPAY ==
[2024-01-31 14:29] LABS: HCT 39.6 % (36.0-46.0); HGB 12.5 g/dL (11.2-15.7); MCH 28.5 pg (27.0-33.0); MCHC 31.6 % (32.0-36.0); MCV 90 fL (80-95); MPV 9.3 fL (8.0-11.0); Platelet Count 145 10^3/uL (130-400); RBC 4.39 10^6/uL (3.93-5.22); RDW 14.2 % (11.7-14.6); RDW-SD 47.3 fL; WBC 5.95 10^3/uL (4.4-10.8)
[2024-01-31 15:32] LABS: ALT 20 U/L (14-59); AST 28 U/L (15-37); Albumin 3.5 g/dL (3.4-5.0); Alkaline Phosphatase 66 U/L (46-116); Anion Gap 8.3 mmol/L (3-11); BUN 27 mg/dL (7-18); Bilirubin, Total 0.38 mg/dL (0.2-1.0); CO2 29.7 mmol/L (21.0-32.0); CREATININE 0.9 mg/dL (0.55-1.02); Calcium 9.5 mg/dL (8.5-10.1); Chloride 103 mmol/L (98-107); Estimated GFR 63.43 (mL/min/1.73m2); Glucose 98 mg/dL (74-106); Potassium 4.3 mmol/L (3.5-5.1); Sodium 141 mmol/L (136-145); Total Protein 7.3 g/dL (6.4-8.2)
[2024-01-31 15:38] LABS: Hemoglobin A1C 6.8 % (<5.7)
--- NOTE | 2024-01-31 15:42 | DI.CT_ITS ---
Exam(s) CT CHEST W EXAM: CT CHEST W CLINICAL HISTORY: Hilar density, J98.4, abnl CXR - recommended CT. TECHNIQUE: Multi planar reconstructions were performed. CONTRAST MATERIAL: Omnipaque 350; 75 cc COMPARISON: CT CHEST WITHOUT CONTRAST from 04/11/[address] CHEST PE CTA from 08/16/2019 CR XR CHEST 2V PA LATERAL from 01/03/2024 FINDINGS: CHEST: LUNGS: There is no evidence of right parahilar mass nor mass elsewhere in either lung field. There a re few tiny calcified granulomas in the right lung. Mild increased markings noted in the inferior li ngular segment, having appearance of benign infiltrate. There are no pleural effusions. No ominous pulmonary nodules. No findings in the trachea and mainstem bronchi. No bronchiectasis. MEDIASTINUM: There is no hilar nor mediastinal adenopathy. A large nodule in the right thyroid lobe is again noted, seen on images dating back to 2013. It appears partially calcified versus irregular opacification. CARDIAC: Mild cardiomegaly. No pericardial effusion.Caliber of the thoracic aorta is within normal l imits. No evidence of dissection. VISUALIZED UPPER ABDOMEN:Gallbladder is surgically absent. Well-defined hypodensities in the left he patic lobe appear unchanged from 2014 and consistent with benign cysts. The largest measures 2.3 cm. OSSEOUS: No significant osseous lesions.No fractures.. IMPRESSION: 1. There is no evidence of right hilar/perihilar mass, as suggested on recent chest x-ray of 01/03/20 24. Also no evidence of hilar nor mediastinal adenopathy. 2. There is mild infiltrate in the inferior lingular segment of the left lung. There are no pleural effusions. 3. No ominous pulmonary nodules. 4. There is mild cardiomegaly. No pericardial effusion. No evidence of pulmonary edema at this tayler e RADIATION DOSE DELIVERED: Total DLP DATA REPOSITORY: All CT scans at this facility are submitted to the National Radiology Data Registry (NRDR) Dose Index Registry (DIR) with the [employer] ([employer]). RADIATION OPTIMIZATION: All CT scans at this facility use at least one of these dose optimization te chniques: automated exposure control; mA and/or kV adjustment per patient size (includes targeted exa ms where dose is matched to clinical indication); or iterative reconstruction.
[2024-01-31] MEDS: Omnipaque 350 MG/ML 100 ML BTL IJ (15:45)
[2024-01-31] MEDS: Normal Saline - Diluent 50 ML VIAL IJ (15:46)
== END ==
PROVIDERS: PCP Family Medicine; Visit Provider Family Medicine
DX: E11.9 Type 2 diabetes mellitus without complications; I10 Essential (primary) hypertension; Z79.01 Long term (current) use of anticoagulants; J98.4 Other disorders of lung; Z01.812 Encounter for preprocedural laboratory examination; I51.7 Cardiomegaly
CPT/HCPCS: 80053; 85027; 71260; 83036; J3490

== ENCOUNTER 2024-02-24 02:53 | Outpatient (CLI) | payer MEDICARE, OTHER, SELFPAY ==
--- NOTE | 2024-02-24 08:45 | DI.RAD_ITS ---
Exam(s) RF JOINT INJ. FLUORO GUID RAD EXAM: RF JOINT INJ. FLUORO GUID RAD CLINICAL HISTORY: L SHOULDER PAIN,FLUORO GUIDED INJECTION,M19.012,ARTHRITIS. The Patient has had pe rsistent left shoulder pain. Noninvasive measures have been tried. To serve as both diagnostic and therapeutic, an injection under fluoroscopy was recommended. The risks of the procedure were discuss ed with their Orthopedic provider and the patient elected to proceed. TECHNIQUE: 2D and realtime digital imaging was performed. CONTRAST MATERIAL: Water soluble contrast was utilized. COMPARISON: No exams were available for comparison FINDINGS: The Patient was greeted in the fluoroscopy room. The correct side was identified and the consent was reviewed with the patient and was signed. The patient was properly positioned on the fluoroscopy ta ble. The left shoulderwas then prepped with Chloraprep and draped. The left shoulder injection star ting point was identified by the bony landmarks and fluoroscopy. The skin and soft tissue in the tra ct of the injection was anesthetized with 1% Lidocaine. A spinal needle was then inserted into the l eft shoulder joint at the level of the glenohumeral joint under fluoroscopic guidance. A small amoun t of Omnipaque solution was injected to confirm intraarticular placement. Once confirmed, the left s houlder was injected with 5cc of a solution containing 0.5% Bupivaine and 80 mg of Depo-Medrol. A ba ndaid was placed on the injection site. The patient tolerated the procedure well and left the depart ment in good condition. IMPRESSION: Successful left shoulder injection. RADIATION DOSE DELIVERED: Ka,r=2.29 mGy
[2024-02-24] MEDS: Normal Saline - Diluent 50 ML VIAL 10 ML IJ (14:20)
[2024-02-24] MEDS: Omnipaque 300 MG/ML 10 ML BTL IJ (14:21)
[2024-02-24] MEDS: Bupivacaine 0.5% Pres-Free 10 ML VIAL IJ (14:22)
[2024-02-24] MEDS: methylPREDNISolone ACETATE 80 MG/ML VIAL IM (14:28)
== END 2024-02-24 03:13 ==
LOC: DI 02:53
PROVIDERS: PCP Family Medicine; Visit Provider Student in an Organized Health Care Education/Training Program
DX: M19.012 Primary osteoarthritis, left shoulder (principal)
CPT/HCPCS: 20610; 77002; J0665; J1010

== ENCOUNTER 2024-03-10 14:43 | Outpatient (CLI) | payer MEDICARE, OTHER, SELFPAY ==
--- NOTE | 2024-03-10 15:05 | DI.RAD_ITS ---
Exam(s) XR LUMBAR SPINE COMPLETE EXAM: XR LUMBAR SPINE COMPLETE CLINICAL HISTORY: mid back pain, M54.9 dorsalgia. TECHNIQUE: 2D digital imaging was performed. Five views. COMPARISON: MR MR LUMBAR SPINE WO/W from 08/11/2021 FINDINGS: BONES: No fracture or destructive lesion. Vertebral body heights are maintained. Posterior fusion hardware present at L5-S1 with disc spacer. Prominent endplate osteophytes. Facet degenerative changes greatest at L3-4 and L4-5. DISKS: Multilevel disc space narrowing, greatest at L3-4. ALIGNMENT: Mild levoscoliosis at the thoracolumbar junction. SOFT TISSUE: The aorta shows calcification and is normal in diameter. IMPRESSION: Postsurgical and degenerative changes. DATA REPOSITORY: RADIATION DOSE DELIVERED:
--- NOTE | 2024-03-10 15:05 | DI.RAD_ITS ---
Exam(s) XR THORACIC SPINE COMPLETE EXAM: XR THORACIC SPINE COMPLETE CLINICAL HISTORY: mid back pain, dorsalgia, M54.9. TECHNIQUE: 2D digital imaging was performed. Three views. COMPARISON: No exams were available for comparison FINDINGS: BONES: There is no fracture or destructive lesion. Prominent endplate osteophytes. ALIGNMENT: Moderate dextroscoliosis. DISKS: Interverebral disc spaces are maintained. SOFT TISSUE: Visualized lungs are clear. The heart is enlarged. IMPRESSION: Degenerative changes and scoliosis. DATA REPOSITORY: RADIATION DOSE DELIVERED:
== END 2024-03-10 15:03 ==
LOC: DI 14:44
PROVIDERS: PCP Family Medicine; Visit Provider Family Medicine
DX: M51.35 Other intervertebral disc degeneration, thoracolumbar region (principal)
CPT/HCPCS: 72072; 72110

== ENCOUNTER 2024-03-11 03:11 | Emergency (ER) | payer MEDICARE, OTHER, SELFPAY ==
[2024-03-11 03:17] VITALS: BP 157/69; PULSE 83; RESP 18; TEMP 36.5; O2SAT 97
[2024-03-11] MEDS: Acetaminophen 500 MG TAB 1000 MG PO (04:23)
[2024-03-11] MEDS: Lidocaine 5% Patch 2 PATCH TP (04:23)
[2024-03-11] MEDS: diazePAM 2 MG TAB PO ×2 (04:23→05:33)
[2024-03-11] MEDS: Ketorolac 15 MG/ML VIAL IM (04:23)
--- NOTE | 2024-03-11 04:25 | W.ED.GENAD ---
Discharge Plan Disposition Patient Disposition: Home Condition: Good Discharge Details Clinical Impression: Low back pain Primary Care Provider: Tana Adler ED Provider: Bernie Plascencia Home Meds and New Rx's Prescriptions: Continued fluticasone propionate 50 mcg/actuation spray,suspension 1 spray NS BID PRN (Reason: nasal congestion) Qty: 3 6RF apixaban 2.5 mg tablet 2.5 mg PO BID Qty: 180 4RF glipizide 5 mg tablet extended release 24hr 5 mg PO DAILY Qty: 90 4RF (DME) blood-glucose meter [OneTouch Ultra2 Meter] Misc See Rx Instructions .MEDSUPPLY Qty: 1 4RF Rx Instructions: Check blood sugar once a day (DME) OneTouch Verio test strips Strip See Rx Instructions .MEDSUPPLY Qty: 100 4RF Rx Instructions: Check blood sugar once a day (DME) lancets Misc See Rx Instructions .MEDSUPPLY Qty: 100 4RF Rx Instructions: Check blood sugar once a day cetirizine 10 mg tablet 10 mg PO BID PRN (Reason: allergy symptoms) Qty: 180 4RF multivitamin 1 EACH tablet 1 ea PO DAILY calcium carbonate-vitamin D3 [Caltrate with Vitamin D3] 600 mg(1,500mg) -800 unit tablet 1 tab PO DAILY triamcinolone acetonide 0.1 % cream 1 applic TP BID PRN (Reason: rash) Qty: 80 4RF Rx Instructions: apply to hands as needed temazepam [Restoril] 15 mg capsule 15 mg PO HS Qty: 90 1RF metoprolol succinate 25 mg tablet extended release 24 hr 25 mg PO DAILY Qty: 90 3RF duloxetine 60 mg capsule,delayed release(DR/EC) 60 mg PO DAILY Qty: 90 11RF estradiol [Vagifem] 10 mcg tablet 10 mcg VG TWICE A WEEK Qty: 24 4RF tramadol 50 mg tablet 50 - 100 mg PO Q6H PRN PRN (Reason: pain) Qty: 56 2RF (DME) lancets [FreeStyle Lancets] 28 gauge misc See Rx Instructions .ROUTE .MEDSUPPLY Qty: 100 5RF Rx Instructions: daily testing E11.9 (DME) FreeStyle Test Strip See Rx Instructions .Route Qty: 100 4RF Rx Instructions: As directed E11.9; once daily omeprazole 40 mg capsule,delayed release(DR/EC) 40 mg PO DAILY Qty: 90 4RF metformin 500 mg tablet 500 mg PO DAILY Qty: 90 3RF acetaminophen 500 mg tablet 500 mg PO Q6H PRN (Reason: pain) Qty: 60 0RF Discharge Instructions Instructions: Low Back Pain ED Additional Instructions: Tylenol over the counter for pain; follow the directions on the bottle. You can also use heat packs. Lidocaine patch for pain on your right back; do not use heat at the same time as the lidocaine. You can keep taking tramadol during the day if needed as prescribed by your doctor. If you are having muscle spasms at night before pain, you can take the dose of diazapam we discharged you with. Make sure it has been at least 4 hours since you had tramadol and do not take any more tramadol until 8 hours after the diazapam. Diazapam will increase your risk of falling. Have someone with you when you get up to the bathroom if you take this. Do not drive while taking this medication. Keep your PCP appointment on Wednesday and discuss your visit here today. Return to the emergency department for new or worsening symptoms including fever, numbness/tingling/weakness, uncontrolled pain, or if you have any other concerns. Referrals: Tana Adler MD, [place] [Primary Care Provider] - Discharge Data Discharge Date/Time-TO BE ENTERED AT DEPARTURE: 03/11/24 05:37 HPI General Mode of arrival: ambulatory. Date/Time Provider Initiated Documentation: 03/11/24 03:22. Limitations to Documentation: no limitations. Information obtained by: patient and old records reviewed. HPI Narrative: 83yo F presenting with low back pain and muscle spasm. Started about two weeks ago and has been worsening since then. Pain is low lumbar/sacral, worse on the right, and sometimes radiates down both legs. Constant but will spike in severity with 'spasms'. Urinary incontinence at baseline; no bowel or bladder changes. No numbness, tingling, or weakness. No saddle anesthesia. No trauma, injury, or falls. No history of IVDU use. Has seen her PCP for this, is taking tramadol without improvement. Had XRs today. Otherwise in her usual state of health with no fevers, chills, rash, chest pain, shortness of breath, nausea, vomiting, abdominal pain, dysuria, hematuria, or other concerns. Related Data Home Medications ?Medication ?Instructions ?Recorded ?Confirmed multivitamin 1 ea PO DAILY 11/14/12 03/11/24 acetaminophen 500 mg tablet 500 mg PO Q6H PRN pain #60 tabs 02/09/19 03/11/24 calcium carbonate 600 mg-vitamin 1 tab PO DAILY 10/26/19 03/11/24 D3 20 mcg (800 unit) tablet (Caltrate with Vitamin D3) triamcinolone acetonide 0.1 % 1 applic topical BID PRN rash #80 02/11/23 03/11/24 topical cream grams fluticasone propionate 50 1 spray NS BID PRN nasal 03/22/23 03/11/24 mcg/actuation nasal congestion #3 ea spray,suspension temazepam 15 mg capsule (Restoril) 15 mg PO HS #90 tab-caps 05/21/23 03/11/24 cetirizine 10 mg tablet 10 mg PO BID PRN allergy symptoms 06/07/23 03/11/24 #180 tabs metoprolol succinate 25 mg 25 mg PO DAILY #90 tabs 06/30/23 03/11/24 tablet,extended release 24 hr blood sugar diagnostic (OneTouch #100 ea 08/09/23 03/11/24 Verio test strips) blood-glucose meter (OneTouch #1 ea 08/09/23 03/11/24 Ultra2 Meter) lancets #100 ea 08/09/23 03/11/24 duloxetine 60 mg capsule,delayed 60 mg PO DAILY #90 tab-caps 09/29/23 03/11/24 release estradiol 10 mcg vaginal tablet 10 mcg vaginal TWICE A WEEK #24 11/04/23 03/11/24 (Vagifem) tab-caps apixaban 2.5 mg tablet 2.5 mg PO BID #180 tabs 12/13/23 03/11/24 glipizide 5 mg tablet, extended 5 mg PO DAILY #90 tabs 12/13/23 03/11/24 release 24 hr tramadol 50 mg tablet 50 - 100 mg (1 - 2 x 50 mg) PO Q6H 12/27/23 03/11/24 PRN PRN pain #56 tabs blood sugar diagnostic (FreeStyle #100 ea 01/14/24 03/11/24 Test strips) lancets 28 gauge (FreeStyle #100 ea 01/14/24 03/11/24 Lancets) omeprazole 40 mg capsule,delayed 40 mg PO DAILY #90 tab-caps 02/23/24 03/11/24 release metformin 500 mg tablet 500 mg PO DAILY #90 tabs 03/07/24 03/11/24 Previous Rx's ?Medication ?Instructions ?Recorded acetaminophen 500 mg tablet 500 mg PO Q6H PRN pain #60 tabs 02/09/19 triamcinolone acetonide 0.1 % 1 applic topical BID PRN rash #80 02/11/23 topical cream grams fluticasone propionate 50 1 spray NS BID PRN nasal 03/22/23 mcg/actuation nasal congestion #3 ea spray,suspension temazepam 15 mg capsule (Restoril) 15 mg PO HS #90 tab-caps 05/21/23 cetirizine 10 mg tablet 10 mg PO BID PRN allergy symptoms 06/07/23 #180 tabs metoprolol succinate 25 mg 25 mg PO DAILY #90 tabs 06/30/23 tablet,extended release 24 hr blood sugar diagnostic (OneTouch #100 ea 08/09/23 Verio test strips) blood-glucose meter (OneTouch #1 ea 08/09/23 Ultra2 Meter) lancets #100 ea 08/09/23 duloxetine 60 mg capsule,delayed 60 mg PO DAILY #90 tab-caps 09/29/23 release estradiol 10 mcg vaginal tablet 10 mcg vaginal TWICE A WEEK #24 11/04/23 (Vagifem) tab-caps apixaban 2.5 mg tablet 2.5 mg PO BID #180 tabs 12/13/23 glipizide 5 mg tablet, extended 5 mg PO DAILY #90 tabs 12/13/23 release 24 hr tramadol 50 mg tablet 50 - 100 mg (1 - 2 x 50 mg) PO Q6H 12/27/23 PRN PRN pain #56 tabs blood sugar diagnostic (FreeStyle #100 ea 01/14/24 Test strips) lancets 28 gauge (FreeStyle #100 ea 01/14/24 Lancets) omeprazole 40 mg capsule,delayed 40 mg PO DAILY #90 tab-caps 02/23/24 release metformin 500 mg tablet 500 mg PO DAILY #90 tabs 03/07/24 Allergies Allergy/AdvReac Type Severity Reaction Status Date / Time black flies Allergy Severe Hives/swell Uncoded 03/11/24 03:20 ing General Stated Complaint: Orthopedic DEANNA: 4 Review of Systems Narrative: see HPI Exam Narrative Exam Narrative: General: Alert, well appearing, well nourished, in no acute distress. Head: Normocephalic, atraumatic Neck: Trachea midline, ?Neck supple. Cardiac: ?Well perfused Resp: No respiratory distress. Speaking in full sentences. Abd: ?Soft, non-distended, nontender : ?No suprapubic tenderness. No CVA tenderness. Extremities: ?No deformities.? No peripheral edema. Back: Right low lumbar paraspinal spasm and tenderness. Left low lumbar paraspinal tenderness without spasm. No midline bony tenderness in C, T, or L spine. Neuro: ? GCS 15.? Motor- 5/5 strength symmetric bilateral lower extremities including hipflexors/extensors, knee flexors/extensors, ankle dorsiflexors and planter flexors. Sensation- ?Intact to light touch and symmetric multiple dermatomes bilateral lower extremities. No saddle anesthesia Reflexes- 1/4 achilles & patellar, no clonus Gait/station: ?Normal stance.? No truncal ataxia. Steady gait with equal normal steps Course Vital Signs Vital signs: Vital Signs Temperature 36.5 C 03/11/24 03:17 Pulse 83 03/11/24 03:17 Respiratory Rate 18 03/11/24 03:17 Blood Pressure 157/69 H 03/11/24 03:17 Pulse Oximetry 97 03/11/24 03:17 Temperature 36.5 C 03/11/24 03:17 Temperature Source Temporal Artery Scan 03/11/24 03:17 Pulse 83 03/11/24 03:17 Respiratory Rate 18 03/11/24 03:17 Respiratory Effort Normal, Non-Labored 03/11/24 03:19 Blood Pressure 157/69 H 03/11/24 03:17 Blood Pressure Position Sitting 03/11/24 03:17 Pulse Oximetry 97 03/11/24 03:17 Oxygen Delivery Method Room Air 03/11/24 03:17 Oxygen Flow Rate 0 03/11/24 03:17 Pain Level 8 03/11/24 04:23 Medical Decision Making 83yo F presenting with low back pain and muscle spasm. Started about two weeks ago and has been worsening since then. No trauma, no neurologic symptoms; other than age no red flags for back pain. Plain films earlier today; reports reviewed wt degenerative changes noted. Vital signs reassuring on arrival, normal neurologic exam, palpable right paraspinal lumbar spasm and no midline tenderness. Low suspension for fracture, cord compression, cadua equina, spinal epidural hematoma, etc; would not get advanced imaging/CT/MRI. No indication for labs. Will treat symptoms with tylenol, single dose of toradol (caution with NSAIDs as she is on eliquis), lidocaine patch, and 2mg PO diazapam for spasm. Discussed with patient risks vs benefits of diazapam including elevated risk of falls; after shared decision making decided will prescribe, particularly as her pain/spasm is likely also increasing her fall risk. On reassessment pain much improved. On exam spasm has released, significant right lumbar paraspinal tenderness in area of prior spasm. Advised symptomatic treatment at home, will send with single dose of oral diazapam if necessary in evening for recurrent pain/spasm. Reviewed strategies to mitigate fall risk and instructed patient not to take along with tramadol. Discharged home to followup with PCP; discharge instructions and return precautions were reviewed with patient who verbalized understanding. All questions were answered and she is in full agreement with the plan. Medical Records Medical records reviewed: Yes I reviewed the patient's medical records. Medical records narrative: Radiology report plain films 03/11/24: Tspine: IMPRESSION: Degenerative changes and scoliosis Lspine: IMPRESSION: Postsurgical and degenerative changes. (Posterior fusion hardware present at L5-S1 with disc spacer) Quality:SDOH Health Related Social Needs: Health related social needs inadequate housing Health related social needs details none PFSH All Active Problems (Updated 03/11/24 @ 05:22 by Bernie Plascencia MD) Low back pain (Acute) Mid back pain (Acute) Hilar density (Acute) Trochanteric bursitis, left hip (Acute) Acute pain of left hip (Acute) Pain of right heel (Acute) Arthritis of left glenohumeral joint (Acute) Elevated glucose level (Acute) Pelvic floor dysfunction (Acute) Mid-back pain, acute (Acute) Rupture of right Achilles tendon (Acute 06/18/23) Arthritis of right wrist (Acute) Right ankle injury (Acute) Neck pain on left side (Acute) Left shoulder pain (Acute) H/O cardiac radiofrequency ablation (Acute) [place] [facility]. Leslie Right thyroid nodule (Acute) Sacroiliac dysfunction (Acute) Balance disorder (Acute) Sialoadenitis (Acute) Thyroid nodule (Acute) Diabetes mellitus (Chronic) Atrial fibrillation with rapid ventricular response (Acute) Atrial fibrillation (Chronic) Mitral regurgitation (Chronic) Cardiomyopathy (Acute) Tendonitis of left rotator cuff (Acute) Injection: 02/17/2019 Carpal tunnel syndrome (Chronic 06/10/02) Plantar fasciitis (Chronic 03/18/10) Tubular adenoma of colon (Chronic 06/28/14) Neuropathy (Chronic 06/24/15) Multinodular goiter (Chronic 04/11/14) calcified mass - bx recommmended 04/24 Impaired renal function disorder (Chronic) Hyperlipidemia (Chronic 11/15/12) Gastroesophageal reflux disease with esophagitis (Chronic) Essential hypertension (Chronic 11/15/12) 02/02/19: Pt denies. 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 -BR Meniere disease occasional episodes H/O sigmoidoscopy 07/12/00 Carpal tunnel syndrome 06/10/02 right PMR (polymyalgia rheumatica) 06/10/07 on prednisone Plantar fasciitis 03/18/10 Abnormal ECG 02/23/13 Other specified arthropathy, other specified sites 08/07/14 facet arthropathy, lumbar Pyogenic arthritis of knee 06/23/16 due to unspecified organism, unspecified unilaterally Thyroid nodule (09/30/17) Shoulder pain (06/10/03) right shoulder bursitis; AC DJD; Left MRI:full thickness right rotator cuff tear Other diseases of stomach and duodenum (09/29/17) 09/29/17-FOCAL INTESTINAL METAPLASIA;DR. CEBALLOS Lung nodule seen on imaging study (03/27/14) negative CT 04/2014 Knee pain (06/10/03) S/P knee replacement Facet arthropathy, lumbar (08/07/14) Elevated fasting glucose (05/07/14) Campylobacter diarrhea (05/18/16) Asthma 02/02/19: Pt denies having asthma. -BR History of infection of total joint prosthesis of knee Sepsis Weakness Nausea & vomiting Surgical History Carpal tunnel syndrome of right wrist (02/10/19) S/P laparoscopic hysterectomy S/P tonsillectomy and adenoidectomy H/O arthroscopy of knee B/L S/P appendectomy S/P cholecystectomy 07/12/85 S/P right rotator cuff repair 07/12/04 Replacement of total knee joint B/L, LEFT WITH REVISION 04/2014 Sigmoidoscopy (~2000) EGD - MAC (09/29/17) Colonoscopy - MAC (09/29/17) 05/28/14 BACK SURGERY (~11/2014) Rods placed Family History Mother , 91 Dementia Cancer 02/02/19: Pt denies cancer in mother. -BR Father , [place] at age 57. Heart disease [place] Hyperlipidemia Sister No problems noted. Brother No problems noted. Maternal Grandfather , 50 Cancer Paternal Grandfather , 50 No problems noted. Maternal Grandmother Breast cancer Paternal Grandmother No problems noted. Son No problems noted. Daughter No problems noted. Social History Smoking/Tobacco Use Status: Never Second Hand Exposure: Yes Smoking risk assessment performed?: Yes Alcohol Intake: current Alcohol Intake frequency: a few times a month Alcohol type: wine Drug use: Never Substance use type: does not use Adopted: No Caregiver/Support person: No Household members: spouse Housing: house Number of Children: 2 number of grandchildren: 1 Communication Needs: None Education Level: college Do you need help understanding health information?: Never current occupation: homemaker Pets and animals: Yes Pets and animals: dog(s) Sexually active: Yes Do you think of yourself as: straight/heterosexual Current gender identity: female What is your relationship status?: How often do you talk on the phone with friends or family?: three or more times per week How often do you get together with friends or relatives?: once per week How often do you attend oriental orthodox or adventist services?: decline to answer Do you belong to any clubs or organized social groups?: yes Panel score (0-1 are the most socially isolated patients): 3 What type of physical activity do you participate in: none Duration: 30-45 minutes/day Frequency: does not exercise Leann/Jewish: Oriental Orthodox Special leann needs: No Seatbelt use: always Helmet use: No Drive intox or ride w/intox ambulance driver paramedic: No Firearms in home: Yes Firearms unloaded and locked: Yes Do you feel safe at home: Yes Do you feel safe in your relationship?: Yes Victim of physical abuse: No Victim of emotional abuse: No Victim of sexual abuse: No Would you like helpful sources: No
[2024-03-11 05:31] VITALS: BP 115/70; PULSE 72; RESP 16; TEMP 36.3; O2SAT 95
== END 2024-03-11 05:37 | disposition home or self-care (01) ==
PROVIDERS: Emergency Provider Student in an Organized Health Care Education/Training Program; PCP Family Medicine
DX: M54.50 Low back pain, unspecified (principal); M62.830 Muscle spasm of back; Z98.1 Arthrodesis status; K21.9 Gastro-esophageal reflux disease without esophagitis; I48.91 Unspecified atrial fibrillation; Z79.01 Long term (current) use of anticoagulants; Z79.899 Other long term (current) drug therapy
CPT/HCPCS: 96372; 99284; 99283; J1885

== ENCOUNTER 2024-05-11 02:55 | Outpatient (CLI) | payer MEDICARE, OTHER, SELFPAY ==
[2024-05-11 13:39] LABS: Abs Immature Grans 0.02 10^3/uL (0.0-0.06); Absolute Basophil Count 0.04 10^3/uL (0.0-0.2); Absolute Eosinophil Count 0.23 10^3/uL (0.0-0.7); Absolute Lymphocyte Count 1.92 10^3/uL (1.2-3.4); Absolute Monocyte Count 0.55 10^3/uL (0.1-0.8); Absolute Neutrophil Count 3.84 10^3/uL (1.2-6.7); Basophils % 0.6 %; Eosinophils % 3.5 %; HCT 41.1 % (36.0-46.0); HGB 13.3 g/dL (11.2-15.7); Immature Grans % 0.3 %; Lymphocytes % 29.1 %; MCH 29.1 pg (27.0-33.0); MCHC 32.4 % (32.0-36.0); MCV 90 fL (80-95); MPV 10.5 fL (8.0-11.0); Monocytes % 8.3 %; Neutrophils % 58.2 %; Platelet Count 181 10^3/uL (130-400); RBC 4.57 10^6/uL (3.93-5.22); RDW 14.3 % (11.7-14.6); RDW-SD 46.9 fL
[2024-05-11 14:00] LABS: ALT 15 U/L (14-59); AST 20 U/L (15-37); Albumin 3.8 g/dL (3.4-5.0); Alkaline Phosphatase 76 U/L (46-116); Anion Gap 11.6 mmol/L (3-11); BUN 31 mg/dL (7-18); Bilirubin, Total 0.41 mg/dL (0.2-1.0); CO2 26.4 mmol/L (21.0-32.0); CREATININE 0.9 mg/dL (0.55-1.02); Calcium 9.6 mg/dL (8.5-10.1); Chloride 107 mmol/L (98-107); Estimated GFR 63.43 (mL/min/1.73m2); Glucose 89 mg/dL (74-106); Potassium 4.3 mmol/L (3.5-5.1); Sodium 145 mmol/L (136-145); Total Protein 7.6 g/dL (6.4-8.2)
[2024-05-16 08:56] LABS: Indication for Study CML
[2024-05-16 08:57] LABS: BCR-ABL1 p210 FusionTranscript See Comments
[2024-05-16 08:58] LABS: BCR-ABL1 Interpretation See Comments
[2024-05-16 09:00] LABS: Limitations and Disclaimers See Comments
== END 2024-05-11 02:56 | disposition home or self-care (01) ==
LOC: LBO 02:56
PROVIDERS: PCP Family Medicine; Visit Provider Internal Medicine Hematology & Oncology
DX: C92.10 Chronic myeloid leukemia, BCR/ABL-positive, not having achieved remission (principal)
CPT/HCPCS: 36415; 80053; 81206; 85025

== ENCOUNTER 2024-05-22 01:48 | Outpatient (CLI) | payer MEDICARE, OTHER, SELFPAY ==
--- NOTE | 2024-05-22 07:15 | DI.RAD_ITS ---
Exam(s) XR FOOT RT COMPLETE XR HEEL RT OS CALCIS EXAM: XR FOOT RT COMPLETE CLINICAL HISTORY: Right foot/heel pain,M79.671. TECHNIQUE: 2D digital imaging was performed. Three views. COMPARISON: CR XR ANKLE RT COMPLETE from 07/09/2023 CR XR HEEL RT OS CALCIS from 05/22/2024 FINDINGS: BONES: No acute fracture is present. No bony destructive lesion is seen. Prominent plantar calcaneal spur. JOINTS: No dislocation present. Degenerative changes greatest at tarsal metatarsal joints. Severe h ammertoe deformity of the 2nd toe which overlaps the 1st toe. SOFT TISSUE: Normal. IMPRESSION: Unremarkable prominent heel spur. Severe hammertoe deformity of the 2nd toe. DATA REPOSITORY: RADIATION DOSE DELIVERED:
== END 2024-05-22 02:08 ==
LOC: DI 01:48
PROVIDERS: PCP Family Medicine; Visit Provider Podiatrist
DX: M20.41 Other hammer toe(s) (acquired), right foot (principal); M79.671 Pain in right foot
CPT/HCPCS: 73630; 73650

== ENCOUNTER 2024-06-13 17:52 | Outpatient (REF) | payer MEDICARE, OTHER, SELFPAY ==
[2024-06-13 22:43] LABS: COMMENT (LAB VIEW ONLY) 95.03 mg/dL; Microalb ug/mg Crea 5.7 ug/mg Cr
== END 2024-06-13 17:53 | disposition home or self-care (01) ==
LOC: LBN 17:52
PROVIDERS: PCP Family Medicine; Visit Provider Family Medicine
DX: E11.9 Type 2 diabetes mellitus without complications (principal)
CPT/HCPCS: 82043; 82570

== ENCOUNTER 2024-06-14 08:47 | Outpatient (CLI) | payer MEDICARE, OTHER, SELFPAY ==
--- NOTE | 2024-06-14 08:45 | RT.EKG_ITS ---
APPROVED REPORT Exam: Resting ECG Reason for Exam: a fib Patient Location: O HR:84 bpm ECG Measurements Heart Rate 84 AXIS ID 164 P 48 QRSd 79 QRS -36 QT 347 T 40 QTc 411 Conclusion Sinus rhythm...normal P axis, V-rate 50- 99 Atrial premature complexes...SV complexes w/ short R-R intvls Left ventricular hypertrophy...multiple voltage criteria Inferior infarct, old...Q >35mS, II III aVF
== END 2024-06-14 08:48 | disposition home or self-care (01) ==
LOC: DI.CARD 08:48
PROVIDERS: PCP Family Medicine; Visit Provider Internal Medicine Cardiovascular Disease
DX: I48.91 Unspecified atrial fibrillation (principal); Z98.890 Other specified postprocedural states
CPT/HCPCS: 93010

== ENCOUNTER → 2024-06-14 10:24 | Outpatient (BNVA) | payer MEDICARE, OTHER, SELFPAY | PROVIDERS: PCP Family Medicine; Visit Provider Internal Medicine Cardiovascular Disease | DX: I48.91 Unspecified atrial fibrillation (principal); Z98.890 Other specified postprocedural states | CPT/HCPCS: 93005; 99214 ==

== ENCOUNTER 2024-06-15 02:15 | Outpatient (CLI) | payer MEDICARE, OTHER, SELFPAY ==
--- NOTE | 2024-06-15 08:45 | DI.MRI_ITS ---
Exam(s) MR LOWER JOINT RT WO EXAM: MR LOWER JOINT RT WO CLINICAL HISTORY: Plantar fasciitis,heel pain, rupture of rt achilles tendon, stress fx rt TECHNIQUE: Multiplanar multisequence MRI was performed without intravenous contrast. COMPARISON: MR MR LOWER JOINT RT WO from 07/29/2023 CR XR FOOT RT COMPLETE from 05/22/2024 CR XR HEEL RT OS CALCIS from 05/22/2024 FINDINGS: The examination is limited due to patient motion artifact. BONES/JOINTS: No fracture or contusion pattern. There is a stable small hyperintense focus in the pos terior medial talar dome. Marrow signal is otherwise within normal limits. The ankle mortise is red ntained. No joint effusion is present. LIGAMENTS: The tibiofibular and calcaneofibular ligaments are intact. The talofibular ligaments are i ntact. The deltoid ligament is intact. The syndesmosis is unremarkable. Sinus tarsi is normal. MUSCULOTENDINOUS STRUCTURES: Achilles tendon: There is thickening and intermediate signal seen in the distal Achilles tendon. The midportion of the Achilles tendon is attenuated. No hyperintense signal is seen at this time. This may represent a chronic tear. Please correlate with the patient's surgical history. Plantar fascia: The visualized plantar fascia is unremarkable. There is normal signal at its inserti on site onto the calcaneus. There is no abnormal calcaneal signal. No abnormal signal seen around t he visualized portion of the plantar fascia. Anterior Extensor tendons: Unremarkable. Posterior Tibialis: Unremarkable. Flexor Digitorum longus: Unremarkable. Flexor Hallucis longus: Unremarkable. Peroneus longus: Unremarkable. Peroneus brevis:Unremarkable. SOFT TISSUES: Unremarkable. OTHER FINDINGS: None. IMPRESSION: 1. The visualized plantar fascia is unremarkable. No MRI evidence to suggest plantar fasciitis. 2. Achilles tendinosis. The midportion of the Achilles tendon is markedly thinned. No edema is seen around the Achilles tendon at this time. This may reflect a chronic Achilles tendon tear. 3. Stable talar dome defect. DATA REPOSITORY:
== END 2024-06-15 02:35 ==
LOC: DI 02:15
PROVIDERS: PCP Family Medicine; Visit Provider Podiatrist
DX: S86.011A Strain of right Achilles tendon, initial encounter; X58.XXXA Exposure to other specified factors, initial encounter
CPT/HCPCS: 73721

== ENCOUNTER 2024-06-29 01:28 | Outpatient (CLI) | payer MEDICARE, OTHER, SELFPAY ==
--- NOTE | 2024-06-29 14:10 | DI.RAD_ITS ---
Exam(s) RF JOINT INJ. FLUORO GUID RAD EXAM: RF JOINT INJ. FLUORO GUID RAD CLINICAL HISTORY: L SHOULDER PAIN,arthritis lt glenohumeral joint,m19.012,fluoro guided. The Patien t has had persistent left shoulder pain. Noninvasive measures have been tried. To serve as both loren gnostic and therapeutic, an injection under fluoroscopy was recommended. The risks of the procedure were discussed with their Orthopedic provider and the patient elected to proceed. TECHNIQUE: 2D and realtime digital imaging was performed. CONTRAST MATERIAL: Water soluble contrast was utilized. COMPARISON: No exams were available for comparison FINDINGS: The Patient was greeted in the fluoroscopy room. The correct side was identified and the consent was reviewed with the patient and was signed. The patient was properly positioned on the fluoroscopy ta ble. The left shoulderwas then prepped and draped. The left shoulder injection starting point was i dentified by the bony landmarks and fluoroscopy. The skin and soft tissue in the tract of the inject ion was anesthetized with 1% Bupivacaine. A spinal needle was then inserted into the left shoulder j oint at the level of the glenohumeral joint under fluoroscopic guidance. A small amount of Omnipaque solution was injected to confirm intraarticular placement. Once confirmed, the left shoulder was in jected with 5cc of a solution containing 0.5% Bupivacaiine and 40 mg of Depo-Medrol. A bandaid was p laced on the injection site. The patient tolerated the procedure well and left the department in goo d condition. IMPRESSION: Successful left shoulder injection. RADIATION DOSE DELIVERED: Ka,r=4.3 mGy
[2024-06-29] MEDS: Omnipaque 300 MG/ML 10 ML BTL IJ (14:36)
[2024-06-29] MEDS: Bupivacaine 0.5% Pres-Free 10 ML VIAL IJ (14:37)
[2024-06-29] MEDS: methylPREDNISolone ACETATE 40 MG/ML VIAL IJ (14:40)
== END 2024-06-29 01:48 ==
LOC: DI 01:28
PROVIDERS: PCP Family Medicine; Visit Provider Student in an Organized Health Care Education/Training Program
DX: M19.012 Primary osteoarthritis, left shoulder (principal)
CPT/HCPCS: 20610; 77002; J0665; J1010

== ENCOUNTER → 2024-10-20 10:44 | Outpatient (BNVA) | payer MEDICARE, OTHER, SELFPAY | PROVIDERS: PCP Family Medicine; Visit Provider Internal Medicine Cardiovascular Disease | DX: I48.0 Paroxysmal atrial fibrillation (principal); Z79.01 Long term (current) use of anticoagulants | CPT/HCPCS: 99213 ==

== ENCOUNTER 2024-10-31 03:48 | Outpatient (CLI) | payer MEDICARE, OTHER, SELFPAY ==
[2024-10-31 10:27] LABS: Abs Immature Grans 0.03 10^3/uL (0.0-0.06); Absolute Basophil Count 0.02 10^3/uL (0.0-0.2); Absolute Eosinophil Count 0.19 10^3/uL (0.0-0.7); Absolute Lymphocyte Count 1.49 10^3/uL (1.2-3.4); Absolute Monocyte Count 0.39 10^3/uL (0.1-0.8); Absolute Neutrophil Count 3.34 10^3/uL (1.2-6.7); Basophils % 0.4 %; Eosinophils % 3.5 %; HCT 42.2 % (36.0-46.0); HGB 13.8 g/dL (11.2-15.7); Immature Grans % 0.5 %; Lymphocytes % 27.3 %; MCH 30.1 pg (27.0-33.0); MCHC 32.7 % (32.0-36.0); MCV 92 fL (80-95); MPV 10.5 fL (8.0-11.0); Monocytes % 7.1 %; Neutrophils % 61.2 %; Platelet Count 179 10^3/uL (130-400); RBC 4.59 10^6/uL (3.93-5.22); RDW 13.5 % (11.7-14.6); RDW-SD 45.2 fL; WBC 5.46 10^3/uL (4.4-10.8)
[2024-10-31 11:15] LABS: ALT 17 U/L (14-59); AST 19 U/L (15-37); Albumin 3.6 g/dL (3.4-5.0); Alkaline Phosphatase 69 U/L (46-116); Anion Gap 5.5 mmol/L (3-11); BUN 28 mg/dL (7-18); Bilirubin, Total 0.4 mg/dL (0.2-1.0); CO2 27.5 mmol/L (21.0-32.0); Calcium 9.7 mg/dL (8.5-10.1); Chloride 107 mmol/L (98-107); Estimated GFR 55.55 (mL/min/1.73m2); Glucose 138 mg/dL (74-106); Sodium 140 mmol/L (136-145); Total Protein 7.6 g/dL (6.4-8.2)
[2024-11-03 14:48] LABS: %BCR-ABL1 Not Detected; BCR-ABL1 Molecular Response Not Detected; BCR-ABL1 p210 FusionTranscript Not Detected
== END 2024-10-31 03:49 | disposition home or self-care (01) ==
LOC: LBO 03:49
PROVIDERS: PCP Family Medicine; Visit Provider Internal Medicine Hematology & Oncology
DX: C92.10 Chronic myeloid leukemia, BCR/ABL-positive, not having achieved remission (principal)
CPT/HCPCS: 36415; 80053; 81206; 85025

== ENCOUNTER 2024-11-20 08:16 | Outpatient (CLI) | payer MEDICARE, OTHER, SELFPAY ==
[2024-11-20 12:27] LABS: Abs Immature Grans 0.01 10^3/uL (0.0-0.06); Absolute Basophil Count 0.05 10^3/uL (0.0-0.2); Absolute Eosinophil Count 0.21 10^3/uL (0.0-0.7); Absolute Lymphocyte Count 1.34 10^3/uL (1.2-3.4); Absolute Neutrophil Count 3.97 10^3/uL (1.2-6.7); Basophils % 0.8 %; Eosinophils % 3.5 %; HCT 41.6 % (36.0-46.0); HGB 13.6 g/dL (11.2-15.7); Immature Grans % 0.2 %; MCHC 32.7 % (32.0-36.0); MCV 92 fL (80-95); MPV 11.2 fL (8.0-11.0); Monocytes % 8.2 %; Neutrophils % 65.3 %; Platelet Count 178 10^3/uL (130-400); RBC 4.54 10^6/uL (3.93-5.22); RDW 13.8 % (11.7-14.6); WBC 6.08 10^3/uL (4.4-10.8)
[2024-11-20 12:28] LABS: Bilirubin Negative (Negative); Blood Negative (Negative); Clarity Clear (Clear); Glucose Negative (Negative); Ketones Trace mg/dL (Negative); Leukocyte Esterase Negative (Negative); Nitrite Negative (Negative); Specific Gravity 1.025 (1.005-1.025); Urobilinogen 0.2 mg/dL (Up to 0.2); pH 5.5 (5-8)
[2024-11-20 13:03] LABS: ALT 17 U/L (14-59); AST 23 U/L (15-37); Albumin 3.8 g/dL (3.4-5.0); Alkaline Phosphatase 72 U/L (46-116); Anion Gap 8.4 mmol/L (3-11); BUN 27 mg/dL (7-18); Bilirubin, Total 0.5 mg/dL (0.2-1.0); CO2 25.6 mmol/L (21.0-32.0); Chloride 105 mmol/L (98-107); Estimated GFR 55.55 (mL/min/1.73m2); Glucose 149 mg/dL (74-106); Sodium 139 mmol/L (136-145); Total Protein 7.6 g/dL (6.4-8.2)
[2024-11-20 13:08] LABS: Hemoglobin A1C 6.6 % (<5.7)
== END 2024-11-20 08:17 | disposition home or self-care (01) ==
LOC: LOS 08:16
PROVIDERS: PCP Family Medicine; Referring Provider Family Medicine; Visit Provider Family Medicine
DX: I10 Essential (primary) hypertension (principal); R10.9 Unspecified abdominal pain; E11.9 Type 2 diabetes mellitus without complications
CPT/HCPCS: 36415; 80053; 81003; 83036; 85025

== ENCOUNTER 2024-11-22 02:10 | Outpatient (CLI) | payer MEDICARE, OTHER, SELFPAY ==
[2024-11-22] MEDS: Barium Sulfate 2% W/V-Berry Smoothie 450 ML BTL PO ×2 (11:10→11:11)
[2024-11-22] MEDS: Omnipaque 350 MG/ML 100 ML BTL 75 ML IJ (13:15)
[2024-11-22] MEDS: Normal Saline - Diluent 50 ML VIAL IJ (13:16)
--- NOTE | 2024-11-22 13:22 | DI.CT_ITS ---
Exam(s) CT ABDOMEN PELVIS W EXAM: CT ABDOMEN PELVIS W CLINICAL HISTORY: severe abdominal pain,R10.9 TECHNIQUE: Imaging Protocol: Axial computed tomography images with coronal and sagittal reformatted images were created and reviewed. CONTRAST MATERIAL: Intravenous: Omnipaque 350 Contrast volume:75 mL Oral: Yes COMPARISON: CT ABD PELVIS WITH CONTRAST from 08/19/2009 CT CHEST WITHOUT CONTRAST from 04/11/[address] CHEST PE CTA from 08/16/[address] CHEST W from 01/31/2024 FINDINGS: ABDOMEN: Lung Bases: There is a small hiatal hernia. Liver: Normal density. There are several hepatic cysts. No suspicious hepatic masses. Portal, Superior Mesenteric, and Splenic Veins: Unremarkable. Gallbladder and Biliary Tract: Status post cholecystectomy. There has been no change in the size of the extrahepatic bile duct. No intrahepatic biliary ductal dilatation is present. Pancreas: Normal density, no abnormal calcifications or inflammatory process. Spleen: Normal. Adrenals: No masses seen. Kidneys: Normal size, contour and axis. No radiodense stones or obstructive uropathy. No masses seen. Abdominal Aorta: Abdominal portion non-dilated. Atherosclerotic calcification is present. Bowel: There is diverticulosis of the colon without evidence of acute diverticulitis. No bowel wall thickening or obstruction is seen. There is no evidence of appendicitis. Peritoneal Cavity: No ascites, collection or mesenteric inflammatory response. No free air. Lymph Nodes: Within normal limits. Bones: Within normal limits for the patient's age. There has been posterior spinal surgery at L5-S1. Soft Tissues: Unremarkable. There is a fat containing umbilical hernia. PELVIS: Bladder: Symmetric distention, no gross wall thickening. Reproductive Organs: Status post hysterectomy. There is a 2 cm cyst seen in the left adnexa which ap pears to be ovarian in origin. Lymph Nodes: Within normal limits. Bones: Within normal limits for the patient's age. IMPRESSION: 1. No acute abdominal or pelvic process. 2. Colonic diverticulosis without evidence of acute diverticulitis. 3. Moderate sized fat containing umbilical hernia. RADIATION DOSE DELIVERED: 579.79mGy.cm Total DLP DATA REPOSITORY: All CT scans at this facility are submitted to the National Radiology Data Registry (NRDR) Dose Index Registry (DIR) with the [employer] (ACR). RADIATION OPTIMIZATION: All CT scans at this facility use at least one of these dose optimization te chniques: automated exposure control; mA and/or kV adjustment per patient size (includes targeted exa ms where dose is matched to clinical indication); or iterative reconstruction.
== END 2024-11-22 02:30 ==
LOC: DI 02:10
PROVIDERS: PCP Family Medicine; Visit Provider Family Medicine
DX: K57.30 Diverticulosis of large intestine without perforation or abscess without bleeding (principal)
CPT/HCPCS: 74177; J3490

== ENCOUNTER 2024-12-14 02:38 | Outpatient (CLI) | payer MEDICARE, OTHER, SELFPAY ==
--- NOTE | 2024-12-14 08:00 | DI.RAD_ITS ---
Exam(s) RF JOINT INJ. FLUORO GUID RAD EXAM: RF JOINT INJ. FLUORO GUID RAD CLINICAL HISTORY: PAIN,arthritis lt glenohumeral joint,fluoro guided injection,M19.012. The Patient has had persistent left shoulder pain. Noninvasive measures have been tried. To serve as both diag nostic and therapeutic, an injection under fluoroscopy was recommended. The risks of the procedure w ere discussed with their Orthopedic provider and the patient elected to proceed. TECHNIQUE: 2D and realtime digital imaging was performed. CONTRAST MATERIAL: Water soluble contrast was utilized. COMPARISON: No exams were available for comparison FINDINGS: The Patient was greeted in the fluoroscopy room. The correct side was identified and the consent was reviewed with the patient and was signed. The patient was properly positioned on the fluoroscopy ta ble. The left shoulderwas then prepped and draped. The left shoulder injection starting point was i dentified by the bony landmarks and fluoroscopy. The skin and soft tissue in the tract of the inject ion was anesthetized with 1% Bupivacaine. A spinal needle was then inserted into the left shoulder j oint at the level of the glenohumeral joint under fluoroscopic guidance. A small amount of Omnipaque solution was injected to confirm intraarticular placement. Once confirmed, the left shoulder was in jected with 5cc of a solution containing 0.5% Bupivacaiine and 40 mg of Depo-Medrol. A bandaid was p laced on the injection site. The patient tolerated the procedure well and left the department in goo d condition. IMPRESSION: Successful left shoulder injection. RADIATION DOSE DELIVERED: Ka,r=1.93 mGy
[2024-12-14] MEDS: methylPREDNISolone ACETATE 40 MG/ML VIAL IM (13:52)
[2024-12-14] MEDS: Bupivacaine 0.5% Pres-Free 10 ML VIAL IJ (13:55)
[2024-12-14] MEDS: Omnipaque 300 MG/ML 10 ML BTL IJ (13:56)
== END 2024-12-14 02:58 ==
LOC: DI 02:38
PROVIDERS: PCP Family Medicine; Visit Provider Student in an Organized Health Care Education/Training Program
DX: M19.012 Primary osteoarthritis, left shoulder (principal)
CPT/HCPCS: 20610; 77002; J0665; J1010

== ENCOUNTER 2024-12-28 11:08 | Outpatient (CLI) | payer MEDICARE, OTHER, SELFPAY ==
[2024-12-28 13:03] LABS: Estimated GFR 55.55 (mL/min/1.73m2)
[2024-12-28 14:29] LABS: TSH (W/Ref FT4) 0.39 uIU/mL (0.36-3.74); Vitamin B12 1049 pg/mL (193-986)
== END 2024-12-28 11:09 | disposition home or self-care (01) ==
PROVIDERS: PCP Family Medicine; Referring Provider Family Medicine; Visit Provider Family Medicine
DX: Z01.812 Encounter for preprocedural laboratory examination (principal); E03.9 Hypothyroidism, unspecified; G62.9 Polyneuropathy, unspecified
CPT/HCPCS: 36415; 82565; 82607; 84443

== ENCOUNTER 2024-12-29 00:30 | Outpatient (CLI) | payer MEDICARE, OTHER, SELFPAY ==
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
== END 2024-12-29 00:50 ==
LOC: DI 00:30
PROVIDERS: PCP Family Medicine; Visit Provider Family Medicine
DX: M25.531 Pain in right wrist (principal)
CPT/HCPCS: 73110

== ENCOUNTER → 2025-04-05 14:27 | Outpatient (BNVA) | payer MEDICARE, OTHER, SELFPAY | PROVIDERS: PCP Family Medicine; Referring Provider Family Medicine; Visit Provider Student in an Organized Health Care Education/Training Program | DX: M19.031 Primary osteoarthritis, right wrist (principal) | CPT/HCPCS: 99213 ==

== ENCOUNTER 2025-04-25 15:16 | Emergency (ER) | payer MEDICARE, OTHER, SELFPAY ==
[2025-04-25] VITALS (32 sets, daily range): BP systolic 134–167; BP diastolic 54–82; PULSE 57–75; RESP 13–23; TEMP 36.8; O2SAT 93–97
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
--- NOTE | 2025-04-25 15:17 | NUR.NOTE ---
[facility] Cristela Polo [phone] Nursing Note:
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
[2025-04-25 15:43] LABS: Abs Immature Grans 0.06 10^3/uL (0.0-0.06); HCT 40.8 % (36.0-46.0); HGB 13.0 g/dL (11.2-15.7); Immature Grans % 0.8 %; MCH 29.6 pg (27.0-33.0); MCHC 31.9 % (32.0-36.0); MCV 93 fL (80-95); MPV 10.1 fL (8.0-11.0); Platelet Count 152 10^3/uL (130-400); RBC 4.39 10^6/uL (3.93-5.22); RDW 13.6 % (11.7-14.6); RDW-SD 46.0 fL; WBC 7.82 10^3/uL (4.4-10.8)
[2025-04-25 15:59] LABS: INR 1.0 (0.9-1.1); PTT Activated 24.6 sec (20.6-30.2); Prothrombin Time 9.9 sec (9.1-11.1)
[2025-04-25 16:03] LABS: ALT 15 U/L (14-59); AST 16 U/L (15-37); Albumin 3.2 g/dL (3.4-5.0); Alkaline Phosphatase 56 U/L (46-116); Anion Gap 8.8 mmol/L (3-11); BUN 27 mg/dL (7-18); Bilirubin, Total 0.4 mg/dL (0.2-1.0); CO2 29.2 mmol/L (21.0-32.0); Calcium 9.1 mg/dL (8.5-10.1); Chloride 102 mmol/L (98-107); Estimated GFR 63.04 (mL/min/1.73m2); Glucose 137 mg/dL (74-106); Magnesium 1.5 mg/dL (1.8-2.4); Potassium 4.1 mmol/L (3.5-5.1); Sodium 140 mmol/L (136-145); Total Protein 6.8 g/dL (6.4-8.2); Troponin I 15 ng/L (<or=51)
[2025-04-25 17:44] LABS: Troponin I 17 ng/L (<or=51)
[2025-04-25] MEDS: Ketorolac 15 MG/ML VIAL IVP (18:16)
[2025-04-25] MEDS: Lidocaine 5% Patch 1 PATCH TP (18:16)
[2025-04-25 18:55] LABS: Troponin I 17 ng/L (<or=51)
== END 2025-04-25 20:17 | disposition home or self-care (01) ==
PROVIDERS: Emergency Provider Emergency Medicine; PCP Family Medicine
DX: S22.20XA Unspecified fracture of sternum, initial encounter for closed fracture (principal); S09.8XXA Other specified injuries of head, initial encounter; S16.1XXA Strain of muscle, fascia and tendon at neck level, initial encounter; V47.6XXA Car passenger injured in collision with fixed or stationary object in traffic accident, initial encounter
CPT/HCPCS: 99284 ×2; 96374; 36415; 71250; 80053; 93005; 70450; 72125; 83735; 84484; 85025; 85610; 85730; 93010; J1885

== ENCOUNTER 2025-04-27 10:22 | Emergency (ER) | payer MEDICARE, OTHER, SELFPAY ==
[2025-04-27 10:29] VITALS: BP 161/62; PULSE 81; RESP 16; TEMP 36.9; O2SAT 96
[2025-04-27] MEDS: HYDROmorphone 2 MG/ML SYR 0.5 MG IVP (11:01)
[2025-04-27] MEDS: Lidocaine 5% Patch 1 PATCH TP (11:01)
[2025-04-27] MEDS: ACETAMINOPHEN 1,000 MG/100 ML BAG 400 MG IVPB (11:01)
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
[2025-04-27] MEDS: HYDROmorphone 2 MG TAB PO (12:03)
== END 2025-04-27 12:17 | disposition home or self-care (01) ==
PROVIDERS: Emergency Provider Emergency Medicine; PCP Family Medicine
DX: S22.20XD Unspecified fracture of sternum, subsequent encounter for fracture with routine healing (principal); S16.1XXD Strain of muscle, fascia and tendon at neck level, subsequent encounter; V47.6XXD Car passenger injured in collision with fixed or stationary object in traffic accident, subsequent encounter
CPT/HCPCS: 99283; 99284; 96374; 96375; 71046; J0131; J1171

== ENCOUNTER → 2025-05-01 09:54 | Outpatient (BNVA) | payer MEDICARE, OTHER, SELFPAY | PROVIDERS: PCP Family Medicine; Referring Provider Family Medicine; Visit Provider Student in an Organized Health Care Education/Training Program | DX: S22.20XA Unspecified fracture of sternum, initial encounter for closed fracture (principal); Z79.01 Long term (current) use of anticoagulants; V87.7XXA Person injured in collision between other specified motor vehicles (traffic), initial encounter | CPT/HCPCS: 99213 ==

== ENCOUNTER → 2025-06-13 13:51 | Outpatient (BNVA) | payer MEDICARE, OTHER, SELFPAY | PROVIDERS: PCP Family Medicine; Visit Provider Internal Medicine Cardiovascular Disease | DX: I48.0 Paroxysmal atrial fibrillation (principal); I48.92 Unspecified atrial flutter; R00.0 Tachycardia, unspecified; Z79.01 Long term (current) use of anticoagulants | CPT/HCPCS: 99213 ==